=== PATIENT | male | born 1930 | race Caucasian/White ===

== ENCOUNTER 2017-06-13 19:24 | Inpatient (IN) | payer MEDICARE, MEDICAID ==
[2017-06-13] MEDS ORDERED: Sodium Chloride 0.9% 1,000 ML IV ONE (19:46)
--- NOTE | 2017-06-13 19:52 | ED Physician Chart ---
ED Chief Complaint/HPI - Patient Information Date Seen:: 06/13/17 Time Seen:: 19:40 Chief Complaint:: abdominal pain and fever History of Present Illness:: Patient had a temperature about 100.5 and abdominal [facility]. He has no vomiting or diarrhea. Historian:: EMS Review:: Nurse's Note Reviewed, Transfer documents Reviewed ED Review of Systems - Review of Systems General/Constitutional: Fever Skin: No skin lesions Head: No headache Eyes: No loss of vision ENT: No earache Neck: No neck pain Cardio Vascular: No chest pain, No palpitations Pulmonary: No SOB GI: Pain G/U: No dysuria Musculoskeletal: No bone or joint pain Endocrine: No polyuria, No polydipsia Psychiatric: Prior psych history Hematopoietic: No bruising Allergic/Immuno: No urticaria Neurological: No syncope ED Past Medical History - Past Medical History Past Medical History: Other (pleural effusion; aortic atherosclerosis; says for pulmonary embolus; rhabdomyolysis; skin cancer; arthritis;) Family History: Other (unavailable) Social History: Care Facility (unavailable), Other Surgical History: other (unavailable) Psychiatricy History: Dementia Family Medical History - Family Member Mother History Unknown: Yes ED Physical Exam - Physical Examination Other Gen/Cons comments:: Chronically ill-appearing; nonverbal Head: Atraumatic Eyes: Lids, conjuctiva normal Skin: No lymphadenopathy ENMT: External ears, nose nl Neck: No nuchal rigidity Respiratory: Nl effort/Exclusion, Clear to Auscultation Cardio Vascular: RRR GI: No tenderness/rebounding/guarding Other GI comments:: Tender left inguinal hernia : No CVA tenderness Extremities: Normal digits & nails Neuro/Psych: No focal deficits ED Labs/Radiology/EKG Results - Lab Results Results: Laboratory Results - last 24 hr 06/13/17 06/13/17 19:51 19:51 WBC 8.9 RBC 3.91 Hgb 11.0 L Hct 33.2 L MCV 84.9 MCH 28.1 MCHC Differential 33.1 RDW 14.8 Plt Count 450 H MPV 6.1 Neutrophils % 86.1 H Lymphocytes % 5.8 L Monocytes % 6.2 Eosinophils % 1.3 Basophils % 0.6 Sodium 146 H Potassium 3.7 Chloride 111 H Carbon Dioxide 29.4 Anion Gap 9.3 BUN 63 H Creatinine 1.2 Est GFR ( Amer) TNP Est GFR (Non-Af Amer) TNP BUN/Creatinine Ratio 52.5 Glucose 140 H Calcium 8.9 Lipase 47 - Radiology Results Results: CT abdomen and pelvis: Bilateral pulmonary effusions or infiltrates; large left inguinal hernia; severe distal fecal impaction; ED Septic Shock - . Is Septic Shock (SBP<90, OR Lactate>4 mmol\L) present?: No ED Reassessment (Disposition) - Reassessment Reassessment Condition:: Unchanged - Diagnosis Diagnosis:: Pneumonia; left febrile hernia fecal impaction; dehydration - Patient Disposition Admitted to:: Telemetry Spoke to:: Kurtis Valderrama Admitting Medical Physician:: Kurtis Valderrama Condition at Disposition:: Stable, Unchanged
[2017-06-13 19:57] LABS: % BASOPHILS 0.6 % (0.0-2.0); % EOSINOPHILS 1.3 % (0.0-5.0); % LYMPHOCYTES 5.8 % (20.0-50.0); % MONOCYTES 6.2 % (2.0-10.0); % NEUTROPHILS 86.1 % (40.0-80.0); BASOPHILE ABSOLUTE 0.1 Th/cumm (0-0.2); EOSINOPHILE ABSOLUTE 0.1 Th/cmm (0.1-0.4); HEMATOCRIT 33.2 % (41.0-60); LYMPHOCYTE ABSOLUTE 0.5 Th/cmm (1.5-3.0); MEAN CELL VOLUME 84.9 fl (80-99); MEAN CORPUSCULAR HEMOGLOBIN 28.1 pg (27.0-31.0); MEAN CORPUSCULAR HGB CONC 33.1 pg (28.0-36.0); MEAN PLATELET VOLUME 6.1 fl; MONOCYTE ABSOLUTE 0.6 Th/cmm (0.3-1.0); NEUTROPHILE ABSOLUTE 7.6 Th/cmm (1.8-8.0); PLATELET COUNT 450 Th/cmm (150-400); RED BLOOD COUNT 3.91 Mil/cmm (3.80-5.80); RED CELL DISTRIBUTION WIDTH 14.8 % (11.5-20.0); WHITE BLOOD COUNT 8.9 Th/cmm (4.8-10.8)
[2017-06-13 20:12] LABS: ANION GAP 9.3 (7.0-16.0); BUN - UREA NITROGEN 63 mg/dL (7-25); CALCIUM SERUM 8.9 mg/dL (8.6-10.3); CARBON DIOXIDE 29.4 mEq/L (21.0-31.0); CHLORIDE 111 mEq/L (98-107); CREATININE - SERUM 1.2 mg/dL (0.7-1.3); GLUCOSE 140 mg/dL (70-105); LIPASE 47 U/L (11-82); POTASSIUM SERUM 3.7 mEq/L (3.5-5.1); SODIUM SERUM 146 mEq/L (136-145)
[2017-06-13] MEDS ORDERED: cefTRIAXone 1 GM in Sodium Chloride 0.9% 50 ML IV ONE (21:47)
[2017-06-13] MEDS ORDERED: Acetaminophen 500 MG TAB PO PRN (23:17)
[2017-06-13] MEDS ORDERED: Morphine Sulfate 2 mg/mL 1mL Syr IVP PRN (23:18)
[2017-06-13] MEDS ORDERED: Ipratropium Neb 0.5 mg/2.5 mL UD IH PRN (23:18)
[2017-06-13] MEDS ORDERED: guaiFENesin 200 MG/10 ML UDC PO PRN (23:18)
[2017-06-13] MEDS ORDERED: Maalox 30 mL Cup PO PRN (23:18)
[2017-06-13] MEDS ORDERED: Albuterol Nebulizer 2.5mg/3mL HHN PRN (23:18)
[2017-06-13] MEDS ORDERED: D5-0.45NS 1,000 ML IV SCH (23:30)
[2017-06-14 05:27] LABS: % BASOPHILS 0.2 % (0.0-2.0); % EOSINOPHILS 2.9 % (0.0-5.0); % LYMPHOCYTES 8.9 % (20.0-50.0); % MONOCYTES 6.5 % (2.0-10.0); % NEUTROPHILS 81.5 % (40.0-80.0); EOSINOPHILE ABSOLUTE 0.2 Th/cmm (0.1-0.4); HEMATOCRIT 31.6 % (41.0-60); HEMOGLOBIN 10.4 gm/dL (12-16); LYMPHOCYTE ABSOLUTE 0.8 Th/cmm (1.5-3.0); MEAN CELL VOLUME 85.2 fl (80-99); MEAN CORPUSCULAR HGB CONC 32.8 pg (28.0-36.0); MEAN PLATELET VOLUME 6.1 fl; MONOCYTE ABSOLUTE 0.6 Th/cmm (0.3-1.0); NEUTROPHILE ABSOLUTE 6.9 Th/cmm (1.8-8.0); PLATELET COUNT 460 Th/cmm (150-400); RED BLOOD COUNT 3.71 Mil/cmm (3.80-5.80); RED CELL DISTRIBUTION WIDTH 15.1 % (11.5-20.0); WHITE BLOOD COUNT 8.5 Th/cmm (4.8-10.8)
[2017-06-14 05:50] LABS: ALB/GLOB RATIO 0.8 (1.0-1.8); ALBUMIN 3.1 gm/dL (4.2-5.5); ALKALINE PHOSPHATASE 61 U/L (34-104); ANION GAP 8.7 (7.0-16.0); BILIRUBIN,TOTAL 0.3 mg/dL (0.3-1.0); BUN - UREA NITROGEN 55 mg/dL (7-25); CALCIUM SERUM 8.8 mg/dL (8.6-10.3); CARBON DIOXIDE 31.2 mEq/L (21.0-31.0); CHLORIDE 113 mEq/L (98-107); CREATININE - SERUM 1.1 mg/dL (0.7-1.3); GLUCOSE 110 mg/dL (70-105); POTASSIUM SERUM 3.9 mEq/L (3.5-5.1); SGOT 40 U/L (13-39); SGPT/ALT 32 U/L (7-52); SODIUM SERUM 149 mEq/L (136-145); TOTAL PROTEIN,SERUM 6.8 gm/dL (6.0-8.3)
--- NOTE | 2017-06-14 08:11 | Diagnostic Imaging Report ---
Exam: Portable chest x-ray. HISTORY: Pneumonia. Findings: Portable examination of the chest at 2105 hours reviewed no prior studies available comparison. Mediastinal structures midline. The heart is not enlarged. There is evidence for left lower lobe pneumonia and effusion. COPD changes are noted. Old healed fractures of right rib cage appreciated Multiple healed fractures of the left rib cage are noted, clinical correlation recommended. IMPRESSION: Left lower lobe pneumonia and effusion. No healed fractures left rib cage acuity is unknown, clinical correlation recommended. COPD changes.
--- NOTE | 2017-06-14 08:53 | Diagnostic Imaging Report ---
CT abdomen and pelvis without intravenous contrast Indication: Abdominal pain Comparison: None, Technique: Axial images were obtained from the lung bases to the bilateral proximal femurs without IV contrast. Coronal reconstructions were made. total DLP: 374, CTDI7.8 FINDINGS: Exam is limited due to motion. There is a moderate to large partially visualized left pleural effusion. Small right effusion is noted. Bibasal passive atelectatic/consolidative changes are noted. Assessment of solid organs is limited due to lack of IV contrast. No evidence of focal hepatic or splenic lesions. Limited assessment of the pancreas demonstrates no discrete focal lesions. There is mild haziness of the regional mesenteric fat planes. No focal adrenal lesions. A large right renal cyst is noted with possible lobulation. This measures 9 x 5 cm in greatest dimension. No hydronephrosis or evidence of renal stones. Heavy atherosclerotic vascular disease noted. There is severe distal fecal impaction mass effect upon the prostate gland. The prostate gland measures 5 x 3.7 cm. There is a large left inguinal hernia containing multiple bowel loops. Gas distended loops of bowel are noted with copious amount of stool. Gas distended stomach is noted. Appendix is not well-visualized. Degenerative changes of the spine are noted all mild spinal compression deformities of L1 and L4 are noted. IMPRESSION: Large left inguinal hernia containing multiple bowel loops. Early obstructive process cannot be excluded. Clinical correlation and follow-up is recommended. Severe distal fecal impaction with mass effect upon the prostate gland. Generalized gaseous distended loops of bowel are noted with copious stool. Distended stomach. Mild haziness of the mesenteric fat planes. This is nonspecific and may be due to inflammatory process such as mesenteric adenitis. Inflammation from the pancreas is considered less likely, however, correlation should be made with patient's clinical findings. Large right renal cyst, consider follow-up with ultrasound. Moderate to large left effusion and small right effusion and bibasilar passive atelectatic and consolidative changes. Mildly prominent prostate gland, please correlate with clinical findings. Heavy atherosclerotic vascular disease.
[2017-06-14] MEDS ORDERED: Non-Formulary Item 1 EA (Arginine/Ascorbate Sod/Vite Ac [Arginaid Powder] 1 EACH) PO SCH (09:00)
[2017-06-14] MEDS ORDERED: Non-Formulary Item 1 EA (Amino Acids/Protein Hydrolys [Pro-Stat Sugar Free Liquid] 30 ML) PO SCH (09:00)
--- NOTE | 2017-06-14 09:08 | General Progress Note ---
Subjective - Review of Systems Service Date: 06/14/17 Events since last encounter: admitted for fever and abdominal pain labs ok CT scan - fecal impaction and inguinal hernia PE non-verbal, very tender right inguinal hernia, large inguinal hernia on left abdomen is soft message left with family - will need inguinal hernia repair Objective - Results Result Diagrams: 06/14/17 05:15 06/14/17 05:15 Recent Labs: Laboratory Last Values WBC 8.5 Th/cmm (4.8-10.8) 06/14/17 05:15 RBC 3.71 Mil/cmm (3.80-5.80) L 06/14/17 05:15 Hgb 10.4 gm/dL (12-16) L 06/14/17 05:15 Hct 31.6 % (41.0-60) L 06/14/17 05:15 MCV 85.2 fl (80-99) 06/14/17 05:15 MCH 28.0 pg (27.0-31.0) 06/14/17 05:15 MCHC Differential 32.8 pg (28.0-36.0) 06/14/17 05:15 RDW 15.1 % (11.5-20.0) 06/14/17 05:15 Plt Count 460 Th/cmm (150-400) H 06/14/17 05:15 MPV 6.1 fl 06/14/17 05:15 Neutrophils % 81.5 % (40.0-80.0) H 06/14/17 05:15 Lymphocytes % 8.9 % (20.0-50.0) L 06/14/17 05:15 Monocytes % 6.5 % (2.0-10.0) 06/14/17 05:15 Eosinophils % 2.9 % (0.0-5.0) 06/14/17 05:15 Basophils % 0.2 % (0.0-2.0) 06/14/17 05:15 Sodium 149 mEq/L (136-145) H 06/14/17 05:15 Potassium 3.9 mEq/L (3.5-5.1) 06/14/17 05:15 Chloride 113 mEq/L (98-107) H 06/14/17 05:15 Carbon Dioxide 31.2 mEq/L (21.0-31.0) H 06/14/17 05:15 Anion Gap 8.7 (7.0-16.0) 06/14/17 05:15 BUN 55 mg/dL (7-25) H 06/14/17 05:15 Creatinine 1.1 mg/dL (0.7-1.3) 06/14/17 05:15 Est GFR ( Amer) TNP 06/14/17 05:15 Est GFR (Non-Af Amer) TNP 06/14/17 05:15 BUN/Creatinine Ratio 50.0 06/14/17 05:15 Glucose 110 mg/dL (70-105) H 06/14/17 05:15 Calcium 8.8 mg/dL (8.6-10.3) 06/14/17 05:15 Total Bilirubin 0.3 mg/dL (0.3-1.0) 06/14/17 05:15 AST 40 U/L (13-39) H 06/14/17 05:15 ALT 32 U/L (7-52) 06/14/17 05:15 Alkaline Phosphatase 61 U/L (34-104) 06/14/17 05:15 Ammonia 35 umol/L (16-53) 06/14/17 05:15 B-Natriuretic Peptide 182.0 pg/mL (5.0-100.0) H 06/14/17 05:15 Total Protein 6.8 gm/dL (6.0-8.3) 06/14/17 05:15 Albumin 3.1 gm/dL (4.2-5.5) L 06/14/17 05:15 Globulin 3.7 gm/dL 06/14/17 05:15 Albumin/Globulin Ratio 0.8 (1.0-1.8) L 06/14/17 05:15 Lipase 47 U/L (11-82) 06/13/17 19:51 TSH 0.71 uIU/ml (0.34-5.60) 06/14/17 05:15 - Physical Exam Vitals and I&O: Vital Signs Temp 98.0 F 06/14/17 03:16 Pulse 84 06/14/17 03:16 Resp 18 06/14/17 03:16 BP 141/76 06/14/17 03:16 Pulse Ox 100 06/14/17 03:16 Intake & Output 06/13/17 06/14/17 06/14/17 18:59 06:59 18:59 Intake Total 50 Balance 50 Weight (lbs) 54.431 kg Intake: Intake, IV Amount 50 Cefepime 1 gm In Dextrose 50 5% 50 ml @ 100 mls/hr IV Q12HR [facility] Rx#:[id number] Other: # Voids 2 # Bowel Movements 1 Stool Characteristics Soft Active Medications: Current Medications Acetaminophen (Tylenol Extra Strength) 500 mg PO Q6HR PRN PRN Reason: Pain (Mild) Stop: 08/12/17 23:16 Al Hydrox/Mg Hydrox/Simethicone (Maalox) 30 ml PO Q6H PRN PRN Reason: Dyspepsia Stop: 08/12/17 23:17 Albuterol Sulfate (Albuterol 2.5mg/3ml Neb Ud) 2.5 mg HHN Q2HRT PRN PRN Reason: Shortness of Breath or Wheeze Stop: 08/12/17 23:17 Ascorbic Acid (Vitamin C) 500 mg PO DAILY [facility] Stop: 08/13/17 08:59 Guaifenesin (Robitussin) 200 mg PO Q4HR PRN PRN Reason: Cough or Congestion Stop: 08/12/17 23:17 Heparin Sodium (Porcine) (Heparin) 5,000 units SUBQ Q12HR [facility] Stop: 08/13/17 08:59 Cefepime HCl 1 gm/ Dextrose 50 mls @ 100 mls/hr IV Q12HR [facility] Stop: 08/12/17 23:29 Last Infusion: 06/14/17 07:52 Dose: Infused Dextrose/Sodium Chloride (D5-0.45ns) 1,000 mls @ 80 mls/hr IV .[id number] [facility] Stop: 08/12/17 23:29 Last Admin: 06/14/17 00:30 Dose: 80 mls/hr Ipratropium [place] (Atrovent Neb 0.5mg/2.5ml) 0.5 mg IH Q2HRT PRN PRN Reason: Shortness of Breath or Wheeze Stop: 08/12/17 23:17 Lactulose (Cephulac) 15 gm PO BID [facility] Stop: 08/13/17 08:59 Morphine Sulfate (Morphine) 1 mg IVP Q4H PRN PRN Reason: Severe Pain Stop: 08/12/17 23:17 Ondansetron HCl (Zofran) 4 mg IV Q8H PRN PRN Reason: Nausea / Vomiting Stop: 08/12/17 23:17 Tamsulosin HCl (Flomax) 0.4 mg PO HS [facility] Stop: 08/13/17 20:59 Zinc Sulfate (Zinc Sulfate) 220 mg PO DAILY [facility] Stop: 08/13/17 08:59 Zolpidem Tartrate (Ambien) 5 mg PO HS PRN PRN Reason: Insomnia Stop: 08/12/17 23:17
[2017-06-14] MEDS: Lactulose 10 Gm/15 mL 30mL UDC PO SCH ×2 (10:09→18:32)
[2017-06-14] MEDS: Multivitamin w/ Minerals Tab PO SCH (10:09)
[2017-06-14] MEDS ORDERED: Fleet Enema 135 mL RC ONE (12:00)
[2017-06-14] MEDS ORDERED: MINERAL OIL ENEMA 135 ML BOTTLE RC ONE (12:20)
[2017-06-14] MEDS ORDERED: Magnesium Citrate 1.75 GM/300 mL Bottle PO ONE (12:21)
[2017-06-14] MEDS: Dextrose 5% 1,000 ML IV SCH (14:44)
--- NOTE | 2017-06-14 14:52 | Internal Medicine Prog Note ---
Internal Medicine Subjective - Subjective Service Date: 06/14/17 ([facility] [id number]) Internal Medicine Objective - Results Result Diagrams: 06/14/17 05:15 06/14/17 05:15 Recent Labs: Laboratory Last Values WBC 8.5 Th/cmm (4.8-10.8) 06/14/17 05:15 RBC 3.71 Mil/cmm (3.80-5.80) L 06/14/17 05:15 Hgb 10.4 gm/dL (12-16) L 06/14/17 05:15 Hct 31.6 % (41.0-60) L 06/14/17 05:15 MCV 85.2 fl (80-99) 06/14/17 05:15 MCH 28.0 pg (27.0-31.0) 06/14/17 05:15 MCHC Differential 32.8 pg (28.0-36.0) 06/14/17 05:15 RDW 15.1 % (11.5-20.0) 06/14/17 05:15 Plt Count 460 Th/cmm (150-400) H 06/14/17 05:15 MPV 6.1 fl 06/14/17 05:15 Neutrophils % 81.5 % (40.0-80.0) H 06/14/17 05:15 Lymphocytes % 8.9 % (20.0-50.0) L 06/14/17 05:15 Monocytes % 6.5 % (2.0-10.0) 06/14/17 05:15 Eosinophils % 2.9 % (0.0-5.0) 06/14/17 05:15 Basophils % 0.2 % (0.0-2.0) 06/14/17 05:15 Sodium 149 mEq/L (136-145) H 06/14/17 05:15 Potassium 3.9 mEq/L (3.5-5.1) 06/14/17 05:15 Chloride 113 mEq/L (98-107) H 06/14/17 05:15 Carbon Dioxide 31.2 mEq/L (21.0-31.0) H 06/14/17 05:15 Anion Gap 8.7 (7.0-16.0) 06/14/17 05:15 BUN 55 mg/dL (7-25) H 06/14/17 05:15 Creatinine 1.1 mg/dL (0.7-1.3) 06/14/17 05:15 Est GFR ( Amer) TNP 06/14/17 05:15 Est GFR (Non-Af Amer) TNP 06/14/17 05:15 BUN/Creatinine Ratio 50.0 06/14/17 05:15 Glucose 110 mg/dL (70-105) H 06/14/17 05:15 Calcium 8.8 mg/dL (8.6-10.3) 06/14/17 05:15 Total Bilirubin 0.3 mg/dL (0.3-1.0) 06/14/17 05:15 AST 40 U/L (13-39) H 06/14/17 05:15 ALT 32 U/L (7-52) 06/14/17 05:15 Alkaline Phosphatase 61 U/L (34-104) 06/14/17 05:15 Ammonia 35 umol/L (16-53) 06/14/17 05:15 B-Natriuretic Peptide 182.0 pg/mL (5.0-100.0) H 06/14/17 05:15 Total Protein 6.8 gm/dL (6.0-8.3) 06/14/17 05:15 Albumin 3.1 gm/dL (4.2-5.5) L 06/14/17 05:15 Globulin 3.7 gm/dL 06/14/17 05:15 Albumin/Globulin Ratio 0.8 (1.0-1.8) L 06/14/17 05:15 Lipase 47 U/L (11-82) 06/13/17 19:51 TSH 0.71 uIU/ml (0.34-5.60) 06/14/17 05:15 - Physical Exam Vitals and I&O: Vital Signs Temp 98.0 F 06/14/17 03:16 Pulse 84 06/14/17 03:16 Resp 18 06/14/17 03:16 BP 141/76 06/14/17 03:16 Pulse Ox 100 06/14/17 03:16 Intake & Output 06/13/17 06/14/17 06/14/17 18:59 06:59 18:59 Intake Total 100 Balance 100 Weight (lbs) 120 lb Intake: Intake, IV Amount 100 Cefepime 1 gm In Dextrose 100 5% 50 ml @ 100 mls/hr IV Q12HR [facility] Rx#:[id number] Other: # Voids 2 # Bowel Movements 1 Stool Characteristics Soft Active Medications: Current Medications Acetaminophen (Tylenol Extra Strength) 500 mg PO Q6HR PRN PRN Reason: Pain (Mild) Stop: 08/12/17 23:16 Al Hydrox/Mg Hydrox/Simethicone (Maalox) 30 ml PO Q6H PRN PRN Reason: Dyspepsia Stop: 08/12/17 23:17 Albuterol Sulfate (Albuterol 2.5mg/3ml Neb Ud) 2.5 mg HHN Q2HRT PRN PRN Reason: Shortness of Breath or Wheeze Stop: 08/12/17 23:17 Ascorbic Acid (Vitamin C) 500 mg PO DAILY [facility] Stop: 08/13/17 08:59 Last Admin: 06/14/17 10:09 Dose: 500 mg Guaifenesin (Robitussin) 200 mg PO Q4HR PRN PRN Reason: Cough or Congestion Stop: 08/12/17 23:17 Cefepime HCl 1 gm/ Dextrose 50 mls @ 100 mls/hr IV Q12HR [facility] Stop: 08/12/17 23:29 Last Infusion: 06/14/17 10:56 Dose: Infused Dextrose (D5w) 1,000 mls @ 75 mls/hr IV .[id number] [facility] Stop: 08/13/17 13:58 Last Admin: 06/14/17 14:44 Dose: 75 mls/hr Ipratropium [place] (Atrovent Neb 0.5mg/2.5ml) 0.5 mg IH Q2HRT PRN PRN Reason: Shortness of Breath or Wheeze Stop: 08/12/17 23:17 Lactulose (Cephulac) 15 gm PO BID [facility] Stop: 08/13/17 08:59 Last Admin: 06/14/17 10:09 Dose: 15 gm Mineral Oil (Mineral Oil 30 Ml) 30 ml PO BID PRN PRN Reason: Constipation Stop: 08/13/17 12:20 Ondansetron HCl (Zofran) 4 mg IV Q8H PRN PRN Reason: Nausea / Vomiting Stop: 08/12/17 23:17 Pantoprazole Sodium (Protonix) 40 mg IVP BIDAC [facility] Stop: 08/13/17 16:59 Tamsulosin HCl (Flomax) 0.4 mg PO HS [facility] Stop: 08/13/17 20:59 Zinc Sulfate (Zinc Sulfate) 220 mg PO DAILY [facility] Stop: 08/13/17 08:59 Last Admin: 06/14/17 10:10 Dose: 220 mg Zolpidem Tartrate (Ambien) 5 mg PO HS PRN PRN Reason: Insomnia Stop: 08/12/17 23:17
--- NOTE | 2017-06-14 18:09 | History & Physical ---
ADMIT DATE: 06/14/2017 CHIEF COMPLAINT: Abdominal pain and fever. HISTORY OF PRESENT ILLNESS: This is an 87-year-old male who is a intermediate resident of [place] who is brought here to [facility] due to abdominal pain as well as fever. The patient did not have any nausea, vomiting or any diarrhea. For further management, the patient is now admitted to the telemetry unit. PAST MEDICAL HISTORY: Pleural effusion, aortic arthrosclerosis, pulmonary embolus, rhabdomyolysis, skin cancer and arthritis. FAMILY HISTORY: Noncontributory. SOCIAL HISTORY: The patient is a intermediate resident, requiring 24-hour nursing care. REVIEW OF SYSTEMS: Unable to obtain due to patient's mental status. PHYSICAL EXAMINATION: GENERAL: This is an elderly male, appears chronically ill, in no apparent distress. VITAL SIGNS: Temperature 99.0, heart rate 84, blood pressure 141/76, respirations 18 and O2 of 100%. HEENT: Head; normocephalic, atraumatic. NECK: Supple. No mass. LUNGS: Scattered rhonchi. CARDIOVASCULAR: Regular rate and rhythm. ABDOMEN: Soft and nontender. Mildly distended. LABORATORY DATA: WBC 8.5, H and H 10.4 and 31.6 and platelets of 460. Sodium 149, potassium 3.9, chloride 113, BUN 55 and creatinine 1.1. DIAGNOSTIC DATA: The patient had a chest x-ray done and impression is left lower lobe pneumonia and effusion. No healed fractures to the left ribcage, acuity is unknown, clinical correlation recommended. The patient also had a CT of the abdomen and pelvis done and the impression is large left inguinal hernia containing multiple bowel loops, early obstructive process cannot be excluded, severe distal fecal impaction with mass effect upon the prostate glad, generalized gaseous distended loops of the bowel are noted with copious stool, distended stomach, mild haziness of the mesenteric fat planes. This is nonspecific and mainly due to inflammatory process such as mesenteric adenitis. Inflammation from the pancreas considered less likely; however, correlation should be made with the patient's clinical findings. Large right renal cyst; consider follow up with ultrasound. [id number] left effusion and small right effusion and bibasilar passive atelectatic and consolidative changes, mildly prominent prostate gland; please correlate clinical findings. Heavy atherosclerotic vascular disease. ASSESSMENT: Left lower lobe pneumonia, severe distal fecal impaction with mass effect, large right renal cyst, acute febrile illness, hypernatremia, acute renal insufficiency and mild protein calorie malnutrition. PLAN: The patient to be admitted to the telemetry unit. We will get a renal ultrasound. We will also get GI consultation as well as a surgical consultation as well. Keep the patient on IV fluids for hydration. Keep the patient on IV antibiotics of Maxipime 1 gram IV q. 12 hours, inhalation treatments and supplemental oxygen. We will get patient's PSA level also for morning labs. We will continue to monitor this patient. JOB# [id number]
--- NOTE | 2017-06-15 05:08 | Consultation ---
DATE OF CONSULTATION: 06/14/2017 REASON FOR CONSULTATION: Fecal impaction, possible GI bleed. HISTORY OF PRESENT ILLNESS: This consult was obtained through the courtesy of Dr. Valderrama for this 87-year-old who was not talking, admitted to the hospital because of fever and abdominal pain. GI consult was called in for possible fecal impaction now, but at the time of this dictation, the patient has some blood in his stools. Unfortunately, the patient is not offering any history. He is not answering any questions. PAST MEDICAL HISTORY: Hyperlipidemia, history of rhabdomyolysis, skin cancer, arthritis, pleural effusion, and pulmonary embolism. PAST SURGICAL HISTORY: Not known. SOCIAL HISTORY: Not known, but at this time, the patient lives in a facility. He is at this time nonsmoker, nonalcoholic, non IV drug abuser. FAMILY HISTORY: Noncontributory. ALLERGIES: Morphine. MEDICATIONS: The patient is on Tylenol, Maalox, albuterol, cefepime, Robitussin, heparin, Atrovent, lactulose, mineral oil, Zofran, Flomax, . REVIEW OF SYSTEMS: Unobtainable. PHYSICAL EXAMINATION: GENERAL: The patient is awake, nonverbal, nonresponsive to questions. VITAL SIGNS: Blood pressure is 141/76, heart rate 84, respiratory rate 18, temperature is 98.0. HEAD AND NECK: Pupils reactive to light. Extraocular muscles could not be tested. Oral cavity, no lesion. NECK: Supple. No jugular venous distention, no carotid bruit or lymph node. CHEST: Good respiratory movements. LUNGS: Clear to auscultation. CARDIOVASCULAR: Regular rate and rhythm. No murmur or gallop. ABDOMEN: Soft, positive bowel sounds. EXTREMITIES: Lower extremities, no edema. CENTRAL NERVOUS SYSTEM: Unable to evaluate. LABORATORY DATA: Hemoglobin was 10.4. BUN and creatinine 55 and 1.1. AST is 40. CAT scan showed bilateral inguinal hernia, distended stomach, fecal impaction. IMPRESSION: An 87-year-old with abdominal pain, fecal impaction, anemia and rectal bleeding. ASSESSMENT: 1. Abdominal pain, most probably from the fecal impaction, could be also backup ileus, especially with the stomach distended. Recommendations; will give the patient mineral oil, enema and then will give mag citrate and then mineral oil and continue bowel prep and then further recommendations to follow. 2. Rectal bleeding, most likely from hemorrhoids, but it will be watched. If it continued, further workup would be needed. 3. Fecal impaction. As stated above, mineral oil, mag citrate. 4. Anemia, most probably multifactorial, but the patient is he is having blood in the stool, so we will check stool studies. The patient is having blood in stool. We will also check iron studies, TIBC, ferritin, B12, folic acid, then further recommendations to follow. Other medical problem such as arthritis, etc. as per Dr. Valderrama. Thank you Dr. Valderrama for allowing me to participate in the care of the patient. If you have any further questions, please let me know. JOB# [id number]
[2017-06-15] MEDS: Dextrose 5% 1,000 ML IV SCH (05:21)
[2017-06-15 07:04] LABS: ALB/GLOB RATIO 0.8 (1.0-1.8); ALBUMIN 2.9 gm/dL (4.2-5.5); ALKALINE PHOSPHATASE 74 U/L (34-104); ANION GAP 9.1 (7.0-16.0); BILIRUBIN,TOTAL 0.5 mg/dL (0.3-1.0); BUN - UREA NITROGEN 32 mg/dL (7-25); CALCIUM SERUM 8.8 mg/dL (8.6-10.3); CARBON DIOXIDE 31.5 mEq/L (21.0-31.0); CHLORIDE 109 mEq/L (98-107); CREATININE - SERUM 0.7 mg/dL (0.7-1.3); GLUCOSE 104 mg/dL (70-105); POTASSIUM SERUM 4.6 mEq/L (3.5-5.1); SGOT 34 U/L (13-39); SGPT/ALT 28 U/L (7-52); SODIUM SERUM 145 mEq/L (136-145); TOTAL PROTEIN,SERUM 6.5 gm/dL (6.0-8.3)
[2017-06-15 07:13] LABS: % LYMPHOCYTES 9.9 % (20.0-50.0); % MONOCYTES 9.3 % (2.0-10.0); % NEUTROPHILS 75.8 % (40.0-80.0); EOSINOPHILE ABSOLUTE 0.3 Th/cmm (0.1-0.4); HEMATOCRIT 31.9 % (41.0-60); HEMOGLOBIN 10.4 gm/dL (12-16); LYMPHOCYTE ABSOLUTE 0.7 Th/cmm (1.5-3.0); MEAN CELL VOLUME 84.9 fl (80-99); MEAN CORPUSCULAR HEMOGLOBIN 27.5 pg (27.0-31.0); MEAN CORPUSCULAR HGB CONC 32.4 pg (28.0-36.0); MEAN PLATELET VOLUME 6.3 fl; MONOCYTE ABSOLUTE 0.7 Th/cmm (0.3-1.0); NEUTROPHILE ABSOLUTE 5.3 Th/cmm (1.8-8.0); PLATELET COUNT 395 Th/cmm (150-400); RED BLOOD COUNT 3.76 Mil/cmm (3.80-5.80); RED CELL DISTRIBUTION WIDTH 15.4 % (11.5-20.0)
[2017-06-15] MEDS: Lactulose 10 Gm/15 mL 30mL UDC PO SCH ×2 (08:26→16:25)
[2017-06-15] MEDS: Multivitamin w/ Minerals Tab PO SCH (08:26)
--- NOTE | 2017-06-15 08:56 | Diagnostic Imaging Report ---
Exam: Ultrasound summation kidneys HISTORY: Elevated the renal function tests Findings: Real-time ultrasound examination of the kidneys performed multiple planes. There is no evidence of obstructive uropathy or nephrolithiasis. The study was correlated with the previous CT examination of the abdomen at 06/13/2017. The study demonstrates a large right renal cyst measuring 4.5 x 4.1 x 3.5 cm and 6.2 x 5.5 and 5.6 cm. The overall diameter right kidney is 10.9 x 4.5 x 5.1 cm The left kidney measures 8.9 x 4.9 x 4.5 cm. The urinary bladder is nondistended. IMPRESSION: Right renal cysts.
--- NOTE | 2017-06-15 09:22 | GI Progress Note ---
Subjective - Review of Systems Subjective: NO EVENTS Objective - Results Result Diagrams: 06/15/17 05:50 06/15/17 05:50 Recent Labs: Laboratory Last Values WBC 7.0 Th/cmm (4.8-10.8) 06/15/17 05:50 RBC 3.76 Mil/cmm (3.80-5.80) L 06/15/17 05:50 Hgb 10.4 gm/dL (12-16) L 06/15/17 05:50 Hct 31.9 % (41.0-60) L 06/15/17 05:50 MCV 84.9 fl (80-99) 06/15/17 05:50 MCH 27.5 pg (27.0-31.0) 06/15/17 05:50 MCHC Differential 32.4 pg (28.0-36.0) 06/15/17 05:50 RDW 15.4 % (11.5-20.0) 06/15/17 05:50 Plt Count 395 Th/cmm (150-400) 06/15/17 05:50 MPV 6.3 fl 06/15/17 05:50 Neutrophils % 75.8 % (40.0-80.0) 06/15/17 05:50 Lymphocytes % 9.9 % (20.0-50.0) L 06/15/17 05:50 Monocytes % 9.3 % (2.0-10.0) 06/15/17 05:50 Eosinophils % 5.0 % (0.0-5.0) 06/15/17 05:50 Basophils % 0.0 % (0.0-2.0) 06/15/17 05:50 Sodium 145 mEq/L (136-145) 06/15/17 05:50 Potassium 4.6 mEq/L (3.5-5.1) 06/15/17 05:50 Chloride 109 mEq/L (98-107) H 06/15/17 05:50 Carbon Dioxide 31.5 mEq/L (21.0-31.0) H 06/15/17 05:50 Anion Gap 9.1 (7.0-16.0) 06/15/17 05:50 BUN 32 mg/dL (7-25) H 06/15/17 05:50 Creatinine 0.7 mg/dL (0.7-1.3) 06/15/17 05:50 Est GFR ( Amer) TNP 06/15/17 05:50 Est GFR (Non-Af Amer) TNP 06/15/17 05:50 BUN/Creatinine Ratio 45.7 06/15/17 05:50 Glucose 104 mg/dL (70-105) 06/15/17 05:50 Calcium 8.8 mg/dL (8.6-10.3) 06/15/17 05:50 Total Bilirubin 0.5 mg/dL (0.3-1.0) 06/15/17 05:50 AST 34 U/L (13-39) 06/15/17 05:50 ALT 28 U/L (7-52) 06/15/17 05:50 Alkaline Phosphatase 74 U/L (34-104) 06/15/17 05:50 Ammonia 35 umol/L (16-53) 06/14/17 05:15 B-Natriuretic Peptide 182.0 pg/mL (5.0-100.0) H 06/14/17 05:15 Total Protein 6.5 gm/dL (6.0-8.3) 06/15/17 05:50 Albumin 2.9 gm/dL (4.2-5.5) L 06/15/17 05:50 Globulin 3.6 gm/dL 06/15/17 05:50 Albumin/Globulin Ratio 0.8 (1.0-1.8) L 06/15/17 05:50 Lipase 47 U/L (11-82) 06/13/17 19:51 TSH 0.71 uIU/ml (0.34-5.60) 06/14/17 05:15 - Physical Exam Vitals and I&O: Vital Signs Temp 98.5 F 06/15/17 04:00 Pulse 85 06/15/17 04:00 Resp 18 06/15/17 04:00 BP 134/83 06/15/17 04:00 Pulse Ox 96 06/15/17 04:00 Intake & Output 06/14/17 06/15/17 06/15/17 18:59 06:59 18:59 Intake Total 100 1100 Balance 100 1100 Weight (lbs) 54.431 kg 54.431 kg Intake: Intake, IV Amount 100 1050 Cefepime 1 gm In Dextrose 100 50 5% 50 ml @ 100 mls/hr IV Q12HR [facility] Rx#:[id number] Dextrose 5% 1,000 ml @ 75 1000 mls/hr IV .[id number] [facility] Rx#:[id number] Oral 50 Other: # Voids 1 # Bowel Movements 1 Stool Characteristics Soft Soft Active Medications: Current Medications Acetaminophen (Tylenol Extra Strength) 500 mg PO Q6HR PRN PRN Reason: Pain (Mild) Stop: 08/12/17 23:16 Al Hydrox/Mg Hydrox/Simethicone (Maalox) 30 ml PO Q6H PRN PRN Reason: Dyspepsia Stop: 08/12/17 23:17 Albuterol Sulfate (Albuterol 2.5mg/3ml Neb Ud) 2.5 mg HHN Q2HRT PRN PRN Reason: Shortness of Breath or Wheeze Stop: 08/12/17 23:17 Ascorbic Acid (Vitamin C) 500 mg PO DAILY [facility] Stop: 08/13/17 08:59 Last Admin: 06/15/17 08:26 Dose: Not Given Guaifenesin (Robitussin) 200 mg PO Q4HR PRN PRN Reason: Cough or Congestion Stop: 08/12/17 23:17 Cefepime HCl 1 gm/ Dextrose 50 mls @ 100 mls/hr IV Q12HR [facility] Stop: 08/12/17 23:29 Last Admin: 06/15/17 09:04 Dose: 100 mls/hr Dextrose (D5w) 1,000 mls @ 75 mls/hr IV .[id number] [facility] Stop: 08/13/17 13:58 Last Admin: 06/15/17 05:21 Dose: 75 mls/hr Ipratropium [place] (Atrovent Neb 0.5mg/2.5ml) 0.5 mg IH Q2HRT PRN PRN Reason: Shortness of Breath or Wheeze Stop: 08/12/17 23:17 Lactulose (Cephulac) 15 gm PO BID [facility] Stop: 08/13/17 08:59 Last Admin: 06/15/17 08:26 Dose: Not Given Mineral Oil (Mineral Oil 30 Ml) 30 ml PO BID PRN PRN Reason: Constipation Stop: 08/13/17 12:20 Ondansetron HCl (Zofran) 4 mg IV Q8H PRN PRN Reason: Nausea / Vomiting Stop: 08/12/17 23:17 Pantoprazole Sodium (Protonix) 40 mg IVP BIDAC [facility] Stop: 08/13/17 16:59 Last Admin: 06/15/17 06:44 Dose: 40 mg Tamsulosin HCl (Flomax) 0.4 mg PO HS [facility] Stop: 08/13/17 20:59 Last Admin: 06/14/17 20:40 Dose: 0.4 mg Zinc Sulfate (Zinc Sulfate) 220 mg PO DAILY [facility] Stop: 08/13/17 08:59 Last Admin: 06/15/17 08:26 Dose: Not Given Zolpidem Tartrate (Ambien) 5 mg PO HS PRN PRN Reason: Insomnia Stop: 08/12/17 23:17 Assessment/Plan - Assessment Assessment: 87 YO MALE WITH FECAL IMPACTION AND ABD HERNIA HGB STABLE 1.CONT LAXATIVES 2.SURGERY EVAL PER PRIMARY TEAM FOR HERNIA 3.CONT SUPP CARE
[2017-06-15] MEDS ORDERED: Meperidine 50 mg/mL 1mL Syr ONE ×2 (11:40→12:23)
[2017-06-15] MEDS ORDERED: fentaNYL Citrate 100 mcg/2mL Vial ONE ×2 (11:40→12:52)
[2017-06-15] MEDS ORDERED: Midazolam 1mg/ml 2 ml vial IV ONE (11:40)
[2017-06-15] MEDS ORDERED: Morphine Sulfate 2 mg/mL 1mL Syr IVP PRN (11:54)
[2017-06-15] MEDS ORDERED: fentaNYL Citrate 100 mcg/2mL Vial IVP PRN (13:41)
[2017-06-15] MEDS ORDERED: Meperidine 25 mg/mL 1mL Syr IVP PRN (13:41)
[2017-06-15] MEDS ORDERED: Lactated Ringer 1,000 ML IV SCH (13:45)
--- NOTE | 2017-06-15 14:41 | Consultation ---
DATE OF CONSULTATION: 06/15/2017 REFERRING PHYSICIAN: Dr. Valderrama. REASON FOR CONSULTATION: Abdominal pain. Thank you for referring this patient to me. HISTORY OF PRESENT ILLNESS: This is an 87-year-old male who comes in to the Emergency Room because of abdominal pain and fever. The patient underwent lab tests and CT scans. PAST MEDICAL HISTORY: Includes pleural effusion, aortic arthrosclerosis, pulmonary embolus, rhabdomyolysis, skin cancer, and arthritis. SOCIAL HISTORY: The patient apparently resides in the care home. On CT scan, the studies showed severe fecal impaction with a large right renal cyst 9 x 5 cm. No hydronephrosis. Prostate gland is enlarged. Appendix not visualized. There is a large left inguinal hernia containing multiple bowel loops. LABORATORY STUDIES: Show CBC to be essentially normal. Chemistry: BUN is high at 63, creatinine 1.2, blood sugar 140. Rest are essentially normal. PHYSICAL EXAMINATION: GENERAL: The patient is asthenic and nonverbal. : There is a large left inguinal hernia and tender right inguinal hernia. IMPRESSION: 1. Possible incarcerated left inguinal hernia. 2. Severe fecal impaction. RECOMMENDATIONS: Son was called over the phone and discussed course of treatment. Enemas were given and patient had good results from this. PLAN: We will repair inguinal hernia particular the left side with bowel loops present, although the right side is tender. Informed consent discussed with son via telephone and consent given for surgery. JOB# [id number] MTDD
--- NOTE | 2017-06-15 16:56 | Internal Medicine Prog Note ---
Internal Medicine Subjective - Subjective Service Date: 06/15/17 Patient seen and examined:: with staff Patient is:: awake, non-verbal Per staff patient has:: tolerating meds Internal Medicine Objective - Results Result Diagrams: 06/15/17 05:50 06/15/17 05:50 Recent Labs: Laboratory Last Values WBC 7.0 Th/cmm (4.8-10.8) 06/15/17 05:50 RBC 3.76 Mil/cmm (3.80-5.80) L 06/15/17 05:50 Hgb 10.4 gm/dL (12-16) L 06/15/17 05:50 Hct 31.9 % (41.0-60) L 06/15/17 05:50 MCV 84.9 fl (80-99) 06/15/17 05:50 MCH 27.5 pg (27.0-31.0) 06/15/17 05:50 MCHC Differential 32.4 pg (28.0-36.0) 06/15/17 05:50 RDW 15.4 % (11.5-20.0) 06/15/17 05:50 Plt Count 395 Th/cmm (150-400) 06/15/17 05:50 MPV 6.3 fl 06/15/17 05:50 Neutrophils % 75.8 % (40.0-80.0) 06/15/17 05:50 Lymphocytes % 9.9 % (20.0-50.0) L 06/15/17 05:50 Monocytes % 9.3 % (2.0-10.0) 06/15/17 05:50 Eosinophils % 5.0 % (0.0-5.0) 06/15/17 05:50 Basophils % 0.0 % (0.0-2.0) 06/15/17 05:50 Sodium 145 mEq/L (136-145) 06/15/17 05:50 Potassium 4.6 mEq/L (3.5-5.1) 06/15/17 05:50 Chloride 109 mEq/L (98-107) H 06/15/17 05:50 Carbon Dioxide 31.5 mEq/L (21.0-31.0) H 06/15/17 05:50 Anion Gap 9.1 (7.0-16.0) 06/15/17 05:50 BUN 32 mg/dL (7-25) H 06/15/17 05:50 Creatinine 0.7 mg/dL (0.7-1.3) 06/15/17 05:50 Est GFR ( Amer) TNP 06/15/17 05:50 Est GFR (Non-Af Amer) TNP 06/15/17 05:50 BUN/Creatinine Ratio 45.7 06/15/17 05:50 Glucose 104 mg/dL (70-105) 06/15/17 05:50 POC Glucose 99 MG/DL (70 - 105) 06/15/17 11:00 Calcium 8.8 mg/dL (8.6-10.3) 06/15/17 05:50 Total Bilirubin 0.5 mg/dL (0.3-1.0) 06/15/17 05:50 AST 34 U/L (13-39) 06/15/17 05:50 ALT 28 U/L (7-52) 06/15/17 05:50 Alkaline Phosphatase 74 U/L (34-104) 06/15/17 05:50 Ammonia 35 umol/L (16-53) 06/14/17 05:15 B-Natriuretic Peptide 182.0 pg/mL (5.0-100.0) H 06/14/17 05:15 Total Protein 6.5 gm/dL (6.0-8.3) 06/15/17 05:50 Albumin 2.9 gm/dL (4.2-5.5) L 06/15/17 05:50 Globulin 3.6 gm/dL 06/15/17 05:50 Albumin/Globulin Ratio 0.8 (1.0-1.8) L 06/15/17 05:50 Lipase 47 U/L (11-82) 06/13/17 19:51 TSH 0.71 uIU/ml (0.34-5.60) 06/14/17 05:15 - Physical Exam Vitals and I&O: Vital Signs Temp 97.0 F 06/15/17 15:00 Pulse 79 06/15/17 15:00 Resp 16 06/15/17 15:00 BP 115/71 06/15/17 15:00 Pulse Ox 100 06/15/17 15:00 Intake & Output 06/14/17 06/15/1706/15/18 18:59 06:59 18:59 Intake Total 100 1100 50 Balance 100 1100 50 Weight (lbs) 120 lb 120 lb Intake: Intake, IV Amount 100 1050 50 Cefepime 1 gm In Dextrose 100 50 50 5% 50 ml @ 100 mls/hr IV Q12HR [facility] Rx#:[id number] Dextrose 5% 1,000 ml @ 75 1000 mls/hr IV .[id number] [facility] Rx#:[id number] Oral 50 Other: # Voids 1 # Bowel Movements 1 Stool Characteristics Soft Soft Soft Active Medications: Current Medications Acetaminophen (Tylenol Extra Strength) 500 mg PO Q6HR PRN PRN Reason: Pain (Mild) Stop: 08/12/17 23:16 Al Hydrox/Mg Hydrox/Simethicone (Maalox) 30 ml PO Q6H PRN PRN Reason: Dyspepsia Stop: 08/12/17 23:17 Albuterol Sulfate (Albuterol 2.5mg/3ml Neb Ud) 2.5 mg HHN Q2HRT PRN PRN Reason: Shortness of Breath or Wheeze Stop: 08/12/17 23:17 Ascorbic Acid (Vitamin C) 500 mg PO DAILY [facility] Stop: 08/13/17 08:59 Last Admin: 06/15/17 08:26 Dose: Not Given Guaifenesin (Robitussin) 200 mg PO Q4HR PRN PRN Reason: Cough or Congestion Stop: 08/12/17 23:17 Cefepime HCl 1 gm/ Dextrose 50 mls @ 100 mls/hr IV Q12HR [facility] Stop: 08/12/17 23:29 Last Infusion: 06/15/17 09:34 Dose: Infused Dextrose (D5w) 1,000 mls @ 75 mls/hr IV .[id number] [facility] Stop: 08/13/17 13:58 Last Admin: 06/15/17 05:21 Dose: 75 mls/hr Ipratropium [place] (Atrovent Neb 0.5mg/2.5ml) 0.5 mg IH Q2HRT PRN PRN Reason: Shortness of Breath or Wheeze Stop: 08/12/17 23:17 Lactulose (Cephulac) 15 gm PO BID [facility] Stop: 08/13/17 08:59 Last Admin: 06/15/17 16:25 Dose: 15 gm Mineral Oil (Mineral Oil 30 Ml) 30 ml PO BID PRN PRN Reason: Constipation Stop: 08/13/17 12:20 Morphine Sulfate (Morphine) 2 mg IVP Q4HR PRN PRN Reason: Abdominal Pain Stop: 08/14/17 11:53 Ondansetron HCl (Zofran) 4 mg IV Q8H PRN PRN Reason: Nausea / Vomiting Stop: 08/12/17 23:17 Pantoprazole Sodium (Protonix) 40 mg IVP BIDAC [facility] Stop: 08/13/17 16:59 Last Admin: 06/15/17 16:03 Dose: 40 mg Tamsulosin HCl (Flomax) 0.4 mg PO HS [facility] Stop: 08/13/17 20:59 Last Admin: 06/14/17 20:40 Dose: 0.4 mg Zinc Sulfate (Zinc Sulfate) 220 mg PO DAILY [facility] Stop: 08/13/17 08:59 Last Admin: 06/15/17 08:26 Dose: Not Given Zolpidem Tartrate (Ambien) 5 mg PO HS PRN PRN Reason: Insomnia Stop: 08/12/17 23:17 General: weak HEENT: NC/AT, PERRLA Neck: Supple Lungs: CTAB Cardiovascular: RRR Abdomen: soft, non-tender, non-distended Neurological: unable to follow command, bedbound Internal Medicine Assmt/Plan - Assessment Assessment: left lower lobe pna severe distal fecal impaction with mass effect large right renal cyst acute febrile illness hypernatremia acute renal insufficiency mild protein calorie malnutrition - Plan Plan: continue ivf for hydration cbc/bmp in am continue ivabx follow up cxr in am supplemental oxygen bronchodilators continue current orders Nutritional Asmnt/Malnutr-PDOC - Dietary Evaluation Malnutrition Findings (Please click <Entered> for more info): Nutritional Asmnt/Malnutrition Start: 06/14/17 17: 27 Text: Status: Active Freq: Document 06/14/17 17:27 TAINA (Rec: 06/14/17 18:21 TAINA [id number]) Nutritional Asmnt/Malnutrition Patient General Information Nutritional Screening High Risk Consult Diagnosis PNA Pertinent Medical Hx/Surgical Hx pleural effusion, aortic atherosclerosis, pulmonary embolus, rhabdomyolysis, skin cancer, arthritis, dementia Subjective Information Consult received for carlos Jose Pt seen lying in bed at time of visit, non verbal noted. Current Diet Order/ Nutrition Support no diet order Pertinent Medications vitamin c, D5w, protonix, zinc Pertinent Labs 2/2 Na 149, K 3.9, Cl 113, BUN 55, Cr 1.1, Glucose 110, Ca 8 .8, AST 40 Nutritional Hx/Data Height 5 ft 2 in Height (Calculated Centimeters) 157.5 Current Weight (lbs) 120 lb Weight (Calculated Kilograms) 54.4 Weight (Calculated Grams) 54655.1 [place] Body Weight 110 % [place] Body Weight 109 Body Mass Index (BMI) 21.9 GI Symptoms GI Symptoms None Last BM 2/2 Difficult in: None Skin Integrity/Comment: laceration ulcer to right arm, reddeded to coccyx Estimated Nutritional Goals BEE in Kcals: Using Current wt Calories/Kcals/Kg 27-32 Kcals Calculated 9517-7817 Protein: Using Current wt Protein g/k-1.2 Protein Calculated 55-66 Fluid: ml 1472-1746ml (1ml/kcal) Nutritional Problem 2. Problem Problem inadequate energy intake Etiology no diet order assigned Signs/Symptoms: pt on NPO status 1. Problem Problem increased nutrition needs ( calorie and protein) Etiology increased metabolic demand and impaired skin integrity Signs/Symptoms: dx of PNA, laceration ulcer to right arm Malnutrition Alert Protein-Calorie Malnutrition N/A Is there a minimum of two criteria No selected? Query Text:Check all the applicable criteria. A minimum of two criteria are recommended for diagnosis of either severe or non-severe malnutrition. Intervention/Recommendation Comments 1. Monitor NPO status 2. Monitor wt, labs and skin integrity 3. F/U as high risk in 2-3 days, 06/16-2/5 Expected Outcomes/Goals Expected Outcomes/Goals 1. PO intake to meet at least 75% of nutritional needs. 2. Wt stability, skin to remain intact, labs to approach WNL.
[2017-06-16] MEDS: Dextrose 5% 1,000 ML IV SCH ×2 (00:13→14:05)
[2017-06-16 06:37] LABS: % BASOPHILS 0.1 % (0.0-2.0); % EOSINOPHILS 4.2 % (0.0-5.0); % LYMPHOCYTES 9.1 % (20.0-50.0); % MONOCYTES 8.4 % (2.0-10.0); % NEUTROPHILS 78.2 % (40.0-80.0); EOSINOPHILE ABSOLUTE 0.3 Th/cmm (0.1-0.4); HEMOGLOBIN 9.2 gm/dL (12-16); LYMPHOCYTE ABSOLUTE 0.6 Th/cmm (1.5-3.0); MEAN CORPUSCULAR HEMOGLOBIN 28.1 pg (27.0-31.0); MEAN CORPUSCULAR HGB CONC 33.5 pg (28.0-36.0); MEAN PLATELET VOLUME 6.2 fl; MONOCYTE ABSOLUTE 0.5 Th/cmm (0.3-1.0); NEUTROPHILE ABSOLUTE 5.1 Th/cmm (1.8-8.0); PLATELET COUNT 410 Th/cmm (150-400); RED BLOOD COUNT 3.29 Mil/cmm (3.80-5.80); RED CELL DISTRIBUTION WIDTH 14.7 % (11.5-20.0); WHITE BLOOD COUNT 6.5 Th/cmm (4.8-10.8)
[2017-06-16 06:44] LABS: HEMATOCRIT 27.6 % (41.0-60)
[2017-06-16 07:34] LABS: BUN - UREA NITROGEN 26 mg/dL (7-25); CHLORIDE 101 mEq/L (98-107); CREATININE - SERUM 0.8 mg/dL (0.7-1.3); GLUCOSE 114 mg/dL (70-105); POTASSIUM SERUM 4.4 mEq/L (3.5-5.1); SODIUM SERUM 136 mEq/L (136-145)
[2017-06-16 08:14] LABS: ANION GAP 8.6 (7.0-16.0); CARBON DIOXIDE 30.8 mEq/L (21.0-31.0)
[2017-06-16] MEDS: Lactulose 10 Gm/15 mL 30mL UDC PO SCH ×2 (08:30→16:17)
[2017-06-16] MEDS: Multivitamin w/ Minerals Tab PO SCH (08:30)
--- NOTE | 2017-06-16 08:33 | Diagnostic Imaging Report ---
Exam: Portable chest x-ray. HISTORY: Preop. Findings: Portable examination of the chest at 1059 hours reviewed compatible prior study 06/13/2017 demonstrates a cardiomegaly superimposed left-sided pneumonia and effusion. Mediastinal structures midline. Multiple healed right rib fractures are identified. Multiple nonhealed fractures of left rib cage appreciated. The aortic arch calcified. Mild interstitial infiltrate in the right lung appreciated. IMPRESSION: 1. Cardiomegaly bilateral infiltrates predominantly left-sided with superimposed left pleural effusion. Follow-up exam recommended. An element of congestion cannot side-port be excluded.
--- NOTE | 2017-06-16 08:45 | GI Progress Note ---
Subjective - Review of Systems Subjective: NO EVENTS Objective - Results Result Diagrams: 06/16/17 06:12 06/16/17 06:12 Recent Labs: Laboratory Last Values WBC 6.5 Th/cmm (4.8-10.8) 06/16/17 06:12 RBC 3.29 Mil/cmm (3.80-5.80) L 06/16/17 06:12 Hgb 9.2 gm/dL (12-16) L 06/16/17 06:12 Hct 27.6 % (41.0-60) L D 06/16/17 06:12 MCV 84.0 fl (80-99) 06/16/17 06:12 MCH 28.1 pg (27.0-31.0) 06/16/17 06:12 MCHC Differential 33.5 pg (28.0-36.0) 06/16/17 06:12 RDW 14.7 % (11.5-20.0) 06/16/17 06:12 Plt Count 410 Th/cmm (150-400) H 06/16/17 06:12 MPV 6.2 fl 06/16/17 06:12 Neutrophils % 78.2 % (40.0-80.0) 06/16/17 06:12 Lymphocytes % 9.1 % (20.0-50.0) L 06/16/17 06:12 Monocytes % 8.4 % (2.0-10.0) 06/16/17 06:12 Eosinophils % 4.2 % (0.0-5.0) 06/16/17 06:12 Basophils % 0.1 % (0.0-2.0) 06/16/17 06:12 Sodium 136 mEq/L (136-145) 06/16/17 06:12 Potassium 4.4 mEq/L (3.5-5.1) 06/16/17 06:12 Chloride 101 mEq/L (98-107) 06/16/17 06:12 Carbon Dioxide 30.8 mEq/L (21.0-31.0) 06/16/17 06:12 Anion Gap 8.6 (7.0-16.0) 06/16/17 06:12 BUN 26 mg/dL (7-25) H 06/16/17 06:12 Creatinine 0.8 mg/dL (0.7-1.3) 06/16/17 06:12 Est GFR ( Amer) TNP 06/16/17 06:12 Est GFR (Non-Af Amer) TNP 06/16/17 06:12 BUN/Creatinine Ratio 32.5 06/16/17 06:12 Glucose 114 mg/dL (70-105) H 06/16/17 06:12 POC Glucose 99 MG/DL (70 - 105) 06/15/17 11:00 Calcium 8.0 mg/dL (8.6-10.3) L 06/16/17 06:12 Total Bilirubin 0.5 mg/dL (0.3-1.0) 06/15/17 05:50 AST 34 U/L (13-39) 06/15/17 05:50 ALT 28 U/L (7-52) 06/15/17 05:50 Alkaline Phosphatase 74 U/L (34-104) 06/15/17 05:50 Ammonia 35 umol/L (16-53) 06/14/17 05:15 B-Natriuretic Peptide 182.0 pg/mL (5.0-100.0) H 06/14/17 05:15 Total Protein 6.5 gm/dL (6.0-8.3) 06/15/17 05:50 Albumin 2.9 gm/dL (4.2-5.5) L 06/15/17 05:50 Globulin 3.6 gm/dL 06/15/17 05:50 Albumin/Globulin Ratio 0.8 (1.0-1.8) L 06/15/17 05:50 Lipase 47 U/L (11-82) 06/13/17 19:51 TSH 0.71 uIU/ml (0.34-5.60) 06/14/17 05:15 - Physical Exam Vitals and I&O: Vital Signs Temp 98.6 F 06/16/17 08:00 Pulse 86 06/16/17 08:00 Resp 19 06/16/17 08:00 BP 95/68 06/16/17 08:00 Pulse Ox 95 06/16/17 08:00 Intake & Output 06/15/17 06/16/17 06/16/17 18:59 06:59 18:59 Intake Total 1050 290 Output Total 1 Balance 1050 289 Weight (lbs) 54.431 kg Intake: Intake, IV Amount 1050 50 Cefepime 1 gm In Dextrose 50 50 5% 50 ml @ 100 mls/hr IV Q12HR [facility] Rx#:[id number] Dextrose 5% 1,000 ml @ 75 1000 mls/hr IV .[id number] [facility] Rx#:[id number] Oral 240 Output: Urine 1 Other: # Voids 2 # Bowel Movements 0 Stool Characteristics Soft Soft Active Medications: Current Medications Acetaminophen (Tylenol Extra Strength) 500 mg PO Q6HR PRN PRN Reason: Pain (Mild) Stop: 08/12/17 23:16 Al Hydrox/Mg Hydrox/Simethicone (Maalox) 30 ml PO Q6H PRN PRN Reason: Dyspepsia Stop: 08/12/17 23:17 Albuterol Sulfate (Albuterol 2.5mg/3ml Neb Ud) 2.5 mg HHN Q2HRT PRN PRN Reason: Shortness of Breath or Wheeze Stop: 08/12/17 23:17 Ascorbic Acid (Vitamin C) 500 mg PO DAILY [facility] Stop: 08/13/17 08:59 Last Admin: 06/16/17 08:30 Dose: 500 mg Guaifenesin (Robitussin) 200 mg PO Q4HR PRN PRN Reason: Cough or Congestion Stop: 08/12/17 23:17 Cefepime HCl 1 gm/ Dextrose 50 mls @ 100 mls/hr IV Q12HR [facility] Stop: 08/12/17 23:29 Last Admin: 06/16/17 08:26 Dose: 100 mls/hr Dextrose (D5w) 1,000 mls @ 75 mls/hr IV .[id number] [facility] Stop: 08/13/17 13:58 Last Admin: 06/16/17 00:13 Dose: 75 mls/hr Ipratropium [place] (Atrovent Neb 0.5mg/2.5ml) 0.5 mg IH Q2HRT PRN PRN Reason: Shortness of Breath or Wheeze Stop: 08/12/17 23:17 Lactulose (Cephulac) 15 gm PO BID [facility] Stop: 08/13/17 08:59 Last Admin: 06/16/17 08:30 Dose: 15 gm Mineral Oil (Mineral Oil 30 Ml) 30 ml PO BID PRN PRN Reason: Constipation Stop: 08/13/17 12:20 Last Admin: 06/16/17 06:36 Dose: 30 ml Morphine Sulfate (Morphine) 2 mg IVP Q4HR PRN PRN Reason: Abdominal Pain Stop: 08/14/17 11:53 Ondansetron HCl (Zofran) 4 mg IV Q8H PRN PRN Reason: Nausea / Vomiting Stop: 08/12/17 23:17 Pantoprazole Sodium (Protonix) 40 mg IVP BIDAC [facility] Stop: 08/13/17 16:59 Last Admin: 06/16/17 06:36 Dose: 40 mg Tamsulosin HCl (Flomax) 0.4 mg PO HS [facility] Stop: 08/13/17 20:59 Last Admin: 06/15/17 20:35 Dose: 0.4 mg Zinc Sulfate (Zinc Sulfate) 220 mg PO DAILY [facility] Stop: 08/13/17 08:59 Last Admin: 06/16/17 08:30 Dose: 220 mg Zolpidem Tartrate (Ambien) 5 mg PO HS PRN PRN Reason: Insomnia Stop: 08/12/17 23:17 Assessment/Plan - Assessment Assessment: 87 YO MALE WITH FECAL IMPACTION AND ABD HERNIA HGB STABLE 1.CONT LAXATIVES 2.SURGERY INPUT 3.CONT SUPP CARE
--- NOTE | 2017-06-16 12:53 | General Progress Note ---
Subjective - Review of Systems Service Date: 06/16/17 Events since last encounter: incisions clean may DC from surgery viewpoint Objective - Results Result Diagrams: 06/16/17 06:12 06/16/17 06:12 Recent Labs: Laboratory Last Values WBC 6.5 Th/cmm (4.8-10.8) 06/16/17 06:12 RBC 3.29 Mil/cmm (3.80-5.80) L 06/16/17 06:12 Hgb 9.2 gm/dL (12-16) L 06/16/17 06:12 Hct 27.6 % (41.0-60) L D 06/16/17 06:12 MCV 84.0 fl (80-99) 06/16/17 06:12 MCH 28.1 pg (27.0-31.0) 06/16/17 06:12 MCHC Differential 33.5 pg (28.0-36.0) 06/16/17 06:12 RDW 14.7 % (11.5-20.0) 06/16/17 06:12 Plt Count 410 Th/cmm (150-400) H 06/16/17 06:12 MPV 6.2 fl 06/16/17 06:12 Neutrophils % 78.2 % (40.0-80.0) 06/16/17 06:12 Lymphocytes % 9.1 % (20.0-50.0) L 06/16/17 06:12 Monocytes % 8.4 % (2.0-10.0) 06/16/17 06:12 Eosinophils % 4.2 % (0.0-5.0) 06/16/17 06:12 Basophils % 0.1 % (0.0-2.0) 06/16/17 06:12 Sodium 136 mEq/L (136-145) 06/16/17 06:12 Potassium 4.4 mEq/L (3.5-5.1) 06/16/17 06:12 Chloride 101 mEq/L (98-107) 06/16/17 06:12 Carbon Dioxide 30.8 mEq/L (21.0-31.0) 06/16/17 06:12 Anion Gap 8.6 (7.0-16.0) 06/16/17 06:12 BUN 26 mg/dL (7-25) H 02/04/18 06:12 Creatinine 0.8 mg/dL (0.7-1.3) 06/16/17 06:12 Est GFR ( Amer) TNP 06/16/17 06:12 Est GFR (Non-Af Amer) TNP 06/16/17 06:12 BUN/Creatinine Ratio 32.5 06/16/17 06:12 Glucose 114 mg/dL (70-105) H 06/16/17 06:12 POC Glucose 99 MG/DL (70 - 105) 06/15/17 11:00 Calcium 8.0 mg/dL (8.6-10.3) L 06/16/17 06:12 Total Bilirubin 0.5 mg/dL (0.3-1.0) 06/15/17 05:50 AST 34 U/L (13-39) 06/15/17 05:50 ALT 28 U/L (7-52) 06/15/17 05:50 Alkaline Phosphatase 74 U/L (34-104) 06/15/17 05:50 Ammonia 35 umol/L (16-53) 06/14/17 05:15 B-Natriuretic Peptide 182.0 pg/mL (5.0-100.0) H 06/14/17 05:15 Total Protein 6.5 gm/dL (6.0-8.3) 06/15/17 05:50 Albumin 2.9 gm/dL (4.2-5.5) L 06/15/17 05:50 Globulin 3.6 gm/dL 06/15/17 05:50 Albumin/Globulin Ratio 0.8 (1.0-1.8) L 06/15/17 05:50 Lipase 47 U/L (11-82) 06/13/17 19:51 TSH 0.71 uIU/ml (0.34-5.60) 06/14/17 05:15 Stool Occult Blood NEGATIVE (NEGATIVE) 06/16/17 11:47 - Physical Exam Vitals and I&O: Vital Signs Temp 97.5 F 06/16/17 12:00 Pulse 89 06/16/17 12:00 Resp 19 06/16/17 12:00 BP 123/69 06/16/17 12:00 Pulse Ox 94 06/16/17 12:00 Intake & Output 02/0306/16/17 06/16/17 18:59 06:59 18:59 Intake Total 1050 290 50 Output Total 1 Balance 1050 289 50 Weight (lbs) 54.431 kg Intake: Intake, IV Amount 1050 50 50 Cefepime 1 gm In Dextrose 50 50 50 5% 50 ml @ 100 mls/hr IV Q12HR [facility] Rx#:[id number] Dextrose 5% 1,000 ml @ 75 1000 mls/hr IV .[id number] [facility] Rx#:[id number] Oral 240 Output: Urine 1 Other: # Voids 2 # Bowel Movements 0 Stool Characteristics Soft Soft Soft Active Medications: Current Medications Acetaminophen (Tylenol Extra Strength) 500 mg PO Q6HR PRN PRN Reason: Pain (Mild) Stop: 08/12/17 23:16 Al Hydrox/Mg Hydrox/Simethicone (Maalox) 30 ml PO Q6H PRN PRN Reason: Dyspepsia Stop: 08/12/17 23:17 Albuterol Sulfate (Albuterol 2.5mg/3ml Neb Ud) 2.5 mg HHN Q2HRT PRN PRN Reason: Shortness of Breath or Wheeze Stop: 08/12/17 23:17 Ascorbic Acid (Vitamin C) 500 mg PO DAILY [facility] Stop: 08/13/17 08:59 Last Admin: 06/16/17 08:30 Dose: 500 mg Guaifenesin (Robitussin) 200 mg PO Q4HR PRN PRN Reason: Cough or Congestion Stop: 08/12/17 23:17 Cefepime HCl 1 gm/ Dextrose 50 mls @ 100 mls/hr IV Q12HR [facility] Stop: 08/12/17 23:29 Last Infusion: 06/16/17 08:56 Dose: Infused Dextrose (D5w) 1,000 mls @ 75 mls/hr IV .[id number] [facility] Stop: 08/13/17 13:58 Last Admin: 06/16/17 00:13 Dose: 75 mls/hr Ipratropium [place] (Atrovent Neb 0.5mg/2.5ml) 0.5 mg IH Q2HRT PRN PRN Reason: Shortness of Breath or Wheeze Stop: 08/12/17 23:17 Lactulose (Cephulac) 15 gm PO BID [facility] Stop: 08/13/17 08:59 Last Admin: 06/16/17 08:30 Dose: 15 gm Mineral Oil (Mineral Oil 30 Ml) 30 ml PO BID PRN PRN Reason: Constipation Stop: 08/13/17 12:20 Last Admin: 06/16/17 06:36 Dose: 30 ml Morphine Sulfate (Morphine) 2 mg IVP Q4HR PRN PRN Reason: Abdominal Pain Stop: 08/14/17 11:53 Ondansetron HCl (Zofran) 4 mg IV Q8H PRN PRN Reason: Nausea / Vomiting Stop: 08/12/17 23:17 Pantoprazole Sodium (Protonix) 40 mg IVP BIDAC [facility] Stop: 08/13/17 16:59 Last Admin: 06/16/17 06:36 Dose: 40 mg Tamsulosin HCl (Flomax) 0.4 mg PO HS [facility] Stop: 08/13/17 20:59 Last Admin: 06/15/17 20:35 Dose: 0.4 mg Zinc Sulfate (Zinc Sulfate) 220 mg PO DAILY [facility] Stop: 08/13/17 08:59 Last Admin: 06/16/17 08:30 Dose: 220 mg Zolpidem Tartrate (Ambien) 5 mg PO HS PRN PRN Reason: Insomnia Stop: 08/12/17 23:17 Nutritional Asmnt/Malnutr-PDOC - Dietary Evaluation Malnutrition Findings (Please click <Entered> for more info): Nutritional Asmnt/Malnutrition Start: 06/14/17 17: 27 Text: Status: Active Freq: Document 06/14/17 17:27 DELIA (Rec: 06/14/17 18:21 DELIA [email or web address]) Nutritional Asmnt/Malnutrition Patient General Information Nutritional Screening High Risk Consult Diagnosis PNA Pertinent Medical Hx/Surgical Hx pleural effusion, aortic atherosclerosis, pulmonary embolus, rhabdomyolysis, skin cancer, arthritis, dementia Subjective Information Consult received for carlos Tong . Pt seen lying in bed at time of visit, non verbal noted. Current Diet Order/ Nutrition Support no diet order Pertinent Medications vitamin c, D5w, protonix, zinc Pertinent Labs 2/2 Na 149, K 3.9, Cl 113, BUN 55, Cr 1.1, Glucose 110, Ca 8 .8, AST 40 Nutritional Hx/Data Height 1.57 m Height (Calculated Centimeters) 157.5 Current Weight (lbs) 54.431 kg Weight (Calculated Kilograms) 54.4 Weight (Calculated Grams) 35461.1 [place] Body Weight 110 % [place] Body Weight 109 Body Mass Index (BMI) 21.9 GI Symptoms GI Symptoms None Last BM 2/2 Difficult in: None Skin Integrity/Comment: laceration ulcer to right arm, reddeded to coccyx Estimated Nutritional Goals BEE in Kcals: Using Current wt Calories/Kcals/Kg 27-32 Kcals Calculated 9282-3563 Protein: Using Current wt Protein g/k-1.2 Protein Calculated 55-66 Fluid: ml 1472-1746ml (1ml/kcal) Nutritional Problem 2. Problem Problem inadequate energy intake Etiology no diet order assigned Signs/Symptoms: pt on NPO status 1. Problem Problem increased nutrition needs ( calorie and protein) Etiology increased metabolic demand and impaired skin integrity Signs/Symptoms: dx of PNA, laceration ulcer to right arm Malnutrition Alert Protein-Calorie Malnutrition N/A Is there a minimum of two criteria No selected? Query Text:Check all the applicable criteria. A minimum of two criteria are recommended for diagnosis of either severe or non-severe malnutrition. Intervention/Recommendation Comments 1. Monitor NPO status 2. Monitor wt, labs and skin integrity 3. F/U as high risk in 2-3 days, 2/4-2/5 Expected Outcomes/Goals Expected Outcomes/Goals 1. PO intake to meet at least 75% of nutritional needs. 2. Wt stability, skin to remain intact, labs to approach WNL.
--- NOTE | 2017-06-16 15:39 | Internal Medicine Prog Note ---
Internal Medicine Subjective - Subjective Service Date: 06/16/17 Patient seen and examined:: with staff Patient is:: awake, non-verbal Per staff patient has:: tolerating meds Internal Medicine Objective - Results Result Diagrams: 06/16/17 06:12 06/16/17 06:12 Recent Labs: Laboratory Last Values WBC 6.5 Th/cmm (4.8-10.8) 06/16/17 06:12 RBC 3.29 Mil/cmm (3.80-5.80) L 06/16/17 06:12 Hgb 9.2 gm/dL (12-16) L 06/16/17 06:12 Hct 27.6 % (41.0-60) L D 06/16/17 06:12 MCV 84.0 fl (80-99) 06/16/17 06:12 MCH 28.1 pg (27.0-31.0) 06/16/17 06:12 MCHC Differential 33.5 pg (28.0-36.0) 06/16/17 06:12 RDW 14.7 % (11.5-20.0) 06/16/17 06:12 Plt Count 410 Th/cmm (150-400) H 06/16/17 06:12 MPV 6.2 fl 06/16/17 06:12 Neutrophils % 78.2 % (40.0-80.0) 06/16/17 06:12 Lymphocytes % 9.1 % (20.0-50.0) L 06/16/17 06:12 Monocytes % 8.4 % (2.0-10.0) 06/16/17 06:12 Eosinophils % 4.2 % (0.0-5.0) 06/16/17 06:12 Basophils % 0.1 % (0.0-2.0) 06/16/17 06:12 Sodium 136 mEq/L (136-145) 06/16/17 06:12 Potassium 4.4 mEq/L (3.5-5.1) 06/16/17 06:12 Chloride 101 mEq/L (98-107) 06/16/17 06:12 Carbon Dioxide 30.8 mEq/L (21.0-31.0) 06/16/17 06:12 Anion Gap 8.6 (7.0-16.0) 06/16/17 06:12 BUN 26 mg/dL (7-25) H 06/16/17 06:12 Creatinine 0.8 mg/dL (0.7-1.3) 06/16/17 06:12 Est GFR ( Amer) TNP 06/16/17 06:12 Est GFR (Non-Af Amer) TNP 06/16/17 06:12 BUN/Creatinine Ratio 32.5 06/16/17 06:12 Glucose 114 mg/dL (70-105) H 06/16/17 06:12 POC Glucose 99 MG/DL (70 - 105) 06/15/17 11:00 Calcium 8.0 mg/dL (8.6-10.3) L 06/16/17 06:12 Total Bilirubin 0.5 mg/dL (0.3-1.0) 06/15/17 05:50 AST 34 U/L (13-39) 06/15/17 05:50 ALT 28 U/L (7-52) 06/15/17 05:50 Alkaline Phosphatase 74 U/L (34-104) 06/15/17 05:50 Ammonia 35 umol/L (16-53) 06/14/17 05:15 B-Natriuretic Peptide 182.0 pg/mL (5.0-100.0) H 06/14/17 05:15 Total Protein 6.5 gm/dL (6.0-8.3) 06/15/17 05:50 Albumin 2.9 gm/dL (4.2-5.5) L 06/15/17 05:50 Globulin 3.6 gm/dL 06/15/17 05:50 Albumin/Globulin Ratio 0.8 (1.0-1.8) L 06/15/17 05:50 Lipase 47 U/L (11-82) 06/13/17 19:51 TSH 0.71 uIU/ml (0.34-5.60) 06/14/17 05:15 Stool Occult Blood NEGATIVE (NEGATIVE) 06/16/17 11:47 - Physical Exam Vitals and I&O: Vital Signs Temp 97.5 F 06/16/17 12:00 Pulse 89 06/16/17 12:00 Resp 19 06/16/17 13:00 BP 123/69 06/16/17 12:00 Pulse Ox 94 06/16/17 12:00 Intake & Output 06/15/17 06/16/17 06/16/17 18:59 06:59 18:59 Intake Total 9641 634 7788 Output Total 1 Balance 3792 902 1456 Weight (lbs) 120 lb Intake: Intake, IV Amount 1050 50 1050 Cefepime 1 gm In Dextrose 50 50 50 5% 50 ml @ 100 mls/hr IV Q12HR [facility] Rx#:[id number] Dextrose 5% 1,000 ml @ 75 1000 1000 mls/hr IV .[id number] [facility] Rx#:[id number] Oral 240 Output: Urine 1 Other: # Voids 2 # Bowel Movements 0 Stool Characteristics Soft Soft Soft Active Medications: Current Medications Acetaminophen (Tylenol Extra Strength) 500 mg PO Q6HR PRN PRN Reason: Pain (Mild) Stop: 08/12/17 23:16 Al Hydrox/Mg Hydrox/Simethicone (Maalox) 30 ml PO Q6H PRN PRN Reason: Dyspepsia Stop: 08/12/17 23:17 Albuterol Sulfate (Albuterol 2.5mg/3ml Neb Ud) 2.5 mg HHN Q2HRT PRN PRN Reason: Shortness of Breath or Wheeze Stop: 08/12/17 23:17 Ascorbic Acid (Vitamin C) 500 mg PO DAILY [facility] Stop: 08/13/17 08:59 Last Admin: 06/16/17 08:30 Dose: 500 mg Guaifenesin (Robitussin) 200 mg PO Q4HR PRN PRN Reason: Cough or Congestion Stop: 08/12/17 23:17 Cefepime HCl 1 gm/ Dextrose 50 mls @ 100 mls/hr IV Q12HR [facility] Stop: 08/12/17 23:29 Last Infusion: 06/16/17 08:56 Dose: Infused Dextrose (D5w) 1,000 mls @ 75 mls/hr IV .[id number] [facility] Stop: 08/13/17 13:58 Last Admin: 06/16/17 14:05 Dose: 75 mls/hr Ipratropium [place] (Atrovent Neb 0.5mg/2.5ml) 0.5 mg IH Q2HRT PRN PRN Reason: Shortness of Breath or Wheeze Stop: 08/12/17 23:17 Lactulose (Cephulac) 15 gm PO BID [facility] Stop: 08/13/17 08:59 Last Admin: 06/16/17 08:30 Dose: 15 gm Mineral Oil (Mineral Oil 30 Ml) 30 ml PO BID PRN PRN Reason: Constipation Stop: 08/13/17 12:20 Last Admin: 06/16/17 06:36 Dose: 30 ml Morphine Sulfate (Morphine) 2 mg IVP Q4HR PRN PRN Reason: Abdominal Pain Stop: 08/14/17 11:53 Ondansetron HCl (Zofran) 4 mg IV Q8H PRN PRN Reason: Nausea / Vomiting Stop: 08/12/17 23:17 Pantoprazole Sodium (Protonix) 40 mg IVP BIDAC [facility] Stop: 08/13/17 16:59 Last Admin: 06/16/17 06:36 Dose: 40 mg Tamsulosin HCl (Flomax) 0.4 mg PO HS [facility] Stop: 08/13/17 20:59 Last Admin: 06/15/17 20:35 Dose: 0.4 mg Zinc Sulfate (Zinc Sulfate) 220 mg PO DAILY [facility] Stop: 08/13/17 08:59 Last Admin: 06/16/17 08:30 Dose: 220 mg Zolpidem Tartrate (Ambien) 5 mg PO HS PRN PRN Reason: Insomnia Stop: 08/12/17 23:17 General: weak HEENT: NC/AT, PERRLA Neck: Supple Lungs: CTAB Cardiovascular: RRR Abdomen: soft, non-tender, non-distended Neurological: unable to follow command, bedbound Internal Medicine Assmt/Plan - Assessment Assessment: left lower lobe pna severe distal fecal impaction with mass effect large right renal cyst acute febrile illness hypernatremia acute renal insufficiency mild protein calorie malnutrition - Plan Plan: continue ivf for hydration cbc/bmp in am continue ivabx supplemental oxygen bronchodilators continue current orders Nutritional Asmnt/Malnutr-PDOC - Dietary Evaluation Malnutrition Findings (Please click <Entered> for more info): Nutritional Asmnt/Malnutrition Start: 06/14/17 17: 27 Text: Status: Active Freq: Document 06/14/17 17:27 TAINA (Rec: 06/14/17 18:21 [email or web address]) Nutritional Asmnt/Malnutrition Patient General Information Nutritional Screening High Risk Consult Diagnosis PNA Pertinent Medical Hx/Surgical Hx pleural effusion, aortic atherosclerosis, pulmonary embolus, rhabdomyolysis, skin cancer, arthritis, dementia Subjective Information Consult received for carlos Tong . Pt seen lying in bed at time of visit, non verbal noted. Current Diet Order/ Nutrition Support no diet order Pertinent Medications vitamin c, D5w, protonix, zinc Pertinent Labs 2/2 Na 149, K 3.9, Cl 113, BUN 55, Cr 1.1, Glucose 110, Ca 8 .8, AST 40 Nutritional Hx/Data Height 5 ft 2 in Height (Calculated Centimeters) 157.5 Current Weight (lbs) 120 lb Weight (Calculated Kilograms) 54.4 Weight (Calculated Grams) 04474.1 [place] Body Weight 110 % [place] Body Weight 109 Body Mass Index (BMI) 21.9 GI Symptoms GI Symptoms None Last BM 2/2 Difficult in: None Skin Integrity/Comment: laceration ulcer to right arm, reddeded to coccyx Estimated Nutritional Goals BEE in Kcals: Using Current wt Calories/Kcals/Kg 27-32 Kcals Calculated 2115-0811 Protein: Using Current wt Protein g/k-1.2 Protein Calculated 55-66 Fluid: ml 1472-1746ml (1ml/kcal) Nutritional Problem 2. Problem Problem inadequate energy intake Etiology no diet order assigned Signs/Symptoms: pt on NPO status 1. Problem Problem increased nutrition needs ( calorie and protein) Etiology increased metabolic demand and impaired skin integrity Signs/Symptoms: dx of PNA, laceration ulcer to right arm Malnutrition Alert Protein-Calorie Malnutrition N/A Is there a minimum of two criteria No selected? Query Text:Check all the applicable criteria. A minimum of two criteria are recommended for diagnosis of either severe or non-severe malnutrition. Intervention/Recommendation Comments 1. Monitor NPO status 2. Monitor wt, labs and skin integrity 3. F/U as high risk in 2-3 days, /-2/5 Expected Outcomes/Goals Expected Outcomes/Goals 1. PO intake to meet at least 75% of nutritional needs. 2. Wt stability, skin to remain intact, labs to approach WNL.
[2017-06-16] MEDS ORDERED: Probiotic Screen MC PRN (16:48)
[2017-06-17 06:12] LABS: % BASOPHILS 0.3 % (0.0-2.0); % EOSINOPHILS 3.8 % (0.0-5.0); % LYMPHOCYTES 9.6 % (20.0-50.0); % MONOCYTES 8.8 % (2.0-10.0); % NEUTROPHILS 77.5 % (40.0-80.0); EOSINOPHILE ABSOLUTE 0.3 Th/cmm (0.1-0.4); HEMATOCRIT 28.5 % (41.0-60); HEMOGLOBIN 9.5 gm/dL (12-16); LYMPHOCYTE ABSOLUTE 0.6 Th/cmm (1.5-3.0); MEAN CELL VOLUME 83.8 fl (80-99); MEAN CORPUSCULAR HEMOGLOBIN 27.8 pg (27.0-31.0); MEAN CORPUSCULAR HGB CONC 33.2 pg (28.0-36.0); MEAN PLATELET VOLUME 5.8 fl; MONOCYTE ABSOLUTE 0.6 Th/cmm (0.3-1.0); NEUTROPHILE ABSOLUTE 5.1 Th/cmm (1.8-8.0); PLATELET COUNT 425 Th/cmm (150-400); RED CELL DISTRIBUTION WIDTH 14.2 % (11.5-20.0); WHITE BLOOD COUNT 6.6 Th/cmm (4.8-10.8)
[2017-06-17 06:29] LABS: ANION GAP 8.8 (7.0-16.0); BUN - UREA NITROGEN 22 mg/dL (7-25); CALCIUM SERUM 8.1 mg/dL (8.6-10.3); CARBON DIOXIDE 30.1 mEq/L (21.0-31.0); CHLORIDE 97 mEq/L (98-107); CREATININE - SERUM 0.8 mg/dL (0.7-1.3); GLUCOSE 109 mg/dL (70-105); POTASSIUM SERUM 3.9 mEq/L (3.5-5.1); SODIUM SERUM 132 mEq/L (136-145)
[2017-06-17] MEDS: Dextrose 5% 1,000 ML IV SCH (06:53)
[2017-06-17] MEDS: Lactulose 10 Gm/15 mL 30mL UDC PO SCH ×2 (08:57→17:28)
[2017-06-17] MEDS: Multivitamin w/ Minerals Tab PO SCH (08:57)
--- NOTE | 2017-06-17 09:07 | General Progress Note ---
Subjective - Review of Systems Service Date: 06/17/16 Events since last encounter: mary anne is clean and dry eating and drinking ok Objective - Results Result Diagrams: 06/17/17 06:05 06/17/17 06:05 Recent Labs: Laboratory Last Values WBC 6.6 Th/cmm (4.8-10.8) 06/17/17 06:05 RBC 3.40 Mil/cmm (3.80-5.80) L 06/17/17 06:05 Hgb 9.5 gm/dL (12-16) L 06/17/17 06:05 Hct 28.5 % (41.0-60) L 06/17/17 06:05 MCV 83.8 fl (80-99) 06/17/17 06:05 MCH 27.8 pg (27.0-31.0) 06/17/17 06:05 MCHC Differential 33.2 pg (28.0-36.0) 06/17/17 06:05 RDW 14.2 % (11.5-20.0) 06/17/17 06:05 Plt Count 425 Th/cmm (150-400) H 06/17/17 06:05 MPV 5.8 fl 06/17/17 06:05 Neutrophils % 77.5 % (40.0-80.0) 06/17/17 06:05 Lymphocytes % 9.6 % (20.0-50.0) L 06/17/17 06:05 Monocytes % 8.8 % (2.0-10.0) 06/17/17 06:05 Eosinophils % 3.8 % (0.0-5.0) 06/17/17 06:05 Basophils % 0.3 % (0.0-2.0) 06/17/17 06:05 Sodium 132 mEq/L (136-145) L 06/17/17 06:05 Potassium 3.9 mEq/L (3.5-5.1) 06/17/17 06:05 Chloride 97 mEq/L (98-107) L 06/17/17 06:05 Carbon Dioxide 30.1 mEq/L (21.0-31.0) 06/17/17 06:05 Anion Gap 8.8 (7.0-16.0) 06/17/17 06:05 BUN 22 mg/dL (7-25) 06/17/17 06:05 Creatinine 0.8 mg/dL (0.7-1.3) 06/17/17 06:05 Est GFR ( Amer) TNP 06/17/17 06:05 Est GFR (Non-Af Amer) TNP 06/17/17 06:05 BUN/Creatinine Ratio 27.5 06/17/17 06:05 Glucose 109 mg/dL (70-105) H 06/17/17 06:05 POC Glucose 99 MG/DL (70 - 105) 06/15/17 11:00 Calcium 8.1 mg/dL (8.6-10.3) L 06/17/17 06:05 Total Bilirubin 0.5 mg/dL (0.3-1.0) 06/15/17 05:50 AST 34 U/L (13-39) 06/15/17 05:50 ALT 28 U/L (7-52) 06/15/17 05:50 Alkaline Phosphatase 74 U/L (34-104) 06/15/17 05:50 Ammonia 35 umol/L (16-53) 06/14/17 05:15 B-Natriuretic Peptide 182.0 pg/mL (5.0-100.0) H 06/14/17 05:15 Total Protein 6.5 gm/dL (6.0-8.3) 06/15/17 05:50 Albumin 2.9 gm/dL (4.2-5.5) L 06/15/17 05:50 Globulin 3.6 gm/dL 06/15/17 05:50 Albumin/Globulin Ratio 0.8 (1.0-1.8) L 06/15/17 05:50 Lipase 47 U/L (11-82) 06/13/17 19:51 TSH 0.71 uIU/ml (0.34-5.60) 06/14/17 05:15 Stool Occult Blood NEGATIVE (NEGATIVE) 06/16/17 11:47 - Physical Exam Vitals and I&O: Vital Signs Temp 98.5 F 06/17/17 04:00 Pulse 88 06/17/17 07:40 Resp 18 06/17/17 07:40 BP 123/67 06/17/17 04:00 Pulse Ox 96 06/17/17 07:40 Intake & Output 06/16/17 06/17/17 06/17/17 18:59 06:59 18:59 Intake Total 1050 1150 Balance 1050 1150 Weight (lbs) 54.431 kg Intake: Intake, IV Amount 1050 1050 Cefepime 1 gm In Dextrose 50 50 5% 50 ml @ 100 mls/hr IV Q12HR [facility] Rx#:[id number] Dextrose 5% 1,000 ml @ 75 1000 1000 mls/hr IV .[id number] [facility] Rx#:[id number] Oral 100 Other: # Voids 3 # Bowel Movements 0 Stool Characteristics Soft Soft Active Medications: Current Medications Acetaminophen (Tylenol Extra Strength) 500 mg PO Q6HR PRN PRN Reason: Pain (Mild) Stop: 08/12/17 23:16 Last Admin: 06/17/17 03:23 Dose: 500 mg Al Hydrox/Mg Hydrox/Simethicone (Maalox) 30 ml PO Q6H PRN PRN Reason: Dyspepsia Stop: 08/12/17 23:17 Albuterol Sulfate (Albuterol 2.5mg/3ml Neb Ud) 2.5 mg HHN Q2HRT PRN PRN Reason: Shortness of Breath or Wheeze Stop: 08/12/17 23:17 Ascorbic Acid (Vitamin C) 500 mg PO DAILY [facility] Stop: 08/13/17 08:59 Last Admin: 06/17/17 08:57 Dose: 500 mg Guaifenesin (Robitussin) 200 mg PO Q4HR PRN PRN Reason: Cough or Congestion Stop: 08/12/17 23:17 Cefepime HCl 1 gm/ Dextrose 50 mls @ 100 mls/hr IV Q12HR [facility] Stop: 08/12/17 23:29 Last Admin: 06/17/17 08:57 Dose: 100 mls/hr Dextrose (D5w) 1,000 mls @ 75 mls/hr IV .[id number] [facility] Stop: 08/13/17 13:58 Last Admin: 06/17/17 06:53 Dose: 75 mls/hr Ipratropium [place] (Atrovent Neb 0.5mg/2.5ml) 0.5 mg IH Q2HRT PRN PRN Reason: Shortness of Breath or Wheeze Stop: 08/12/17 23:17 Lactulose (Cephulac) 15 gm PO BID [facility] Stop: 08/13/17 08:59 Last Admin: 06/17/17 08:57 Dose: 15 gm Mineral Oil (Mineral Oil 30 Ml) 30 ml PO BID PRN PRN Reason: Constipation Stop: 08/13/17 12:20 Last Admin: 06/16/17 06:36 Dose: 30 ml Miscellaneous (Probiotic Screen) 1 ea MC PRN PRN PRN Reason: PROTOCOL Stop: 08/15/17 16:47 Morphine Sulfate (Morphine) 2 mg IVP Q4HR PRN PRN Reason: Abdominal Pain Stop: 08/14/17 11:53 Ondansetron HCl (Zofran) 4 mg IV Q8H PRN PRN Reason: Nausea / Vomiting Stop: 08/12/17 23:17 Pantoprazole Sodium (Protonix) 40 mg IVP BIDAC [facility] Stop: 08/13/17 16:59 Last Admin: 06/17/17 06:51 Dose: 40 mg Tamsulosin HCl (Flomax) 0.4 mg PO HS [facility] Stop: 08/13/17 20:59 Last Admin: 06/16/17 21:31 Dose: 0.4 mg Zinc Sulfate (Zinc Sulfate) 220 mg PO DAILY [facility] Stop: 08/13/17 08:59 Last Admin: 06/17/17 08:57 Dose: 220 mg Zolpidem Tartrate (Ambien) 5 mg PO HS PRN PRN Reason: Insomnia Stop: 08/12/17 23:17 Last Admin: 06/16/17 21:31 Dose: 5 mg - Procedures Procedures: Procedures Procedure Code Date PRP I/TING INIT BLOCK >5 YR [id number] 06/13/17 REPAIR BILATERAL INGUINAL REGION, OPEN APPROACH [id number] 06/13/17 Nutritional Asmnt/Malnutr-PDOC - Dietary Evaluation Malnutrition Findings (Please click <Entered> for more info): Nutritional Asmnt/Malnutrition Start: 06/14/17 17: 27 Text: Status: Active Freq: Document 06/14/17 17:27 TAINA (Rec: 06/14/17 18:21 TAINA [email or web address]) Nutritional Asmnt/Malnutrition Patient General Information Nutritional Screening High Risk Consult Diagnosis PNA Pertinent Medical Hx/Surgical Hx pleural effusion, aortic atherosclerosis, pulmonary embolus, rhabdomyolysis, skin cancer, arthritis, dementia Subjective Information Consult received for carlos Tong . Pt seen lying in bed at time of visit, non verbal noted. Current Diet Order/ Nutrition Support no diet order Pertinent Medications vitamin c, D5w, protonix, zinc Pertinent Labs 2/2 Na 149, K 3.9, Cl 113, BUN 55, Cr 1.1, Glucose 110, Ca 8 .8, AST 40 Nutritional Hx/Data Height 1.57 m Height (Calculated Centimeters) 157.5 Current Weight (lbs) 54.431 kg Weight (Calculated Kilograms) 54.4 Weight (Calculated Grams) 09135.1 [place] Body Weight 110 % [place] Body Weight 109 Body Mass Index (BMI) 21.9 GI Symptoms GI Symptoms None Last BM 2/2 Difficult in: None Skin Integrity/Comment: laceration ulcer to right arm, reddeded to coccyx Estimated Nutritional Goals BEE in Kcals: Using Current wt Calories/Kcals/Kg 27-32 Kcals Calculated 7614-3322 Protein: Using Current wt Protein g/k-1.2 Protein Calculated 55-66 Fluid: ml 1472-1746ml (1ml/kcal) Nutritional Problem 2. Problem Problem inadequate energy intake Etiology no diet order assigned Signs/Symptoms: pt on NPO status 1. Problem Problem increased nutrition needs ( calorie and protein) Etiology increased metabolic demand and impaired skin integrity Signs/Symptoms: dx of PNA, laceration ulcer to right arm Malnutrition Alert Protein-Calorie Malnutrition N/A Is there a minimum of two criteria No selected? Query Text:Check all the applicable criteria. A minimum of two criteria are recommended for diagnosis of either severe or non-severe malnutrition. Intervention/Recommendation Comments 1. Monitor NPO status 2. Monitor wt, labs and skin integrity 3. F/U as high risk in 2-3 days, 2/4-2/5 Expected Outcomes/Goals Expected Outcomes/Goals 1. PO intake to meet at least 75% of nutritional needs. 2. Wt stability, skin to remain intact, labs to approach WNL.
--- NOTE | 2017-06-17 09:47 | Operative Report ---
DATE OF SURGERY: 06/15/2017 PREOPERATIVE DIAGNOSES: 1. Incarcerated left inguinal hernia. 2. Tender right inguinal hernia. 3. Fecal impaction. 4. Previous pulmonary embolus. POSTOPERATIVE DIAGNOSES: 1. Incarcerated left inguinal hernia. 2. Tender right inguinal hernia. 3. Fecal impaction. 4. Previous pulmonary embolus. OPERATION DONE: 1. Repair of incarcerated left inguinal hernia with a large PerFix plug. 2. Repair of right femoral hernia, primary suture. ESTIMATED BLOOD LOSS: 10 mL. SURGEON: Dr. Ragland. ANESTHESIA: Spinal. ANESTHESIOLOGIST: Dr. Orellana. INDICATIONS FOR SURGERY: The patient was admitted for abdominal pain. CT scan showing incarcerated left inguinal hernia. Tenderness in the right groin; however, was observed. Informed consent discussed with the son via telephone. OPERATIVE FINDINGS: A large indirect inguinal hernia on the left side repaired with the use of PerFix plug. On the right side, there was a femoral hernia located at the site of femoral vessels. This was primarily sutured. No incarceration was noted, however. DESCRIPTION OF PROCEDURE: The patient was given spinal anesthesia. The abdomen and genitalia prepped with Betadine and draped in appropriate manner. An incision was made in the left groin and the bleeders were coagulated. The cord was identified. A large indirect inguinal hernia with bowel was identified. This was reduced as there was no evidence of ischemic structure present. A large PerFix plug was sutured in place utilizing #0 Nylon in 4 quadrants. The incision was closed with running suture of 3-0 Vicryl subcutaneously and the skin was closed with subcuticular suture of 4-0 Vicryl. A same incision was made on the right groin and the search for a hernia was done. Finally, a femoral hernia was located. This was medial to the femoral vessels. No incarceration noted. The defect was closed with interrupted sutures of 2-0 nylon in a [id number] fashion. A maintenance of the femoral circulation was verified. The incision was closed with running suture of 3-0 Vicryl subcutaneously and the skin was closed with 4-0 Vicryl subcuticular. The patient tolerated the procedure well. JOB# [id number]
--- NOTE | 2017-06-17 13:00 | Internal Medicine Prog Note ---
Internal Medicine Subjective - Subjective Service Date: 06/17/17 Patient is:: awake, verbal Per staff patient has:: tolerating meds Internal Medicine Objective - Results Result Diagrams: 06/17/17 06:05 06/17/17 06:05 Recent Labs: Laboratory Last Values WBC 6.6 Th/cmm (4.8-10.8) 06/17/17 06:05 RBC 3.40 Mil/cmm (3.80-5.80) L 06/17/17 06:05 Hgb 9.5 gm/dL (12-16) L 06/17/17 06:05 Hct 28.5 % (41.0-60) L 06/17/17 06:05 MCV 83.8 fl (80-99) 06/17/17 06:05 MCH 27.8 pg (27.0-31.0) 06/17/17 06:05 MCHC Differential 33.2 pg (28.0-36.0) 06/17/17 06:05 RDW 14.2 % (11.5-20.0) 06/17/17 06:05 Plt Count 425 Th/cmm (150-400) H 06/17/17 06:05 MPV 5.8 fl 06/17/17 06:05 Neutrophils % 77.5 % (40.0-80.0) 06/17/17 06:05 Lymphocytes % 9.6 % (20.0-50.0) L 06/17/17 06:05 Monocytes % 8.8 % (2.0-10.0) 06/17/17 06:05 Eosinophils % 3.8 % (0.0-5.0) 06/17/17 06:05 Basophils % 0.3 % (0.0-2.0) 06/17/17 06:05 Sodium 132 mEq/L (136-145) L 06/17/17 06:05 Potassium 3.9 mEq/L (3.5-5.1) 06/17/17 06:05 Chloride 97 mEq/L (98-107) L 06/17/17 06:05 Carbon Dioxide 30.1 mEq/L (21.0-31.0) 06/17/17 06:05 Anion Gap 8.8 (7.0-16.0) 06/17/17 06:05 BUN 22 mg/dL (7-25) 06/17/17 06:05 Creatinine 0.8 mg/dL (0.7-1.3) 06/17/17 06:05 Est GFR ( Amer) TNP 06/17/17 06:05 Est GFR (Non-Af Amer) TNP 06/17/17 06:05 BUN/Creatinine Ratio 27.5 06/17/17 06:05 Glucose 109 mg/dL (70-105) H 06/17/17 06:05 POC Glucose 99 MG/DL (70 - 105) 06/15/17 11:00 Calcium 8.1 mg/dL (8.6-10.3) L 06/17/17 06:05 Total Bilirubin 0.5 mg/dL (0.3-1.0) 06/15/17 05:50 AST 34 U/L (13-39) 06/15/17 05:50 ALT 28 U/L (7-52) 06/15/17 05:50 Alkaline Phosphatase 74 U/L (34-104) 06/15/17 05:50 Ammonia 35 umol/L (16-53) 06/14/17 05:15 B-Natriuretic Peptide 182.0 pg/mL (5.0-100.0) H 06/14/17 05:15 Total Protein 6.5 gm/dL (6.0-8.3) 06/15/17 05:50 Albumin 2.9 gm/dL (4.2-5.5) L 06/15/17 05:50 Globulin 3.6 gm/dL 06/15/17 05:50 Albumin/Globulin Ratio 0.8 (1.0-1.8) L 06/15/17 05:50 Lipase 47 U/L (11-82) 06/13/17 19:51 TSH 0.71 uIU/ml (0.34-5.60) 06/14/17 05:15 Stool Occult Blood NEGATIVE (NEGATIVE) 06/16/17 11:47 - Physical Exam Vitals and I&O: Vital Signs Temp 96.7 F 06/17/17 08:00 Pulse 113 06/17/17 08:00 Resp 18 06/17/17 10:00 BP 128/71 06/17/17 08:00 Pulse Ox 100 06/17/17 08:00 Intake & Output 06/16/17 06/17/17 06/17/17 18:59 06:59 18:59 Intake Total 1050 1150 50 Balance 1050 1150 50 Weight (lbs) 120 lb Intake: Intake, IV Amount 1050 1050 50 Cefepime 1 gm In Dextrose 50 50 50 5% 50 ml @ 100 mls/hr IV Q12HR [facility] Rx#:[id number] Dextrose 5% 1,000 ml @ 75 1000 1000 mls/hr IV .[id number] [facility] Rx#:[id number] Oral 100 Other: # Voids 3 # Bowel Movements 0 Stool Characteristics Soft Soft Soft Active Medications: Current Medications Acetaminophen (Tylenol Extra Strength) 500 mg PO Q6HR PRN PRN Reason: Pain (Mild) Stop: 08/12/17 23:16 Last Admin: 06/17/17 03:23 Dose: 500 mg Al Hydrox/Mg Hydrox/Simethicone (Maalox) 30 ml PO Q6H PRN PRN Reason: Dyspepsia Stop: 08/12/17 23:17 Albuterol Sulfate (Albuterol 2.5mg/3ml Neb Ud) 2.5 mg HHN Q2HRT PRN PRN Reason: Shortness of Breath or Wheeze Stop: 08/12/17 23:17 Ascorbic Acid (Vitamin C) 500 mg PO DAILY [facility] Stop: 08/13/17 08:59 Last Admin: 06/17/17 08:57 Dose: 500 mg Guaifenesin (Robitussin) 200 mg PO Q4HR PRN PRN Reason: Cough or Congestion Stop: 08/12/17 23:17 Cefepime HCl 1 gm/ Dextrose 50 mls @ 100 mls/hr IV Q12HR [facility] Stop: 08/12/17 23:29 Last Infusion: 06/17/17 11:28 Dose: Infused Dextrose (D5w) 1,000 mls @ 75 mls/hr IV .[id number] [facility] Stop: 08/13/17 13:58 Last Admin: 06/17/17 06:53 Dose: 75 mls/hr Ipratropium [place] (Atrovent Neb 0.5mg/2.5ml) 0.5 mg IH Q2HRT PRN PRN Reason: Shortness of Breath or Wheeze Stop: 08/12/17 23:17 Lactulose (Cephulac) 15 gm PO BID [facility] Stop: 08/13/17 08:59 Last Admin: 06/17/17 08:57 Dose: 15 gm Mineral Oil (Mineral Oil 30 Ml) 30 ml PO BID PRN PRN Reason: Constipation Stop: 08/13/17 12:20 Last Admin: 06/16/17 06:36 Dose: 30 ml Miscellaneous (Probiotic Screen) 1 ea MC PRN PRN PRN Reason: PROTOCOL Stop: 08/15/17 16:47 Morphine Sulfate (Morphine) 2 mg IVP Q4HR PRN PRN Reason: Abdominal Pain Stop: 08/14/17 11:53 Ondansetron HCl (Zofran) 4 mg IV Q8H PRN PRN Reason: Nausea / Vomiting Stop: 08/12/17 23:17 Pantoprazole Sodium (Protonix) 40 mg IVP BIDAC [facility] Stop: 08/13/17 16:59 Last Admin: 06/17/17 06:51 Dose: 40 mg Tamsulosin HCl (Flomax) 0.4 mg PO HS [facility] Stop: 08/13/17 20:59 Last Admin: 06/16/17 21:31 Dose: 0.4 mg Zinc Sulfate (Zinc Sulfate) 220 mg PO DAILY [facility] Stop: 08/13/17 08:59 Last Admin: 06/17/17 08:57 Dose: 220 mg Zolpidem Tartrate (Ambien) 5 mg PO HS PRN PRN Reason: Insomnia Stop: 08/12/17 23:17 Last Admin: 06/16/17 21:31 Dose: 5 mg General: weak HEENT: NC/AT, PERRLA Neck: Supple Lungs: CTAB Cardiovascular: RRR Abdomen: soft, non-tender, non-distended Neurological: unable to follow command, bedbound - Procedures Procedures: Procedures Procedure Code Date PRP I/TING INIT BLOCK >5 YR 30311 06/13/17 REPAIR BILATERAL INGUINAL REGION, OPEN APPROACH [id number] 06/13/17 Internal Medicine Assmt/Plan - Assessment Assessment: left lower lobe pna severe distal fecal impaction with mass effect S/P large right renal cyst acute febrile illness hypernatremia acute renal insufficiency mild protein calorie malnutrition REPAIR OF INCARCERATED LEFT INGUINAL HERNIA AND REPAIR OF RIGHT FEMORAL HERNIA - Plan Plan: continue ivf for hydration cbc/bmp in am continue ivabx supplemental oxygen bronchodilators continue current orders Nutritional Asmnt/Malnutr-PDOC - Dietary Evaluation Malnutrition Findings (Please click <Entered> for more info): Nutritional Asmnt/Malnutrition Start: 06/14/17 17: 27 Text: Status: Active Freq: Document 06/14/17 17:27 WAYNEJAX (Rec: 06/14/17 18:21 LCJAX [email or web address]) Nutritional Asmnt/Malnutrition Patient General Information Nutritional Screening High Risk Consult Diagnosis PNA Pertinent Medical Hx/Surgical Hx pleural effusion, aortic atherosclerosis, pulmonary embolus, rhabdomyolysis, skin cancer, arthritis, dementia Subjective Information Consult received for carlos Tong . Pt seen lying in bed at time of visit, non verbal noted. Current Diet Order/ Nutrition Support no diet order Pertinent Medications vitamin c, D5w, protonix, zinc Pertinent Labs 2/2 Na 149, K 3.9, Cl 113, BUN 55, Cr 1.1, Glucose 110, Ca 8 .8, AST 40 Nutritional Hx/Data Height 5 ft 2 in Height (Calculated Centimeters) 157.5 Current Weight (lbs) 120 lb Weight (Calculated Kilograms) 54.4 Weight (Calculated Grams) 95761.1 [place] Body Weight 110 % [place] Body Weight 109 Body Mass Index (BMI) 21.9 GI Symptoms GI Symptoms None Last BM 2/2 Difficult in: None Skin Integrity/Comment: laceration ulcer to right arm, reddeded to coccyx Estimated Nutritional Goals BEE in Kcals: Using Current wt Calories/Kcals/Kg 27-32 Kcals Calculated 6480-7478 Protein: Using Current wt Protein g/k-1.2 Protein Calculated 55-66 Fluid: ml 1472-1746ml (1ml/kcal) Nutritional Problem 2. Problem Problem inadequate energy intake Etiology no diet order assigned Signs/Symptoms: pt on NPO status 1. Problem Problem increased nutrition needs ( calorie and protein) Etiology increased metabolic demand and impaired skin integrity Signs/Symptoms: dx of PNA, laceration ulcer to right arm Malnutrition Alert Protein-Calorie Malnutrition N/A Is there a minimum of two criteria No selected? Query Text:Check all the applicable criteria. A minimum of two criteria are recommended for diagnosis of either severe or non-severe malnutrition. Intervention/Recommendation Comments 1. Monitor NPO status 2. Monitor wt, labs and skin integrity 3. F/U as high risk in 2-3 days, 06/16-2/5 Expected Outcomes/Goals Expected Outcomes/Goals 1. PO intake to meet at least 75% of nutritional needs. 2. Wt stability, skin to remain intact, labs to approach WNL.
[2017-06-18 06:09] LABS: FERRITIN 786 ng/mL (30-400); FOLIC ACID 5.6 ng/mL (>3.0); IRON LC 22 ug/dL (38-169); TIBC (LC) 239 ug/dL (250-450); UIBC 217 ug/dL (111-343)
--- NOTE | 2017-08-01 20:14 | Discharge Summary ---
DATE OF DISCHARGE: 06/17/2017 DICTATED FOR: Kurtis Valderrama DO. DISCHARGE DIAGNOSES: Left lower lobe pneumonia, severe distal fecal impaction with mass effect, status post very large renal cyst, acute febrile illness, acute renal insufficiency, mild protein calorie malnutrition, status post repair of incarcerated left inguinal hernia, and repair of the right femoral hernia. HISTORY OF PRESENT ILLNESS: This is an 87-year-old male who is a [facility] resident of [place], was brought to [facility] due to abdominal pain as well as fever. The patient did not have any nausea, vomiting, or any diarrhea. For further management, the patient was admitted to the telemetry unit. PHYSICAL EXAMINATION: GENERAL: Elderly male, awake, alert, in no apparent distress. VITAL SIGNS: Stable. HEENT: Normocephalic, atraumatic. NECK: Supple. No mass. LUNGS: Clear bilaterally. HEART: Regular rhythm. ABDOMEN: Soft and nontender. HOSPITAL COURSE: During the hospital stay, the patient was admitted to the telemetry unit. The patient had a CT of the abdomen and pelvis done. Impression was large left inguinal hernia containing multiple bowel loops, early obstructive process cannot be excluded. Severe distal fecal impaction with mass effect upon prostate gland, generalized gaseous distended loops of the bowel are noted with copious stool, distended stomach, mild haziness of the mesenteric fat planes. The patient had a GI and surgical consultation. The patient was kept on IV fluids for hydration as well as IV antibiotics Maxipime. On 06/17/2017, the patient had a repair of incarcerated left inguinal hernia with large PerFix plug as well as repair of the right femoral hernia primary suture. The patient tolerated the procedure well. Due to patient's need of IV antibiotics, it was then decided for patient to be discharged to [facility]. CONDITION UPON DISCHARGE: Fair. DISPOSITION: [facility]. JOB# [id number]
== END 2017-06-17 19:28 | DRG 350 ==
LOC: ER 19:24 → TELE 23:20
PROVIDERS: ADMIT Internal Medicine; ATTEND Internal Medicine
PROC: 0YU60JZ Supplement Left Inguinal Region with Synthetic Substitute, Open Approach (ICD-10-PCS; principal; 2017-06-15)
PROC: 0YQ70ZZ Repair Right Femoral Region, Open Approach (ICD-10-PCS; 2017-06-15)
DX: K40.30 Unilateral inguinal hernia, with obstruction, without gangrene, not specified as recurrent (principal); J18.1 Lobar pneumonia, unspecified organism; J90 Pleural effusion, not elsewhere classified; D64.9 Anemia, unspecified; E86.0 Dehydration; E87.0 Hyperosmolality and hypernatremia; E44.1 Mild protein-calorie malnutrition; K62.5 Hemorrhage of anus and rectum; K56.41 Fecal impaction; N28.1 Cyst of kidney, acquired; M19.90 Unspecified osteoarthritis, unspecified site; Z66 Do not resuscitate; I70.0 Atherosclerosis of aorta; F03.90 Unspecified dementia, unspecified severity, without behavioral disturbance, psychotic disturbance, mood disturbance, and anxiety; N28.9 Disorder of kidney and ureter, unspecified; E78.5 Hyperlipidemia, unspecified; K41.90 Unilateral femoral hernia, without obstruction or gangrene, not specified as recurrent; Z85.828 Personal history of other malignant neoplasm of skin; Z88.5 Allergy status to narcotic agent; Z86.711 Personal history of pulmonary embolism; Z68.21 Body mass index [BMI] 21.0-21.9, adult
CPT/HCPCS: 36415-UA; 71045-TC; 76770-TC; 80048-TC; 80053-TC; 82140-TC; 82270-TC; 82607-90; 82728-90; 82746-90; 82948-90; 83540-90; 83550-90; 83690-TC; 83880-TC; 84443-TC; 85007-TC; 85025-TC; 85027-TC; 93005; 94760; C9113; J0692; J0696; J1644; J2250; J2370; J2405; J3010; J3370; J7030; J7070; X6024; Z7610

== ENCOUNTER 2018-04-11 14:38 | Inpatient (IN) | payer MEDICARE, MEDICAID ==
[2018-04-11 15:35] LABS: % BASOPHILS 0.7 % (0.0-2.0); % EOSINOPHILS 2.5 % (0.0-5.0); % LYMPHOCYTES 9.1 % (20.0-50.0); % NEUTROPHILS 76.7 % (40.0-80.0); BASOPHILE ABSOLUTE 0.1 Th/cumm (0-0.2); EOSINOPHILE ABSOLUTE 0.2 Th/cmm (0.1-0.4); HEMATOCRIT 27.1 % (41.0-60); LYMPHOCYTE ABSOLUTE 0.7 Th/cmm (1.5-3.0); MEAN CELL VOLUME 80.4 fl (80-99); MEAN CORPUSCULAR HEMOGLOBIN 26.6 pg (27.0-31.0); MEAN PLATELET VOLUME 5.9 fl; MONOCYTE ABSOLUTE 0.8 Th/cmm (0.3-1.0); NEUTROPHILE ABSOLUTE 5.5 Th/cmm (1.8-8.0); PLATELET COUNT 398 Th/cmm (150-400); RED BLOOD COUNT 3.37 Mil/cmm (3.80-5.80); RED CELL DISTRIBUTION WIDTH 16.8 % (11.5-20.0); WHITE BLOOD COUNT 7.3 Th/cmm (4.8-10.8)
[2018-04-11] MEDS ORDERED: Lactated Ringer 1,000 ML IV ONE (15:44)
[2018-04-11 15:57] LABS: ALB/GLOB RATIO 1.1 (1.0-1.8); ALBUMIN 3.2 gm/dL (4.2-5.5); ALKALINE PHOSPHATASE 55 U/L (34-104); ANION GAP 10.4 (7.0-16.0); BILIRUBIN,TOTAL 0.3 mg/dL (0.3-1.0); BUN - UREA NITROGEN 27 mg/dL (7-25); CALCIUM SERUM 8.8 mg/dL (8.6-10.3); CARBON DIOXIDE 31.4 mEq/L (21.0-31.0); CHLORIDE 100 mEq/L (98-107); CREATININE - SERUM 0.9 mg/dL (0.7-1.3); GLUCOSE 104 mg/dL (70-105); PHOSPHOROUS 3.4 mg/dL (2.5-5.0); POTASSIUM SERUM 3.8 mEq/L (3.5-5.1); SGOT 15 U/L (13-39); SGPT/ALT 14 U/L (7-52); SODIUM SERUM 138 mEq/L (136-145); TOTAL PROTEIN,SERUM 6.1 gm/dL (6.0-8.3)
--- NOTE | 2018-04-11 17:54 | ED Physician Chart ---
ED Chief Complaint/HPI - Patient Information Date Seen:: 04/11/18 Time Seen:: 15:24 Chief Complaint:: cough History of Present Illness:: cough Allergies:: Allergies Allergy/AdvReac Type Severity Reaction Status Date / Time morphine Allergy Verified 06/13/17 21:02 Review:: Nurse's Note Reviewed, Transfer documents Reviewed ED Review of Systems - Review of Systems General/Constitutional: No fever, No chills, No weight loss, No weakness, No diaphoresis, No edema, No loss of appetite Skin: No skin lesions, No rash, No bruising Head: No headache, No light-headedness Eyes: No loss of vision, No pain, No diplopia ENT: No earache, No nasal drainage, No sore throat, No tinnitus Neck: No neck pain, No swelling, No thyromegaly, No stiffness, No mass noted Cardio Vascular: No chest pain, No palpitations, No PND, No orthopnea, No edema Pulmonary: No SOB, Cough, No sputum, No wheezing GI: No nausea, No vomiting, No diarrhea, No pain, No melena, No hematochezia, No constipation, No hematemesis G/U: No dysuria, No frequency, No hematuria Musculoskeletal: No bone or joint pain, No back pain, No muscle pain Endocrine: No polyuria, No polydipsia Psychiatric: No prior psych history, No depression, No anxiety, No suicidal ideation Hematopoietic: No bruising, No lymphadenopathy Allergic/Immuno: No urticaria, No angioedema Neurological: No syncope, No focal symptoms, No weakness, No paresthesia, No headache, No seizure, No dizziness, No confusion, No vertigo ED Past Medical History - Past Medical History Obtainable: No Past Medical History: HTN, CAD, CHF, PUD/GERD, Arthritis, Dementia, Other ( rhabdomyolysis; anemia) Family Medical History - Family Member Mother History Unknown: Yes ED Physical Exam - Physical Examination General/Constitutional: Awake, Well-developed, well-nourished, Alert, No distress, GCS 15, Non-toxic appearing, Ambulatory Head: Atraumatic Eyes: Lids, conjuctiva normal, PERRL, EOMI Skin: Nl inspection, No rash, No skin lesions, No ecchymosis, Well hydrated, No lymphadenopathy ENMT: External ears, nose nl, Nasal exam nl, Lips, teeth, gums nl Neck: Nontender, Full ROM w/o pain, No JVD, No nuchal rigidity, No bruit, No mass, No stridor Respiratory: Nl effort/Exclusion Other Respiratory comments:: decreased breath sounds at both lung bases. Cardio Vascular: RRR, No murmur, gallop, rubs, NL S1 S2 GI: No tenderness/rebounding/guarding, No organomegaly, No hernia, Normal BS's, Nondistended, No mass/bruits, No McBurney tenderness : No CVA tenderness Extremities: No tenderness or effusion, Full ROM, normal strength in all extremities, No edema, Normal digits & nails Neuro/Psych: Alert/oriented, Normal sensory exam, Normal motor strength, Judgement/insight normal, Normal gait, No focal deficits Other Neuro/Psych comments:: irritated when he is woken up. Misc: Normal back, No paraspinal tenderness ED Labs/Radiology/EKG Results - Lab Results Results: Laboratory Tests 04/11/18 04/11/18 04/11/18 15:14 15:14 15:14 WBC 7.3 RBC 3.37 L Hgb 9.0 L Hct 27.1 L MCV 80.4 MCH 26.6 L MCHC Differential 33.0 RDW 16.8 Plt Count 398 MPV 5.9 Neutrophils % 76.7 Lymphocytes % 9.1 L Monocytes % 11.0 H Eosinophils % 2.5 Basophils % 0.7 Sodium 138 Potassium 3.8 Chloride 100 Carbon Dioxide 31.4 H Anion Gap 10.4 BUN 27 H Creatinine 0.9 Est GFR ( Amer) TNP Est GFR (Non-Af Amer) TNP BUN/Creatinine Ratio 30.0 Glucose 104 Whole Bld Lactic Acid 1.29 Calcium 8.8 Phosphorus 3.4 Magnesium 2.0 Total Bilirubin 0.3 AST 15 ALT 14 Alkaline Phosphatase 55 Total Protein 6.1 Albumin 3.2 L Globulin 2.9 Albumin/Globulin Ratio 1.1 ED Assessment - Assessment General Assessment: spoke to Dr. Valderrama who will be admitting the patient to a med/surg bed. CXR per my reading: bilateral lower lobe pneumonia more on the left than on the right. Possible left pleural effusion. ED Septic Shock - . Is Septic Shock (SBP<90, OR Lactate>4 mmol\L) present?: No ED Reassessment (Disposition) - Reassessment Reassessment Condition:: Unchanged - Diagnosis Diagnosis:: Bilateral lower lobe pneumonia Left pleural effusion h/o CHF Arthitis CAD h/o rhabdomyolyisis HTN GERD Anemia Dementia - Patient Disposition Discharge/Transfer:: Acute Care w/in this hosp Admitted to:: Med/Surg Condition at Disposition:: Stable, Unchanged
[2018-04-11 18:54] VITALS: BP 124/84
[2018-04-11] MEDS ORDERED: Acetaminophen 500 MG TAB PO PRN (19:05)
[2018-04-11] MEDS ORDERED: guaiFENesin 200 MG/10 ML UDC PO PRN (19:09)
[2018-04-11] MEDS: D5-0.45NS 1,000 ML IV SCH (21:18)
[2018-04-12 06:59] LABS: % BASOPHILS 0.3 % (0.0-2.0); % EOSINOPHILS 3.8 % (0.0-5.0); % LYMPHOCYTES 11.1 % (20.0-50.0); % MONOCYTES 11.4 % (2.0-10.0); % NEUTROPHILS 73.4 % (40.0-80.0); EOSINOPHILE ABSOLUTE 0.3 Th/cmm (0.1-0.4); HEMOGLOBIN 8.8 gm/dL (12-16); LYMPHOCYTE ABSOLUTE 0.7 Th/cmm (1.5-3.0); MEAN CELL VOLUME 79.7 fl (80-99); MEAN CORPUSCULAR HGB CONC 33.9 pg (28.0-36.0); MEAN PLATELET VOLUME 5.9 fl; MONOCYTE ABSOLUTE 0.8 Th/cmm (0.3-1.0); NEUTROPHILE ABSOLUTE 4.9 Th/cmm (1.8-8.0); PLATELET COUNT 359 Th/cmm (150-400); RED BLOOD COUNT 3.26 Mil/cmm (3.80-5.80); RED CELL DISTRIBUTION WIDTH 16.6 % (11.5-20.0); WHITE BLOOD COUNT 6.7 Th/cmm (4.8-10.8)
[2018-04-12] MEDS: Albuterol Nebulizer 2.5mg/3mL HHN SCH ×4 (07:32→19:28)
[2018-04-12] MEDS: Ipratropium Neb 0.5 mg/2.5 mL UD HHN SCH ×4 (07:32→19:28)
[2018-04-12] MEDS: Dabigatran Mesylate 75 mg Cap PO SCH ×2 (08:29→17:48)
[2018-04-12] MEDS: Multivitamin w/ Minerals Tab PO SCH (08:29)
--- NOTE | 2018-04-12 08:40 | Diagnostic Imaging Report ---
CHEST X-RAY: AP view INDICATION: Cough COMPARISON: 06/15/2017 FINDINGS: Multiple old bilateral rib fractures are again noted. Persistent left small to moderate pleural effusion is noted. Cardiomegaly is noted with atherosclerosis. Degenerative changes of the spine are noted. Gas-distended stomach or bowel is seen along the upper abdomen. IMPRESSION: Persistent small to moderate left pleural effusion which appears chronic when compared to prior exam. Pneumonia of the left base cannot be excluded. Cardiomegaly and atherosclerotic vascular disease. Multiple old bilateral rib fractures. No evidence of pneumothorax.
[2018-04-12] MEDS ORDERED: Non-Formulary Item 1 EA (Amino Acids/Protein Hydrolys [Pro-Stat Sugar Free Liquid] 30 ML) PO SCH (09:00)
[2018-04-12] MEDS ORDERED: Non-Formulary Item 1 EA (Arginine/Ascorbate Sod/Vite Ac [Arginaid Powder] 1 EACH) PO SCH (09:00)
[2018-04-12] MEDS: D5-0.45NS 1,000 ML IV SCH ×2 (10:42→23:18)
[2018-04-12 11:35] LABS: URINE SOURCE RANDOM
[2018-04-12 11:37] LABS: URINE BILIRUBIN NEGATIVE (NEGATIVE); URINE BLOOD NEGATIVE (NEGATIVE); URINE GLUCOSE (UA) NEGATIVE (NEGATIVE); URINE KETONE NEGATIVE (NEGATIVE); URINE LEUKOCYTE ESTERASE NEGATIVE (NEGATIVE); URINE NITRATE NEGATIVE (NEGATIVE); URINE PROTEIN NEGATIVE (NEGATIVE); URINE UROBILINOGEN 0.2 E.U./dL (0.2 - 1.0)
[2018-04-12 11:41] LABS: URINE CLARITY CLEAR (CLEAR); URINE COLOR YELLOW
[2018-04-12 11:42] LABS: URINE MICROSCOPIC INDICATED? NO
[2018-04-12 11:56] LABS: AMPHETAMINE URINE NEGATIVE (NEGATIVE); BARBITURATES URINE NEGATIVE (NEGATIVE); BENZODIAZEPINES QUAL URINE NEGATIVE (NEGATIVE); CANNABINOID THC NEGATIVE (NEGATIVE); COCAINE METABOLITE QUAL URINE NEGATIVE (NEGATIVE); METHADONE URINE NEGATIVE (NEGATIVE); METHAMPHETAMINES QUAL URINE NEGATIVE (NEGATIVE); OPIATES (MORPHINE) QUAL. URINE NEGATIVE (NEGATIVE); PHENCYCLIDINE (PCP) URINE NEGATIVE (NEGATIVE); TRICYCLICS (TCA) QUAL. URINE NEGATIVE (NEGATIVE)
--- NOTE | 2018-04-12 14:35 | Internal Medicine Prog Note ---
Internal Medicine Subjective - Subjective Service Date: 04/12/18 ([id number] [facility] dictated) Internal Medicine Objective - Results Result Diagrams: 04/12/18 05:30 04/11/18 15:14 Recent Labs: Laboratory Last Values WBC 6.7 Th/cmm (4.8-10.8) 04/12/18 05:30 RBC 3.26 Mil/cmm (3.80-5.80) L 04/12/18 05:30 Hgb 8.8 gm/dL (12-16) L 04/12/18 05:30 Hct 26.0 % (41.0-60) L 04/12/18 05:30 MCV 79.7 fl (80-99) L 04/12/18 05:30 MCH 27.0 pg (27.0-31.0) 04/12/18 05:30 MCHC Differential 33.9 pg (28.0-36.0) 04/12/18 05:30 RDW 16.6 % (11.5-20.0) 04/12/18 05:30 Plt Count 359 Th/cmm (150-400) 04/12/18 05:30 MPV 5.9 fl 04/12/18 05:30 Neutrophils % 73.4 % (40.0-80.0) 04/12/18 05:30 Lymphocytes % 11.1 % (20.0-50.0) L 04/12/18 05:30 Monocytes % 11.4 % (2.0-10.0) H 04/12/18 05:30 Eosinophils % 3.8 % (0.0-5.0) 04/12/18 05:30 Basophils % 0.3 % (0.0-2.0) 04/12/18 05:30 Sodium 138 mEq/L (136-145) 04/11/18 15:14 Potassium 3.8 mEq/L (3.5-5.1) 04/11/18 15:14 Chloride 100 mEq/L (98-107) 04/11/18 15:14 Carbon Dioxide 31.4 mEq/L (21.0-31.0) H 04/11/18 15:14 Anion Gap 10.4 (7.0-16.0) 04/11/18 15:14 BUN 27 mg/dL (7-25) H 04/11/18 15:14 Creatinine 0.9 mg/dL (0.7-1.3) 04/11/18 15:14 Est GFR ( Amer) TNP 04/11/18 15:14 Est GFR (Non-Af Amer) TNP 04/11/18 15:14 BUN/Creatinine Ratio 30.0 04/11/18 15:14 Glucose 104 mg/dL (70-105) 04/11/18 15:14 Whole Bld Lactic Acid 1.29 mmol/L (0.60-1.99) 04/11/18 15:14 Calcium 8.8 mg/dL (8.6-10.3) 04/11/18 15:14 Phosphorus 3.4 mg/dL (2.5-5.0) 04/11/18 15:14 Magnesium 2.0 mg/dL (1.9-2.7) 04/11/18 15:14 Total Bilirubin 0.3 mg/dL (0.3-1.0) 04/11/18 15:14 AST 15 U/L (13-39) 04/11/18 15:14 ALT 14 U/L (7-52) 04/11/18 15:14 Alkaline Phosphatase 55 U/L (34-104) 04/11/18 15:14 Ammonia 39 umol/L (16-53) 04/12/18 05:30 Creatine Kinase 26 U/L (30-223) L 04/11/18 15:14 Total Protein 6.1 gm/dL (6.0-8.3) 04/11/18 15:14 Albumin 3.2 gm/dL (4.2-5.5) L 04/11/18 15:14 Globulin 2.9 gm/dL 04/11/18 15:14 Albumin/Globulin Ratio 1.1 (1.0-1.8) 04/11/18 15:14 TSH 1.07 uIU/ml (0.34-5.60) 04/11/18 15:14 Urine Source RANDOM 04/12/18 11:30 Urine Color YELLOW 04/12/18 11:30 Urine Clarity CLEAR (CLEAR) 04/12/18 11:30 Urine pH 7.0 (4.6 - 8.0) 04/12/18 11:30 Ur Specific [place] 1.015 (1.005-1.030) 04/12/18 11:30 Urine Protein NEGATIVE mg/dL (NEGATIVE) 04/12/18 11:30 Urine Glucose (UA) NEGATIVE mg/dL (NEGATIVE) 04/12/18 11:30 Urine Ketones NEGATIVE mg/dL (NEGATIVE) 04/12/18 11:30 Urine Blood NEGATIVE (NEGATIVE) 04/12/18 11:30 Urine Nitrate NEGATIVE (NEGATIVE) 04/12/18 11:30 Urine Bilirubin NEGATIVE (NEGATIVE) 04/12/18 11:30 Urine Urobilinogen 0.2 E.U./dL (0.2 - 1.0) 04/12/18 11:30 Ur Leukocyte Esterase NEGATIVE (NEGATIVE) 04/12/18 11:30 Urine Opiates Screen NEGATIVE (NEGATIVE) 04/12/18 11:30 Urine Methadone Screen NEGATIVE (NEGATIVE) 04/12/18 11:30 Ur Barbiturates Screen NEGATIVE (NEGATIVE) 04/12/18 11:30 Ur Tricyclics Screen NEGATIVE (NEGATIVE) 04/12/18 11:30 Ur Phencyclidine Scrn NEGATIVE (NEGATIVE) 04/12/18 11:30 Amphetamines Screen NEGATIVE (NEGATIVE) 04/12/18 11:30 U Methamphetamines Scrn NEGATIVE (NEGATIVE) 04/12/18 11:30 U Benzodiazepines Scrn NEGATIVE (NEGATIVE) 04/12/18 11:30 U Cocaine Metab Screen NEGATIVE (NEGATIVE) 04/12/18 11:30 U Cannabinoids Screen NEGATIVE (NEGATIVE) 04/12/18 11:30 - Physical Exam Vitals and I&O: Vital Signs Temp 97.1 F 04/12/18 11:41 Pulse 72 04/12/18 11:41 Resp 18 04/12/18 11:41 BP 138/55 04/12/18 11:41 Pulse Ox 100 04/12/18 11:41 Intake & Output 04/11/18 04/12/18 04/12/18 18:59 06:59 18:59 Intake Total 50 1000 Output Total 1 Balance 49 1000 Weight (lbs) 145 lb 152 lb 1.6 oz Intake: Intake, IV Amount 50 1000 Cefepime 1 gm In Dextrose 50 5% 50 ml @ 100 mls/hr IV Q12HR [facility] Rx#:[id number] D5-0.45NS 1,000 ml @ 80 1000 mls/hr IV .[id number] [facility] Rx #:[id number] Output: Stool 1 Other: # Voids 1 Weight Source Bedscale Bedscale Active Medications: Current Medications Acetaminophen (Tylenol Extra Strength) 500 mg PO Q6HR PRN PRN Reason: Pain (Mild) 1-3 Stop: 06/10/18 19:04 Albuterol Sulfate (Albuterol 2.5mg/3ml Neb Ud) 2.5 mg N QIDRT [facility] Stop: 06/11/18 06:59 Last Admin: 04/12/18 11:24 Dose: 2.5 mg Ascorbic Acid (Vitamin C) 500 mg PO DAILY [facility] Stop: 06/11/18 08:59 Last Admin: 04/12/18 08:29 Dose: 500 mg Guaifenesin (Robitussin) 200 mg PO Q4HR PRN PRN Reason: Cough or Congestion Stop: 06/10/18 19:08 Aztreonam 1 gm/ Dextrose 50 mls @ 100 mls/hr IV Q12H [facility] Stop: 06/10/18 02:59 Last Admin: 04/12/18 02:43 Dose: 100 mls/hr Cefepime HCl 1 gm/ Dextrose 50 mls @ 100 mls/hr IV Q12HR [facility] Stop: 06/10/18 20:59 Last Admin: 04/12/18 08:29 Dose: 100 mls/hr Dextrose/Sodium Chloride (D5-0.45ns) 1,000 mls @ 80 mls/hr IV .[id number] [facility] Stop: 06/10/18 19:14 Last Admin: 04/12/18 10:42 Dose: 80 mls/hr Ipratropium [place] (Atrovent Neb 0.5mg/2.5ml) 0.5 mg N QIDRT [facility] Stop: 06/11/18 06:59 Last Admin: 04/12/18 11:24 Dose: 0.5 mg Ondansetron HCl (Zofran) 4 mg IV Q8H PRN PRN Reason: Nausea / Vomiting Stop: 06/10/18 19:08 Tamsulosin HCl (Flomax) 0.4 mg PO HS [facility] Stop: 06/10/18 20:59 Last Admin: 04/11/18 21:53 Dose: Not Given Zinc Sulfate (Zinc Sulfate) 220 mg PO DAILY [facility] Stop: 06/11/18 08:59 Last Admin: 04/12/18 08:29 Dose: 220 mg - Procedures Procedures: Procedures Procedure Code Date PRP I/TING INIT BLOCK >5 YR 25249 06/13/17 REPAIR RIGHT FEMORAL REGION, OPEN APPROACH [id number] 06/13/17 SUPPLEMENT L INGUINAL REGION WITH SYNTH SUB, OPEN APPROACH [id number] 06/13/17
--- NOTE | 2018-04-12 16:00 | History & Physical ---
ADMIT DATE: 04/12/2018 CHIEF COMPLAINT: Cough and congestion. HISTORY OF PRESENT ILLNESS: This is an 88-year-old male who is a longterm resident, admitted to the med/surg unit due to 1-day history of cough. No reports of any fevers at the SNF. For further management, the patient is now admitted. PAST MEDICAL HISTORY: Hypertension, CAD, CHF, GERD, arthritis, dementia, rhabdomyolysis, anemia. SOCIAL HISTORY: The patient is a longterm resident, requiring 24-hour nursing care. FAMILY HISTORY: Noncontributory. REVIEW OF SYSTEMS: Unable to obtain at this time. PHYSICAL EXAMINATION: GENERAL: Elderly male, awake, irritated, in no apparent distress. VITAL SIGNS: Temperature 97.1, heart rate 72, blood pressure 138/55, respiration 18, O2 100%. HEENT: Head; normocephalic and atraumatic. NECK: Supple. No mass. LUNGS: Few rhonchi. CARDIOVASCULAR: Regular rate and rhythm. ABDOMEN: Soft, nontender. LABORATORY RESULTS: WBC 6.7, H and H 8.8 and 26.0 and platelet of 359. Sodium 138, potassium 3.8, chloride 100, BUN 27 and creatinine 0.9. DIAGNOSTICS: The patient had a chest x-ray done and impression is cardiomegaly, atherosclerotic vascular disease, multiple old bilateral rib fractures. No evidence of pneumothorax. Persistent [id number] left pleural effusion, which appears chronic when compared to prior examination. Pneumonia of the left lung base cannot be excluded. ASSESSMENT: Pneumonia, acute respiratory failure, methicillin-resistant staphylococcus aureus nares, hypertension, coronary artery disease, history of congestive heart failure, gastroesophageal reflux disease and dementia. PLAN: Keep the patient on IV antibiotics of Maxipime. Will get sputum culture. Collect stool for occult blood. Keep patient on gentle IV fluids for hydration. We will monitor the patient's electrolytes. Follow up CBC and BMP for tomorrow morning. Will add Bactroban for MRSA nares. Will continue to follow this patient. [facility]# [id number]
--- NOTE | 2018-04-12 16:10 | Consultation ---
DATE OF CONSULTATION: 04/12/2018 REQUESTING PHYSICIAN: Dr. Valderrama. REASON FOR CONSULTATION: Depression and agitation. HISTORY OF PRESENT ILLNESS: This patient is an 88-year-old resident of [facility] in [place]. Information obtained by directly interviewing the patient as well as reviewing the admission papers. The patient has been admitted to the unit for acute abdominal pain and fever and the patient is noted to be depressed and also is getting agitated and a psychiatric consultation is called to address the issue. PAST PSYCHIATRIC HISTORY: The patient is a poor historian and is not able to provide much of any information. MEDICAL HISTORY: The patient has a history of pleural effusion, aortic atherosclerosis, history of pulmonary embolism, and rhabdomyolysis. SOCIAL HISTORY: The patient is a resident of the halfway facility. SUBSTANCE ABUSE HISTORY: None. MENTAL STATUS EXAMINATION: The patient is an 88-year-old, looking his stated age, superficially cooperative. Eye contact is poor. Mood is noted to be irritable. Affect is constricted. Insight and judgment at this time are noted to be impaired. Impulse control seems to be limited. The patient is getting easily frustrated. The patient is very confused and getting easily agitated, possibly because of the underlying medical issues. The patient is currently being worked up for possible pneumonia. The patient's short and fci are noted to be impaired. The patient's attention span and concentration are also noted very poor, but the patient is very confused and could not figure it out that he is in the hospital. DIAGNOSTIC IMPRESSION: AXIS I: A. 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 IMMEDIATE TREATMENT PLAN: The patient is going to be continued with the supportive therapy and the patient is going to be closely monitored and encouraged to verbalize the concerns. Once stabilized, the patient is going to be discharged. I have not started the patient on any antipsychotic medications at this time because the patient is very drowsy and sedated. Thank you, Dr. Valderrama for allowing me to participate in the care of the patient. JOB# [id number]
[2018-04-13 05:30] LABS: HEMATOCRIT 25.8 % (41.0-60); HEMOGLOBIN 8.4 gm/dL (12-16); RED BLOOD COUNT 3.23 Mil/cmm (3.80-5.80); WHITE BLOOD COUNT 7.7 Th/cmm (4.8-10.8)
[2018-04-13 05:31] LABS: % EOSINOPHILS 0.2 % (0.0-5.0); % LYMPHOCYTES 7.9 % (20.0-50.0); % MONOCYTES 9.8 % (2.0-10.0); % NEUTROPHILS 79.6 % (40.0-80.0); MEAN CORPUSCULAR HEMOGLOBIN 26.1 pg (27.0-31.0); MEAN CORPUSCULAR HGB CONC 32.6 pg (28.0-36.0); MEAN PLATELET VOLUME 5.7 fl; PLATELET COUNT 387 Th/cmm (150-400); RED CELL DISTRIBUTION WIDTH 16.6 % (11.5-20.0)
[2018-04-13] MEDS: Albuterol Nebulizer 2.5mg/3mL HHN SCH ×4 (06:44→18:38)
[2018-04-13] MEDS: Ipratropium Neb 0.5 mg/2.5 mL UD HHN SCH ×4 (06:44→18:38)
[2018-04-13 08:05] LABS: IRON LC 17 ug/dL (38-169); TIBC (LC) 258 ug/dL (250-450); UIBC 241 ug/dL (111-343)
[2018-04-13 08:27] LABS: ANION GAP 9.9 (7.0-16.0); BUN - UREA NITROGEN 17 mg/dL (7-25); CALCIUM SERUM 8.4 mg/dL (8.6-10.3); CARBON DIOXIDE 28.6 mEq/L (21.0-31.0); CHLORIDE 98 mEq/L (98-107); CREATININE - SERUM 0.7 mg/dL (0.7-1.3); GLUCOSE 115 mg/dL (70-105); POTASSIUM SERUM 3.5 mEq/L (3.5-5.1); SODIUM SERUM 133 mEq/L (136-145)
[2018-04-13] MEDS: Dabigatran Mesylate 75 mg Cap PO SCH ×2 (08:29→16:05)
[2018-04-13] MEDS: Multivitamin w/ Minerals Tab PO SCH (08:29)
--- NOTE | 2018-04-13 11:31 | Internal Medicine Prog Note ---
Internal Medicine Subjective - Subjective Service Date: 04/13/18 (episode of coffee ground emesis x1) Patient seen and examined:: with staff Patient is:: awake, verbal Patient Complaints of:: vomitting Per staff patient has:: tolerating meds Internal Medicine Objective - Results Result Diagrams: 04/13/18 04:50 04/13/18 04:50 Recent Labs: Laboratory Last Values WBC 7.7 Th/cmm (4.8-10.8) 04/13/18 04:50 RBC 3.23 Mil/cmm (3.80-5.80) L 04/13/18 04:50 Hgb 8.4 gm/dL (12-16) L 04/13/18 04:50 Hct 25.8 % (41.0-60) L 04/13/18 04:50 MCV 80.0 fl (80-99) 04/13/18 04:50 MCH 26.1 pg (27.0-31.0) L 04/13/18 04:50 MCHC Differential 32.6 pg (28.0-36.0) 04/13/18 04:50 RDW 16.6 % (11.5-20.0) 04/13/18 04:50 Plt Count 387 Th/cmm (150-400) 04/13/18 04:50 MPV 5.7 fl 04/13/18 04:50 Neutrophils % 79.6 % (40.0-80.0) 04/13/18 04:50 Lymphocytes % 7.9 % (20.0-50.0) L 04/13/18 04:50 Monocytes % 9.8 % (2.0-10.0) 04/13/18 04:50 Eosinophils % 0.2 % (0.0-5.0) 04/13/18 04:50 Basophils % 0.0 % (0.0-2.0) 04/13/18 04:50 Neutrophils (Manual) Not Reportable 04/13/18 04:50 Sodium 133 mEq/L (136-145) L 04/13/18 04:50 Potassium 3.5 mEq/L (3.5-5.1) 04/13/18 04:50 Chloride 98 mEq/L (98-107) 04/13/18 04:50 Carbon Dioxide 28.6 mEq/L (21.0-31.0) 04/13/18 04:50 Anion Gap 9.9 (7.0-16.0) 04/13/18 04:50 BUN 17 mg/dL (7-25) 04/13/18 04:50 Creatinine 0.7 mg/dL (0.7-1.3) 04/13/18 04:50 Est GFR ( Amer) TNP 04/13/18 04:50 Est GFR (Non-Af Amer) TNP 04/13/18 04:50 BUN/Creatinine Ratio 24.3 04/13/18 04:50 Glucose 115 mg/dL (70-105) H 04/13/18 04:50 Whole Bld Lactic Acid 1.29 mmol/L (0.60-1.99) 04/11/18 15:14 Calcium 8.4 mg/dL (8.6-10.3) L 04/13/18 04:50 Phosphorus 3.4 mg/dL (2.5-5.0) 04/11/18 15:14 Magnesium 2.0 mg/dL (1.9-2.7) 04/11/18 15:14 Iron 17 ug/dL (38-169) L 04/12/18 05:30 TIBC 258 ug/dL (250-450) 04/12/18 05:30 Iron Saturation 7 % (15-55) L 04/12/18 05:30 Unsaturated IBC 241 ug/dL (111-343) 04/12/18 05:30 Total Bilirubin 0.3 mg/dL (0.3-1.0) 04/11/18 15:14 AST 15 U/L (13-39) 04/11/18 15:14 ALT 14 U/L (7-52) 04/11/18 15:14 Alkaline Phosphatase 55 U/L (34-104) 04/11/18 15:14 Ammonia 39 umol/L (16-53) 04/12/18 05:30 Creatine Kinase 26 U/L (30-223) L 04/11/18 15:14 Total Protein 6.1 gm/dL (6.0-8.3) 04/11/18 15:14 Albumin 3.2 gm/dL (4.2-5.5) L 04/11/18 15:14 Globulin 2.9 gm/dL 04/11/18 15:14 Albumin/Globulin Ratio 1.1 (1.0-1.8) 04/11/18 15:14 TSH 1.07 uIU/ml (0.34-5.60) 04/11/18 15:14 Urine Source RANDOM 04/12/18 11:30 Urine Color YELLOW 04/12/18 11:30 Urine Clarity CLEAR (CLEAR) 04/12/18 11:30 Urine pH 7.0 (4.6 - 8.0) 04/12/18 11:30 Ur Specific [place] 1.015 (1.005-1.030) 04/12/18 11:30 Urine Protein NEGATIVE mg/dL (NEGATIVE) 04/12/18 11:30 Urine Glucose (UA) NEGATIVE mg/dL (NEGATIVE) 04/12/18 11:30 Urine Ketones NEGATIVE mg/dL (NEGATIVE) 04/12/18 11:30 Urine Blood NEGATIVE (NEGATIVE) 04/12/18 11:30 Urine Nitrate NEGATIVE (NEGATIVE) 04/12/18 11:30 Urine Bilirubin NEGATIVE (NEGATIVE) 04/12/18 11:30 Urine Urobilinogen 0.2 E.U./dL (0.2 - 1.0) 04/12/18 11:30 Ur Leukocyte Esterase NEGATIVE (NEGATIVE) 04/12/18 11:30 Stool Occult Blood NEGATIVE (NEGATIVE) 04/13/18 05:50 Urine Opiates Screen NEGATIVE (NEGATIVE) 04/12/18 11:30 Urine Methadone Screen NEGATIVE (NEGATIVE) 04/12/18 11:30 Ur Barbiturates Screen NEGATIVE (NEGATIVE) 04/12/18 11:30 Ur Tricyclics Screen NEGATIVE (NEGATIVE) 04/12/18 11:30 Ur Phencyclidine Scrn NEGATIVE (NEGATIVE) 04/12/18 11:30 Amphetamines Screen NEGATIVE (NEGATIVE) 04/12/18 11:30 U Methamphetamines Scrn NEGATIVE (NEGATIVE) 04/12/18 11:30 U Benzodiazepines Scrn NEGATIVE (NEGATIVE) 04/12/18 11:30 U Cocaine Metab Screen NEGATIVE (NEGATIVE) 04/12/18 11:30 U Cannabinoids Screen NEGATIVE (NEGATIVE) 04/12/18 11:30 - Physical Exam Vitals and I&O: Vital Signs Temp 98.4 F 04/13/18 08:00 Pulse 81 04/13/18 10:37 Resp 18 04/13/18 10:37 BP 122/59 04/13/18 08:00 Pulse Ox 95 04/13/18 10:37 Intake & Output 04/12/18 04/13/18 04/13/18 18:59 06:59 18:59 Intake Total 1250 1867.333 Balance 1250 1867.333 Weight (lbs) 152 lb 152 lb 6 oz 152 lb 6 oz Intake: Intake, IV Amount 1050 1627.333 Cefepime 1 gm In Dextrose 50 50 5% 50 ml @ 100 mls/hr IV Q12HR [facility] Rx#:[id number] D5-0.45NS 1,000 ml @ 80 1000 1577.333 mls/hr IV .[id number] [facility] Rx #:[id number] Oral 200 240 Other: # Voids 2 3 # Bowel Movements 0 2 Stool Characteristics Soft Soft Liquid Liquid Brown Brown Black Black Weight Source Bedscale Bedscale Bedscale Active Medications: Current Medications Acetaminophen (Tylenol Extra Strength) 500 mg PO Q6HR PRN PRN Reason: Pain (Mild) 1-3 Stop: 06/10/18 19:04 Albuterol Sulfate (Albuterol 2.5mg/3ml Neb Ud) 2.5 mg HHN QIDRT [facility] Stop: 06/11/18 06:59 Last Admin: 04/13/18 10:37 Dose: 2.5 mg Ascorbic Acid (Vitamin C) 500 mg PO DAILY [facility] Stop: 06/11/18 08:59 Last Admin: 04/13/18 08:29 Dose: 500 mg Guaifenesin (Robitussin) 200 mg PO Q4HR PRN PRN Reason: Cough or Congestion Stop: 06/10/18 19:08 Cefepime HCl 1 gm/ Dextrose 50 mls @ 100 mls/hr IV Q12HR [facility] Stop: 06/10/18 20:59 Last Admin: 04/13/18 08:30 Dose: 100 mls/hr Dextrose/Sodium Chloride (D5-0.45ns) 1,000 mls @ 80 mls/hr IV .[id number] [facility] Stop: 06/10/18 19:14 Last Infusion: 04/13/18 06:31 Dose: 80 mls/hr Ipratropium [place] (Atrovent Neb 0.5mg/2.5ml) 0.5 mg HHN QIDRT [facility] Stop: 06/11/18 06:59 Last Admin: 04/13/18 10:37 Dose: 0.5 mg Mupirocin (Bactroban Oint) 1 appl NS BID [facility] Stop: 04/17/18 09:01 Last Admin: 04/13/18 08:31 Dose: 1 appl Ondansetron HCl (Zofran) 4 mg IV Q8H PRN PRN Reason: Nausea / Vomiting Stop: 06/10/18 19:08 Tamsulosin HCl (Flomax) 0.4 mg PO HS [facility] Stop: 06/10/18 20:59 Last Admin: 04/12/18 20:53 Dose: 0.4 mg Zinc Sulfate (Zinc Sulfate) 220 mg PO DAILY [facility] Stop: 06/11/18 08:59 Last Admin: 04/13/18 08:29 Dose: 220 mg General: weak, alert HEENT: NC/AT, PERRLA Neck: Supple Lungs: CTAB Cardiovascular: RRR, Normal S1, Normal S2, without murmur Abdomen: soft, non-tender, non-distended, positive bowel sound Extremities: excoriation Neurological: alert - Procedures Procedures: Procedures Procedure Code Date PRP I/TING INIT BLOCK >5 YR 99180 06/13/17 REPAIR RIGHT FEMORAL REGION, OPEN APPROACH [id number] 06/13/17 SUPPLEMENT L INGUINAL REGION WITH SYNTH SUB, OPEN APPROACH [id number] 06/13/17 Internal Medicine Assmt/Plan - Assessment Assessment: Pneumonia, acute respiratory failure, methicillin-resistant staphylococcus aureus nares, hypertension, coronary artery disease, history of congestive heart failure, gastroesophageal reflux disease and dementia. - Plan Plan: protonix 40mg ivp daily gi consult feSO4 bid follow up labs in am continue current plan of care
[2018-04-13] MEDS: D5-0.45NS 1,000 ML IV SCH (11:56)
[2018-04-13] MEDS: Ferrous Sulfate 325 MG TAB PO SCH (16:15)
[2018-04-13] MEDS ORDERED: Albuterol/Ipratropium Neb 3 ML AERS HHN PRN (19:11)
[2018-04-13] MEDS: methylPREDNISolone SS 40 mg Vial IVP SCH (21:37)
--- NOTE | 2018-04-13 23:20 | Consultation ---
DATE OF CONSULTATION: 04/13/2018 GASTROENTEROLOGY CONSULTATION REQUESTING PHYSICIAN: Kurtis Valderrama. REASON FOR CONSULTATION: Nausea and vomiting, anemia and possible GI bleed. HISTORY OF PRESENT ILLNESS: An 88-year-old male with a history of MRSA pneumonia, hypertension, coronary artery disease, CHF, dementia, noted to have some nausea and vomiting and drop in hemoglobin. There is a question of GI bleeding, although this is not conclusive. We were asked to evaluate the patient for above reasons. MEDICATIONS: Here are Tylenol, albuterol, DuoNeb nebulizer, vitamin C, cefepime, IV fluids, Colace, iron, Robitussin, Atrovent, Solu-Medrol, Zofran, Protonix, Flomax, and zinc sulfate. SOCIAL HISTORY: No recent tobacco, alcohol or drugs. FAMILY HISTORY: Noncontributory. REVIEW OF SYSTEMS: A comprehensive 12-point review of system was conducted and is only positive for the signs and symptoms present in history of present illness. PHYSICAL EXAMINATION: VITAL SIGNS: Temperature 98.9, blood pressure 140/59, pulse of 87, respirations 18, O2 sats 96%. GENERAL: The patient is well-developed elderly male, in no acute distress, essentially nonverbal. HEENT: Sclerae nonicteric. Oropharynx is clear. CARDIOVASCULAR: Regular rate and rhythm. LUNGS: With occasional rhonchi at the bases. ABDOMEN: Soft, nontender, nondistended, normoactive bowel sounds. EXTREMITIES: No clubbing, cyanosis or edema. RECTAL: Deferred. LABORATORY DATA/IMAGING: Most recent WBC 7.7; hemoglobin 8.4, on admission was 9; MCV 80; platelet count is 387. Sodium 133, creatinine 0.7. Iron is 17, percent saturation is 7. Liver labs are normal. Ammonia normal. TSH normal. Albumin 3.2. Urinalysis essentially clear. Stool OB is negative x 2. Urine toxicology screen is negative. IMPRESSION: 1. Nausea and vomiting, rule out gastroesophageal reflux disease, gastritis, gastroparesis, peptic ulcer disease, etc. 2. Drop in hemoglobin, rule out slow gastrointestinal blood loss versus anemia of chronic disease versus other. 3. History of coronary artery disease and congestive heart failure. 4. History of dementia. 5. History of hypertension. 6. History of MRSA pneumonia. RECOMMENDATIONS: 1. Protonix. 2. Antiemetics. 3. Oral diet as tolerated. 4. Consider upper endoscopy in a couple of days. Thank you, Dr. Kurtis Valderrama for involving us in the care of your patient today. If you have any further questions, please call us. JOB# [id number]
[2018-04-14 04:55] LABS: HEMATOCRIT 26.6 % (41.0-60); HEMOGLOBIN 8.6 gm/dL (12-16); MEAN CELL VOLUME 81.4 fl (80-99); MEAN CORPUSCULAR HEMOGLOBIN 26.2 pg (27.0-31.0); MEAN CORPUSCULAR HGB CONC 32.2 pg (28.0-36.0); MEAN PLATELET VOLUME 6.3 fl; PLATELET COUNT 373 Th/cmm (150-400); RED BLOOD COUNT 3.27 Mil/cmm (3.80-5.80); RED CELL DISTRIBUTION WIDTH 16.4 % (11.5-20.0); WHITE BLOOD COUNT 9.4 Th/cmm (4.8-10.8)
[2018-04-14 05:30] LABS: ANION GAP 14.1 (7.0-16.0); BUN - UREA NITROGEN 26 mg/dL (7-25); CALCIUM SERUM 8.7 mg/dL (8.6-10.3); CARBON DIOXIDE 25.7 mEq/L (21.0-31.0); CHLORIDE 97 mEq/L (98-107); CREATININE - SERUM 0.8 mg/dL (0.7-1.3); GLUCOSE 190 mg/dL (70-105); POTASSIUM SERUM 3.8 mEq/L (3.5-5.1); SODIUM SERUM 133 mEq/L (136-145)
[2018-04-14 06:38] LABS: BAND NEUTROPHILE 0 % (0-10); EOSINOPHIL 0 % (0-5); LYMPHOCYTE 2 % (20-50); MONOCYTE 2 % (2-10); NEUTROPHILS 96 % (40-80)
[2018-04-14 06:39] LABS: BASOPHIL 0 % (0-3)
[2018-04-14] MEDS: Ipratropium Neb 0.5 mg/2.5 mL UD HHN SCH ×4 (06:45→18:56)
[2018-04-14] MEDS: Albuterol Nebulizer 2.5mg/3mL HHN SCH ×4 (06:45→18:56)
[2018-04-14] MEDS: D5-0.45NS 1,000 ML IV SCH ×2 (06:47→22:58)
--- NOTE | 2018-04-14 07:05 | GI Progress Note ---
Subjective - Review of Systems Service Date: 04/14/18 Subjective: EVENTS NOTED. Objective - Results Result Diagrams: 04/14/18 04:20 04/14/18 04:20 Recent Labs: Laboratory Last Values WBC 9.4 Th/cmm (4.8-10.8) 04/14/18 04:20 RBC 3.27 Mil/cmm (3.80-5.80) L 04/14/18 04:20 Hgb 8.6 gm/dL (12-16) L 04/14/18 04:20 Hct 26.6 % (41.0-60) L 04/14/18 04:20 MCV 81.4 fl (80-99) 04/14/18 04:20 MCH 26.2 pg (27.0-31.0) L 04/14/18 04:20 MCHC Differential 32.2 pg (28.0-36.0) 04/14/18 04:20 RDW 16.4 % (11.5-20.0) 04/14/18 04:20 Plt Count 373 Th/cmm (150-400) 04/14/18 04:20 MPV 6.3 fl 04/14/18 04:20 Add Manual Diff YES 04/14/18 04:20 Neutrophils % 79.6 % (40.0-80.0) 04/13/18 04:50 Band Neutrophils % 0 % (0-10) 04/14/18 04:20 Lymphocytes % 7.9 % (20.0-50.0) L 04/13/18 04:50 Monocytes % 9.8 % (2.0-10.0) 04/13/18 04:50 Eosinophils % 0.2 % (0.0-5.0) 04/13/18 04:50 Basophils % 0.0 % (0.0-2.0) 04/13/18 04:50 Neutrophils (Manual) 96 % (40-80) H 04/14/18 04:20 Lymphocytes 2 % (20-50) L 04/14/18 04:20 Monocytes 2 % (2-10) 04/14/18 04:20 Eosinophils 0 % (0-5) 04/14/18 04:20 Basophils 0 % (0-3) 04/14/18 04:20 Sodium 133 mEq/L (136-145) L 04/14/18 04:20 Potassium 3.8 mEq/L (3.5-5.1) 04/14/18 04:20 Chloride 97 mEq/L (98-107) L 04/14/18 04:20 Carbon Dioxide 25.7 mEq/L (21.0-31.0) 04/14/18 04:20 Anion Gap 14.1 (7.0-16.0) 04/14/18 04:20 BUN 26 mg/dL (7-25) H 04/14/18 04:20 Creatinine 0.8 mg/dL (0.7-1.3) 04/14/18 04:20 Est GFR ( Amer) TNP 04/14/18 04:20 Est GFR (Non-Af Amer) TNP 04/14/18 04:20 BUN/Creatinine Ratio 32.5 04/14/18 04:20 Glucose 190 mg/dL (70-105) H 04/14/18 04:20 Whole Bld Lactic Acid 1.29 mmol/L (0.60-1.99) 04/11/18 15:14 Calcium 8.7 mg/dL (8.6-10.3) 04/14/18 04:20 Phosphorus 3.4 mg/dL (2.5-5.0) 04/11/18 15:14 Magnesium 2.0 mg/dL (1.9-2.7) 04/11/18 15:14 Iron 17 ug/dL (38-169) L 04/12/18 05:30 TIBC 258 ug/dL (250-450) 04/12/18 05:30 Iron Saturation 7 % (15-55) L 04/12/18 05:30 Unsaturated IBC 241 ug/dL (111-343) 04/12/18 05:30 Total Bilirubin 0.3 mg/dL (0.3-1.0) 04/11/18 15:14 AST 15 U/L (13-39) 04/11/18 15:14 ALT 14 U/L (7-52) 04/11/18 15:14 Alkaline Phosphatase 55 U/L (34-104) 04/11/18 15:14 Ammonia 39 umol/L (16-53) 04/12/18 05:30 Creatine Kinase 26 U/L (30-223) L 04/11/18 15:14 Total Protein 6.1 gm/dL (6.0-8.3) 04/11/18 15:14 Albumin 3.2 gm/dL (4.2-5.5) L 04/11/18 15:14 Globulin 2.9 gm/dL 04/11/18 15:14 Albumin/Globulin Ratio 1.1 (1.0-1.8) 04/11/18 15:14 TSH 1.07 uIU/ml (0.34-5.60) 04/11/18 15:14 Urine Source RANDOM 04/12/18 11:30 Urine Color YELLOW 04/12/18 11:30 Urine Clarity CLEAR (CLEAR) 04/12/18 11:30 Urine pH 7.0 (4.6 - 8.0) 04/12/18 11:30 Ur Specific [place] 1.015 (1.005-1.030) 04/12/18 11:30 Urine Protein NEGATIVE mg/dL (NEGATIVE) 04/12/18 11:30 Urine Glucose (UA) NEGATIVE mg/dL (NEGATIVE) 04/12/18 11:30 Urine Ketones NEGATIVE mg/dL (NEGATIVE) 04/12/18 11:30 Urine Blood NEGATIVE (NEGATIVE) 04/12/18 11:30 Urine Nitrate NEGATIVE (NEGATIVE) 04/12/18 11:30 Urine Bilirubin NEGATIVE (NEGATIVE) 04/12/18 11:30 Urine Urobilinogen 0.2 E.U./dL (0.2 - 1.0) 04/12/18 11:30 Ur Leukocyte Esterase NEGATIVE (NEGATIVE) 04/12/18 11:30 Stool Occult Blood NEGATIVE (NEGATIVE) 04/13/18 05:50 Urine Opiates Screen NEGATIVE (NEGATIVE) 04/12/18 11:30 Urine Methadone Screen NEGATIVE (NEGATIVE) 04/12/18 11:30 Ur Barbiturates Screen NEGATIVE (NEGATIVE) 04/12/18 11:30 Ur Tricyclics Screen NEGATIVE (NEGATIVE) 04/12/18 11:30 Ur Phencyclidine Scrn NEGATIVE (NEGATIVE) 04/12/18 11:30 Amphetamines Screen NEGATIVE (NEGATIVE) 04/12/18 11:30 U Methamphetamines Scrn NEGATIVE (NEGATIVE) 04/12/18 11:30 U Benzodiazepines Scrn NEGATIVE (NEGATIVE) 04/12/18 11:30 U Cocaine Metab Screen NEGATIVE (NEGATIVE) 04/12/18 11:30 U Cannabinoids Screen NEGATIVE (NEGATIVE) 04/12/18 11:30 - Physical Exam Vitals and I&O: Vital Signs Temp 98.4 F 04/14/18 04:00 Pulse 77 04/14/18 06:45 Resp 22 04/14/18 06:45 BP 131/81 04/14/18 04:00 Pulse Ox 97 04/14/18 06:45 Intake & Output 04/13/18 04/14/18 04/14/18 18:59 06:59 18:59 Intake Total 778.257 7236 Balance 195.147 6531 Weight (lbs) 69.116 kg 69.173 kg Intake: Intake, IV Amount 318.155 2246 Cefepime 1 gm In Dextrose 50 5% 50 ml @ 100 mls/hr IV Q12HR [facility] Rx#:[id number] D5-0.45NS 1,000 ml @ 80 054.467 1144 mls/hr IV .[id number] [facility] Rx #:[id number] Oral 500 200 Other: # Voids 3 4 # Bowel Movements 2 2 Stool Characteristics Soft Soft Liquid Liquid Brown Brown Black Black Weight Source Bedscale Bedscale Active Medications: Current Medications Acetaminophen (Tylenol Extra Strength) 500 mg PO Q6HR PRN PRN Reason: Pain (Mild) 1-3 Stop: 06/10/18 19:04 Last Admin: 04/13/18 21:37 Dose: 500 mg Albuterol Sulfate (Albuterol 2.5mg/3ml Neb Ud) 2.5 mg HHN QIDRT [facility] Stop: 06/11/18 06:59 Last Admin: 04/14/18 06:45 Dose: 2.5 mg Albuterol/Ipratropium (Duoneb Neb) 3 ml HHN Q4H PRN PRN Reason: Wheezing Stop: 06/12/18 19:10 Ascorbic Acid (Vitamin C) 500 mg PO DAILY [facility] Stop: 06/11/18 08:59 Last Admin: 04/13/18 08:29 Dose: 500 mg Docusate Sodium (Colace) 100 mg PO BID [facility] Stop: 06/12/18 16:59 Last Admin: 04/13/18 16:15 Dose: 100 mg Ferrous Sulfate (Iron) 325 mg PO BID [facility] Stop: 06/12/18 16:59 Last Admin: 04/13/18 16:15 Dose: 325 mg Guaifenesin (Robitussin) 200 mg PO Q4HR PRN PRN Reason: Cough or Congestion Stop: 06/10/18 19:08 Last Admin: 04/13/18 21:37 Dose: 200 mg Cefepime HCl 1 gm/ Dextrose 50 mls @ 100 mls/hr IV Q12HR [facility] Stop: 06/10/18 20:59 Last Admin: 04/13/18 21:36 Dose: 100 mls/hr Dextrose/Sodium Chloride (D5-0.45ns) 1,000 mls @ 80 mls/hr IV .[id number] [facility] Stop: 06/10/18 19:14 Last Admin: 04/14/18 06:47 Dose: 80 mls/hr Ipratropium [place] (Atrovent Neb 0.5mg/2.5ml) 0.5 mg HHN QIDRT [facility] Stop: 06/11/18 06:59 Last Admin: 04/14/18 06:45 Dose: 0.5 mg Methylprednisolone Sodium Succinate (Solu-Medrol) 40 mg IVP Q12HR [facility] Stop: 06/12/18 20:59 Last Admin: 04/13/18 21:37 Dose: 40 mg Mupirocin (Bactroban Oint) 1 appl NS BID [facility] Stop: 04/17/18 09:01 Last Admin: 04/13/18 16:17 Dose: 1 appl Ondansetron HCl (Zofran) 4 mg IV Q8H PRN PRN Reason: Nausea / Vomiting Stop: 06/10/18 19:08 Last Admin: 04/13/18 21:37 Dose: 4 mg Pantoprazole Sodium (Protonix) 40 mg IVP DAILY [facility] Stop: 06/13/18 08:59 Tamsulosin HCl (Flomax) 0.4 mg PO HS [facility] Stop: 06/10/18 20:59 Last Admin: 04/13/18 21:37 Dose: 0.4 mg Zinc Sulfate (Zinc Sulfate) 220 mg PO DAILY [facility] Stop: 06/11/18 08:59 Last Admin: 04/13/18 08:29 Dose: 220 mg General: No acute distress HEENT: Atraumatic Neck: Supple Cardiovascular: Regular rate Lungs: Clear to auscultation Abdomen: Bowel sounds, Soft, Distended (MILD) - Procedures Procedures: Procedures Procedure Code Date PRP I/TING INIT BLOCK >5 YR 55065 06/13/17 REPAIR RIGHT FEMORAL REGION, OPEN APPROACH [id number] 06/13/17 SUPPLEMENT L INGUINAL REGION WITH SYNTH SUB, OPEN APPROACH [id number] 06/13/17 Assessment/Plan - Problem List Patient Problems: All Active Problems COUGH AND CONGESTION (Acute) - Assessment Assessment: IMPRESSION: 1. N/V AND MILD ABD DISTENSION - R/O ILEUS AND/OR CONSTIPATION. 2. ANEMIA WITHOUT OVERT GI BLEED. 3. DEMENTIA. 4. HISTORY PNEUMONIA. RECS: 1. EGD IN AM PENDING CONSENT. 2. CHECK KUB AND ABD US. 3. PROTONIX. 4. ZOFRAN. 5. COLACE. 6. MONITOR HGB. 7. ON IRON.
--- NOTE | 2018-04-14 09:21 | Diagnostic Imaging Report ---
KUB abdominal film HISTORY: Pain, abdominal distention The exam demonstrates slightly dilated small and nondilated stool-filled large bowel. Overall appearance is nonspecific. No free intraperitoneal air. 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 Degenerative changes also seen within the spine. IMPRESSION: 1. Nonspecific bowel gas pattern 2. 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
[2018-04-14] MEDS: Ferrous Sulfate 325 MG TAB PO SCH ×2 (09:43→18:17)
[2018-04-14] MEDS: Multivitamin w/ Minerals Tab PO SCH (09:43)
[2018-04-14] MEDS: Dabigatran Mesylate 75 mg Cap PO SCH ×2 (09:43→18:17)
[2018-04-14] MEDS: methylPREDNISolone SS 40 mg Vial IVP SCH ×2 (10:36→20:57)
--- NOTE | 2018-04-14 12:42 | Internal Medicine Prog Note ---
Internal Medicine Subjective - Subjective Service Date: 04/14/18 Patient seen and examined:: with staff Patient is:: awake, verbal, agitated, confused Patient Complaints of:: vomitting Per staff patient has:: tolerating meds Internal Medicine Objective - Results Result Diagrams: 04/14/18 04:20 04/14/18 04:20 Recent Labs: Laboratory Last Values WBC 9.4 Th/cmm (4.8-10.8) 04/14/18 04:20 RBC 3.27 Mil/cmm (3.80-5.80) L 04/14/18 04:20 Hgb 8.6 gm/dL (12-16) L 04/14/18 04:20 Hct 26.6 % (41.0-60) L 04/14/18 04:20 MCV 81.4 fl (80-99) 04/14/18 04:20 MCH 26.2 pg (27.0-31.0) L 04/14/18 04:20 MCHC Differential 32.2 pg (28.0-36.0) 04/14/18 04:20 RDW 16.4 % (11.5-20.0) 04/14/18 04:20 Plt Count 373 Th/cmm (150-400) 04/14/18 04:20 MPV 6.3 fl 04/14/18 04:20 Add Manual Diff YES 04/14/18 04:20 Neutrophils % 79.6 % (40.0-80.0) 04/13/18 04:50 Band Neutrophils % 0 % (0-10) 04/14/18 04:20 Lymphocytes % 7.9 % (20.0-50.0) L 04/13/18 04:50 Monocytes % 9.8 % (2.0-10.0) 04/13/18 04:50 Eosinophils % 0.2 % (0.0-5.0) 04/13/18 04:50 Basophils % 0.0 % (0.0-2.0) 04/13/18 04:50 Neutrophils (Manual) 96 % (40-80) H 04/14/18 04:20 Lymphocytes 2 % (20-50) L 04/14/18 04:20 Monocytes 2 % (2-10) 04/14/18 04:20 Eosinophils 0 % (0-5) 04/14/18 04:20 Basophils 0 % (0-3) 04/14/18 04:20 Sodium 133 mEq/L (136-145) L 04/14/18 04:20 Potassium 3.8 mEq/L (3.5-5.1) 04/14/18 04:20 Chloride 97 mEq/L (98-107) L 04/14/18 04:20 Carbon Dioxide 25.7 mEq/L (21.0-31.0) 04/14/18 04:20 Anion Gap 14.1 (7.0-16.0) 04/14/18 04:20 BUN 26 mg/dL (7-25) H 04/14/18 04:20 Creatinine 0.8 mg/dL (0.7-1.3) 04/14/18 04:20 Est GFR ( Amer) TNP 04/14/18 04:20 Est GFR (Non-Af Amer) TNP 04/14/18 04:20 BUN/Creatinine Ratio 32.5 04/14/18 04:20 Glucose 190 mg/dL (70-105) H 04/14/18 04:20 Whole Bld Lactic Acid 1.29 mmol/L (0.60-1.99) 04/11/18 15:14 Calcium 8.7 mg/dL (8.6-10.3) 04/14/18 04:20 Phosphorus 3.4 mg/dL (2.5-5.0) 04/11/18 15:14 Magnesium 2.0 mg/dL (1.9-2.7) 04/11/18 15:14 Iron 17 ug/dL (38-169) L 04/12/18 05:30 TIBC 258 ug/dL (250-450) 04/12/18 05:30 Iron Saturation 7 % (15-55) L 04/12/18 05:30 Unsaturated IBC 241 ug/dL (111-343) 04/12/18 05:30 Total Bilirubin 0.3 mg/dL (0.3-1.0) 04/11/18 15:14 AST 15 U/L (13-39) 04/11/18 15:14 ALT 14 U/L (7-52) 04/11/18 15:14 Alkaline Phosphatase 55 U/L (34-104) 04/11/18 15:14 Ammonia 39 umol/L (16-53) 04/12/18 05:30 Creatine Kinase 26 U/L (30-223) L 04/11/18 15:14 Total Protein 6.1 gm/dL (6.0-8.3) 04/11/18 15:14 Albumin 3.2 gm/dL (4.2-5.5) L 04/11/18 15:14 Globulin 2.9 gm/dL 04/11/18 15:14 Albumin/Globulin Ratio 1.1 (1.0-1.8) 04/11/18 15:14 TSH 1.07 uIU/ml (0.34-5.60) 04/11/18 15:14 Urine Source RANDOM 04/12/18 11:30 Urine Color YELLOW 04/12/18 11:30 Urine Clarity CLEAR (CLEAR) 04/12/18 11:30 Urine pH 7.0 (4.6 - 8.0) 04/12/18 11:30 Ur Specific [place] 1.015 (1.005-1.030) 04/12/18 11:30 Urine Protein NEGATIVE mg/dL (NEGATIVE) 04/12/18 11:30 Urine Glucose (UA) NEGATIVE mg/dL (NEGATIVE) 04/12/18 11:30 Urine Ketones NEGATIVE mg/dL (NEGATIVE) 04/12/18 11:30 Urine Blood NEGATIVE (NEGATIVE) 04/12/18 11:30 Urine Nitrate NEGATIVE (NEGATIVE) 04/12/18 11:30 Urine Bilirubin NEGATIVE (NEGATIVE) 04/12/18 11:30 Urine Urobilinogen 0.2 E.U./dL (0.2 - 1.0) 04/12/18 11:30 Ur Leukocyte Esterase NEGATIVE (NEGATIVE) 04/12/18 11:30 Stool Occult Blood NEGATIVE (NEGATIVE) 04/13/18 05:50 Urine Opiates Screen NEGATIVE (NEGATIVE) 04/12/18 11:30 Urine Methadone Screen NEGATIVE (NEGATIVE) 04/12/18 11:30 Ur Barbiturates Screen NEGATIVE (NEGATIVE) 04/12/18 11:30 Ur Tricyclics Screen NEGATIVE (NEGATIVE) 04/12/18 11:30 Ur Phencyclidine Scrn NEGATIVE (NEGATIVE) 04/12/18 11:30 Amphetamines Screen NEGATIVE (NEGATIVE) 04/12/18 11:30 U Methamphetamines Scrn NEGATIVE (NEGATIVE) 04/12/18 11:30 U Benzodiazepines Scrn NEGATIVE (NEGATIVE) 04/12/18 11:30 U Cocaine Metab Screen NEGATIVE (NEGATIVE) 04/12/18 11:30 U Cannabinoids Screen NEGATIVE (NEGATIVE) 04/12/18 11:30 - Physical Exam Vitals and I&O: Vital Signs Temp 97.1 F 04/14/18 11:53 Pulse 80 04/14/18 11:53 Resp 18 04/14/18 11:53 BP 128/74 04/14/18 11:53 Pulse Ox 98 04/14/18 11:53 Intake & Output 04/13/18 04/14/18 04/14/18 18:59 06:59 18:59 Intake Total 195.978 3576 Balance 964.653 6732 Weight (lbs) 152 lb 6 oz 152 lb 8 oz Intake: Intake, IV Amount 739.677 4449 Cefepime 1 gm In Dextrose 50 50 5% 50 ml @ 100 mls/hr IV Q12HR [facility] Rx#:[id number] D5-0.45NS 1,000 ml @ 80 895.708 1604 mls/hr IV .[id number] [facility] Rx #:[id number] Oral 500 200 Other: # Voids 3 4 # Bowel Movements 2 2 Stool Characteristics Soft Soft Soft Liquid Liquid Liquid Brown Brown Brown Black Black Black Weight Source Bedscale Bedscale Active Medications: Current Medications Acetaminophen (Tylenol Extra Strength) 500 mg PO Q6HR PRN PRN Reason: Pain (Mild) 1-3 Stop: 06/10/18 19:04 Last Admin: 04/13/18 21:37 Dose: 500 mg Albuterol Sulfate (Albuterol 2.5mg/3ml Neb Ud) 2.5 mg HHN QIDRT [facility] Stop: 06/11/18 06:59 Last Admin: 04/14/18 11:40 Dose: 2.5 mg Albuterol/Ipratropium (Duoneb Neb) 3 ml HHN Q4H PRN PRN Reason: Wheezing Stop: 06/12/18 19:10 Ascorbic Acid (Vitamin C) 500 mg PO DAILY [facility] Stop: 06/11/18 08:59 Last Admin: 04/14/18 09:42 Dose: Not Given Docusate Sodium (Colace) 100 mg PO BID [facility] Stop: 06/12/18 16:59 Last Admin: 04/14/18 09:43 Dose: Not Given Ferrous Sulfate (Iron) 325 mg PO BID [facility] Stop: 06/12/18 16:59 Last Admin: 04/14/18 09:43 Dose: Not Given Guaifenesin (Robitussin) 200 mg PO Q4HR PRN PRN Reason: Cough or Congestion Stop: 06/10/18 19:08 Last Admin: 04/13/18 21:37 Dose: 200 mg Cefepime HCl 1 gm/ Dextrose 50 mls @ 100 mls/hr IV Q12HR [facility] Stop: 06/10/18 20:59 Last Admin: 04/14/18 09:53 Dose: 100 mls/hr Dextrose/Sodium Chloride (D5-0.45ns) 1,000 mls @ 80 mls/hr IV .[id number] [facility] Stop: 06/10/18 19:14 Last Admin: 04/14/18 06:47 Dose: 80 mls/hr Ipratropium [place] (Atrovent Neb 0.5mg/2.5ml) 0.5 mg HHN QIDRT [facility] Stop: 06/11/18 06:59 Last Admin: 04/14/18 11:40 Dose: 0.5 mg Methylprednisolone Sodium Succinate (Solu-Medrol) 40 mg IVP Q12HR [facility] Stop: 06/12/18 20:59 Last Admin: 04/14/18 10:36 Dose: 40 mg Mupirocin (Bactroban Oint) 1 appl NS BID [facility] Stop: 04/17/18 09:01 Last Admin: 04/14/18 09:56 Dose: 1 appl Ondansetron HCl (Zofran) 4 mg IV Q8H PRN PRN Reason: Nausea / Vomiting Stop: 06/10/18 19:08 Last Admin: 04/13/18 21:37 Dose: 4 mg Pantoprazole Sodium (Protonix) 40 mg IVP DAILY [facility] Stop: 06/13/18 08:59 Last Admin: 04/14/18 09:59 Dose: 40 mg Tamsulosin HCl (Flomax) 0.4 mg PO HS [facility] Stop: 06/10/18 20:59 Last Admin: 04/13/18 21:37 Dose: 0.4 mg Zinc Sulfate (Zinc Sulfate) 220 mg PO DAILY [facility] Stop: 06/11/18 08:59 Last Admin: 04/14/18 09:44 Dose: Not Given General: weak, alert HEENT: NC/AT, PERRLA Neck: Supple Lungs: CTAB Cardiovascular: RRR, Normal S1, Normal S2, without murmur Abdomen: distended (mildly distended) Extremities: excoriation Neurological: alert - Procedures Procedures: Procedures Procedure Code Date PRP I/TING INIT BLOCK >5 YR 48350 06/13/17 REPAIR RIGHT FEMORAL REGION, OPEN APPROACH [id number] 06/13/17 SUPPLEMENT L INGUINAL REGION WITH SYNTH SUB, OPEN APPROACH [id number] 06/13/17 Internal Medicine Assmt/Plan - Assessment Assessment: Pneumonia, acute respiratory failure, methicillin-resistant staphylococcus aureus nares, hypertension, coronary artery disease, history of congestive heart failure, gastroesophageal reflux disease and dementia. - Plan Plan: abd u/s as ordered protonix 40mg ivp daily feSO4 bid follow up labs in am continue current plan of care
[2018-04-15 02:15] LABS: FOLIC ACID 13.4 ng/mL (>3.0)
--- NOTE | 2018-04-15 03:26 | Progress Notes ---
DATE: 04/14/2018 SUBJECTIVE: Staff was spoken to. The patient is interviewed. Mood is noted to be irritable. Affect is constricted. Insight and judgment are noted to be still impaired. Impulse control is poor. The patient is still confused and is not making much sense. ASSESSMENT: The patient is still demented and confused and impulsive. PLAN: To continue the patient with the supportive therapy and followup. JOB# [id number]
[2018-04-15 04:49] LABS: MEAN CORPUSCULAR HEMOGLOBIN 27.3 pg (27.0-31.0); MEAN CORPUSCULAR HGB CONC 34.1 pg (28.0-36.0); MEAN PLATELET VOLUME 6.5 fl; PLATELET COUNT 407 Th/cmm (150-400); RED BLOOD COUNT 2.85 Mil/cmm (3.80-5.80); RED CELL DISTRIBUTION WIDTH 15.9 % (11.5-20.0)
[2018-04-15 05:04] LABS: HEMATOCRIT 22.8 % (41.0-60); HEMOGLOBIN 7.8 gm/dL (12-16)
[2018-04-15 05:30] LABS: INR 1.02 (0.5-1.4); PROTHROMBIN TIME (TEST) 10.6 SECONDS (9.5-11.5)
[2018-04-15 05:53] LABS: ANION GAP 12.8 (7.0-16.0); BUN - UREA NITROGEN 32 mg/dL (7-25); CALCIUM SERUM 8.7 mg/dL (8.6-10.3); CARBON DIOXIDE 26.8 mEq/L (21.0-31.0); CHLORIDE 103 mEq/L (98-107); CREATININE - SERUM 0.7 mg/dL (0.7-1.3); GLUCOSE 168 mg/dL (70-105); POTASSIUM SERUM 3.6 mEq/L (3.5-5.1); SODIUM SERUM 139 mEq/L (136-145)
[2018-04-15 06:54] LABS: BAND NEUTROPHILE 0 % (0-10); EOSINOPHIL 0 % (0-5); LYMPHOCYTE 2 % (20-50); MONOCYTE 5 % (2-10); NEUTROPHILS 93 % (40-80)
[2018-04-15 07:00] LABS: WHITE BLOOD COUNT 15.4 Th/cmm (4.8-10.8)
[2018-04-15] MEDS: Albuterol Nebulizer 2.5mg/3mL HHN SCH ×4 (07:32→19:18)
[2018-04-15] MEDS: Ipratropium Neb 0.5 mg/2.5 mL UD HHN SCH ×4 (07:32→19:17)
[2018-04-15] MEDS ORDERED: Lidocaine 2% Gel 5 mL TP ONE (08:15)
--- NOTE | 2018-04-15 09:06 | Diagnostic Imaging Report ---
Ultrasound abdomen HISTORY: Abdominal distention COMPARISON: CT abdomen and pelvis on 06/13/2017 Technique: Sonography of the abdomen was performed in multiple planes. FINDINGS: Exam is severely limited due to bowel gas and patient being on quadrant. There is suboptimal assessment of the liver. The gallbladder could not be evaluated on this exam. The common bile duct and pancreas could also not be well evaluated on this exam. The right kidney measures 14.2 x 4.2 cm demonstrating cysts the largest measuring 6.5 cm. No hydronephrosis. The left kidney measures 10.0 x 4.9 cm. No evidence of focal lesions or hydronephrosis. The spleen measures 9 cm. IMPRESSION: Limited exam due to bowel gas as the patient was uncooperative. The gallbladder was not able well evaluated on this exam. Large right renal cysts. No hydronephrosis.
[2018-04-15] MEDS: methylPREDNISolone SS 40 mg Vial IVP SCH ×2 (10:07→21:34)
[2018-04-15] MEDS: Dabigatran Mesylate 75 mg Cap PO SCH ×2 (10:24→17:39)
[2018-04-15] MEDS: Ferrous Sulfate 325 MG TAB PO SCH ×2 (10:24→17:39)
[2018-04-15] MEDS: Multivitamin w/ Minerals Tab PO SCH (10:25)
--- NOTE | 2018-04-15 10:33 | Operative Report ---
DATE OF SURGERY: 04/15/2018 PROCEDURE: Esophagogastroscopy with biopsy. PREOPERATIVE DIAGNOSES: Nausea, vomiting and possible upper gastrointestinal bleed in the setting of anemia. POSTOPERATIVE DIAGNOSES: 1. Mild reflux esophagitis, status post biopsy; likely cause of upper gastrointestinal bleed, now stopped. 2. Small to moderate hiatal hernia. 3. Mild gastritis, status post biopsy and CLOtest. INDICATION: An 88-year-old male with nausea, vomiting and upper GI bleed with a drop in hemoglobin undergoing an upper endoscopy for further evaluation. CONSENT: Informed consent was obtained from the patient's family prior to procedure after detailed explanation of risks, benefits, alternatives including, but not limited to infection, bleeding, perforation and . SEDATION: Monitored anesthesia care per Dr. Valiente. DESCRIPTION OF PROCEDURE AND FINDINGS: The procedure took place as an inpatient in the GI suite of [facility]. The patient was kept in a left lateral decubitus position. Adequate sedation was achieved. An Olympus diagnostic upper endoscope was advanced through the patient's mouth and into the esophagus. Here, there was mild erosive esophagitis with the Z-line, slightly irregular-appearing at 36 cm from the gums. Biopsies were obtained from here to rule out short segment Green esophagus versus occult dysplasia. A small to moderate size hiatal hernia was best noted on retroflexed view in the stomach. The diaphragmatic pinch was at 40 cm from the gums. There was therefore a 3-4 cm hiatal hernia identified. Mild gastritis was identified in the antrum. Biopsies were taken for CLOtest as well as pathology. No ulcers or mass lesions were identified within the stomach. The pyloric channel and duodenum up to second portion appeared normal. The scope was then withdrawn from the patient. The patient tolerated the procedure well and no complications were anticipated. IMPRESSION: 1. Follow up biopsy results. 2. Protonix. 3. Resume oral diet. 4. Monitor hemoglobin and transfuse as necessary. Thank you, Dr. Kurtis Valderrama for involving us in the care of your patient. If you have any further questions, please call us. JOB# [id number] MTDD
--- NOTE | 2018-04-15 14:17 | Internal Medicine Prog Note ---
Internal Medicine Subjective - Subjective Service Date: 04/15/18 Patient is:: awake, verbal, agitated, confused Patient Complaints of:: vomitting Per staff patient has:: tolerating meds Internal Medicine Objective - Results Result Diagrams: 04/15/18 04:15 04/15/18 04:15 Recent Labs: Laboratory Last Values WBC 15.4 Th/cmm (4.8-10.8) H D 04/15/18 04:15 RBC 2.85 Mil/cmm (3.80-5.80) L 04/15/18 04:15 Hgb 7.8 gm/dL (12-16) L* 04/15/18 04:15 Hct 22.8 % (41.0-60) L 04/15/18 04:15 MCV 80.0 fl (80-99) 04/15/18 04:15 MCH 27.3 pg (27.0-31.0) 04/15/18 04:15 MCHC Differential 34.1 pg (28.0-36.0) 04/15/18 04:15 RDW 15.9 % (11.5-20.0) 04/15/18 04:15 Plt Count 407 Th/cmm (150-400) H 04/15/18 04:15 MPV 6.5 fl 04/15/18 04:15 Add Manual Diff YES 04/15/18 04:15 Neutrophils % 79.6 % (40.0-80.0) 04/13/18 04:50 Band Neutrophils % 0 % (0-10) 04/15/18 04:15 Lymphocytes % 7.9 % (20.0-50.0) L 04/13/18 04:50 Monocytes % 9.8 % (2.0-10.0) 04/13/18 04:50 Eosinophils % 0.2 % (0.0-5.0) 04/13/18 04:50 Basophils % 0.0 % (0.0-2.0) 04/13/18 04:50 Neutrophils (Manual) 93 % (40-80) H 04/15/18 04:15 Lymphocytes 2 % (20-50) L 04/15/18 04:15 Monocytes 5 % (2-10) 04/15/18 04:15 Eosinophils 0 % (0-5) 04/15/18 04:15 Basophils 0 % (0-3) 04/14/18 04:20 PT 10.6 SECONDS (9.5-11.5) 04/15/18 04:15 INR 1.02 (0.5-1.4) 04/15/18 04:15 PTT (Actin FS) 30.7 SECONDS (26.0-38.0) 04/15/18 04:15 Sodium 139 mEq/L (136-145) 04/15/18 04:15 Potassium 3.6 mEq/L (3.5-5.1) 04/15/18 04:15 Chloride 103 mEq/L (98-107) 04/15/18 04:15 Carbon Dioxide 26.8 mEq/L (21.0-31.0) 04/15/18 04:15 Anion Gap 12.8 (7.0-16.0) 04/15/18 04:15 BUN 32 mg/dL (7-25) H 04/15/18 04:15 Creatinine 0.7 mg/dL (0.7-1.3) 04/15/18 04:15 Est GFR ( Amer) TNP 04/15/18 04:15 Est GFR (Non-Af Amer) TNP 04/15/18 04:15 BUN/Creatinine Ratio 45.7 04/15/18 04:15 Glucose 168 mg/dL (70-105) H 04/15/18 04:15 Whole Bld Lactic Acid 1.29 mmol/L (0.60-1.99) 04/11/18 15:14 Calcium 8.7 mg/dL (8.6-10.3) 04/15/18 04:15 Phosphorus 3.4 mg/dL (2.5-5.0) 04/11/18 15:14 Magnesium 2.0 mg/dL (1.9-2.7) 04/11/18 15:14 Iron 17 ug/dL (38-169) L 04/12/18 05:30 TIBC 258 ug/dL (250-450) 04/12/18 05:30 Iron Saturation 7 % (15-55) L 04/12/18 05:30 Unsaturated IBC 241 ug/dL (111-343) 04/12/18 05:30 Total Bilirubin 0.3 mg/dL (0.3-1.0) 04/11/18 15:14 AST 15 U/L (13-39) 04/11/18 15:14 ALT 14 U/L (7-52) 04/11/18 15:14 Alkaline Phosphatase 55 U/L (34-104) 04/11/18 15:14 Ammonia 39 umol/L (16-53) 04/12/18 05:30 Creatine Kinase 26 U/L (30-223) L 04/11/18 15:14 Total Protein 6.1 gm/dL (6.0-8.3) 04/11/18 15:14 Albumin 3.2 gm/dL (4.2-5.5) L 04/11/18 15:14 Globulin 2.9 gm/dL 04/11/18 15:14 Albumin/Globulin Ratio 1.1 (1.0-1.8) 04/11/18 15:14 Vitamin B12 912 pg/mL (232-1245) 04/12/18 05:30 Folic Acid 13.4 ng/mL (>3.0) 04/12/18 05:30 TSH 1.07 uIU/ml (0.34-5.60) 04/11/18 15:14 Urine Source RANDOM 04/12/18 11:30 Urine Color YELLOW 04/12/18 11:30 Urine Clarity CLEAR (CLEAR) 04/12/18 11:30 Urine pH 7.0 (4.6 - 8.0) 04/12/18 11:30 Ur Specific [place] 1.015 (1.005-1.030) 04/12/18 11:30 Urine Protein NEGATIVE mg/dL (NEGATIVE) 04/12/18 11:30 Urine Glucose (UA) NEGATIVE mg/dL (NEGATIVE) 04/12/18 11:30 Urine Ketones NEGATIVE mg/dL (NEGATIVE) 04/12/18 11:30 Urine Blood NEGATIVE (NEGATIVE) 04/12/18 11:30 Urine Nitrate NEGATIVE (NEGATIVE) 04/12/18 11:30 Urine Bilirubin NEGATIVE (NEGATIVE) 04/12/18 11:30 Urine Urobilinogen 0.2 E.U./dL (0.2 - 1.0) 04/12/18 11:30 Ur Leukocyte Esterase NEGATIVE (NEGATIVE) 04/12/18 11:30 Stool Occult Blood NEGATIVE (NEGATIVE) 04/13/18 05:50 Urine Opiates Screen NEGATIVE (NEGATIVE) 04/12/18 11:30 Urine Methadone Screen NEGATIVE (NEGATIVE) 04/12/18 11:30 Ur Barbiturates Screen NEGATIVE (NEGATIVE) 04/12/18 11:30 Ur Tricyclics Screen NEGATIVE (NEGATIVE) 04/12/18 11:30 Ur Phencyclidine Scrn NEGATIVE (NEGATIVE) 04/12/18 11:30 Amphetamines Screen NEGATIVE (NEGATIVE) 04/12/18 11:30 U Methamphetamines Scrn NEGATIVE (NEGATIVE) 04/12/18 11:30 U Benzodiazepines Scrn NEGATIVE (NEGATIVE) 04/12/18 11:30 U Cocaine Metab Screen NEGATIVE (NEGATIVE) 04/12/18 11:30 U Cannabinoids Screen NEGATIVE (NEGATIVE) 04/12/18 11:30 - Physical Exam Vitals and I&O: Vital Signs Temp 97.3 F 04/15/18 13:27 Pulse 84 04/15/18 13:27 Resp 22 04/15/18 13:27 BP 112/50 04/15/18 13:27 Pulse Ox 97 04/15/18 11:41 Intake & Output 04/14/18 04/15/18 04/15/18 18:59 06:59 18:59 Intake Total 50 1050 Balance 50 1050 Weight (lbs) 152 lb 8 oz Intake: Intake, IV Amount 50 1050 Cefepime 1 gm In Dextrose 50 50 5% 50 ml @ 100 mls/hr IV Q12HR [facility] Rx#:[id number] D5-0.45NS 1,000 ml @ 80 1000 mls/hr IV .[id number] [facility] Rx #:[id number] Other: # Voids 2 # Bowel Movements 1 Stool Characteristics Soft Soft Soft Liquid Liquid Liquid Brown Brown Brown Black Black Black Weight Source Bedscale Active Medications: Current Medications Acetaminophen (Tylenol Extra Strength) 500 mg PO Q6HR PRN PRN Reason: Pain (Mild) 1-3 Stop: 06/10/18 19:04 Last Admin: 04/13/18 21:37 Dose: 500 mg Albuterol Sulfate (Albuterol 2.5mg/3ml Neb Ud) 2.5 mg HHN QIDRT [facility] Stop: 06/11/18 06:59 Last Admin: 04/15/18 11:17 Dose: 2.5 mg Albuterol/Ipratropium (Duoneb Neb) 3 ml HHN Q4H PRN PRN Reason: Wheezing Stop: 06/12/18 19:10 Ascorbic Acid (Vitamin C) 500 mg PO DAILY [facility] Stop: 06/11/18 08:59 Last Admin: 04/15/18 10:24 Dose: Not Given Docusate Sodium (Colace) 100 mg PO BID [facility] Stop: 06/12/18 16:59 Last Admin: 04/15/18 10:24 Dose: Not Given Ferrous Sulfate (Iron) 325 mg PO BID [facility] Stop: 06/12/18 16:59 Last Admin: 04/15/18 10:24 Dose: Not Given Guaifenesin (Robitussin) 200 mg PO Q4HR PRN PRN Reason: Cough or Congestion Stop: 06/10/18 19:08 Last Admin: 04/13/18 21:37 Dose: 200 mg Cefepime HCl 1 gm/ Dextrose 50 mls @ 100 mls/hr IV Q12HR [facility] Stop: 06/10/18 20:59 Last Admin: 04/15/18 10:05 Dose: 100 mls/hr Dextrose/Sodium Chloride (D5-0.45ns) 1,000 mls @ 50 mls/hr IV .Q20H [facility] Stop: 06/14/18 12:29 Ipratropium [place] (Atrovent Neb 0.5mg/2.5ml) 0.5 mg HHN QIDRT [facility] Stop: 06/11/18 06:59 Last Admin: 04/15/18 11:17 Dose: 0.5 mg Methylprednisolone Sodium Succinate (Solu-Medrol) 20 mg IVP Q12HR [facility] Stop: 06/14/18 20:59 Mupirocin (Bactroban Oint) 1 appl NS BID [facility] Stop: 04/17/18 09:01 Last Admin: 04/15/18 10:07 Dose: 1 appl Ondansetron HCl (Zofran) 4 mg IV Q8H PRN PRN Reason: Nausea / Vomiting Stop: 06/10/18 19:08 Last Admin: 04/13/18 21:37 Dose: 4 mg Pantoprazole Sodium (Protonix) 40 mg IVP DAILY [facility] Stop: 06/13/18 08:59 Last Admin: 04/15/18 10:07 Dose: 40 mg Tamsulosin HCl (Flomax) 0.4 mg PO HS [facility] Stop: 06/10/18 20:59 Last Admin: 04/14/18 21:08 Dose: Not Given Zinc Sulfate (Zinc Sulfate) 220 mg PO DAILY [facility] Stop: 06/11/18 08:59 Last Admin: 04/15/18 10:25 Dose: Not Given General: weak, alert HEENT: NC/AT, PERRLA Neck: Supple Lungs: CTAB Cardiovascular: RRR, Normal S1, Normal S2, without murmur Abdomen: distended (mildly distended) Extremities: excoriation Neurological: alert - Procedures Procedures: Procedures Procedure Code Date PRP I/TING INIT BLOCK >5 YR 66231 06/13/17 REPAIR RIGHT FEMORAL REGION, OPEN APPROACH [id number] 06/13/17 SUPPLEMENT L INGUINAL REGION WITH SYNTH SUB, OPEN APPROACH [id number] 06/13/17 Internal Medicine Assmt/Plan - Assessment Assessment: s/p egd gastritis, Pneumonia, acute respiratory failure, methicillin-resistant staphylococcus aureus nares, hypertension, coronary artery disease, history of congestive heart failure, gastroesophageal reflux disease and dementia. - Plan Plan: protonix 40mg ivp daily feSO4 bid follow up labs in am continue current plan of care
[2018-04-15] MEDS: D5-0.45NS 1,000 ML IV SCH (15:35)
[2018-04-16 05:24] LABS: MEAN CELL VOLUME 80.2 fl (80-99); MEAN CORPUSCULAR HEMOGLOBIN 27.2 pg (27.0-31.0); MEAN CORPUSCULAR HGB CONC 33.9 pg (28.0-36.0); MEAN PLATELET VOLUME 6.3 fl; PLATELET COUNT 394 Th/cmm (150-400); RED BLOOD COUNT 2.49 Mil/cmm (3.80-5.80); WHITE BLOOD COUNT 10.1 Th/cmm (4.8-10.8)
[2018-04-16 05:41] LABS: HEMOGLOBIN 6.8 gm/dL (12-16)
[2018-04-16 06:52] LABS: BAND NEUTROPHILE 1 % (0-10); BASOPHIL 0 % (0-3); EOSINOPHIL 0 % (0-5); LYMPHOCYTE 3 % (20-50); MONOCYTE 2 % (2-10); NEUTROPHILS 94 % (40-80)
[2018-04-16 07:23] LABS: ANION GAP 11.2 (7.0-16.0); BUN - UREA NITROGEN 23 mg/dL (7-25); CALCIUM SERUM 8.6 mg/dL (8.6-10.3); CARBON DIOXIDE 27.6 mEq/L (21.0-31.0); CHLORIDE 105 mEq/L (98-107); CREATININE - SERUM 0.7 mg/dL (0.7-1.3); GLUCOSE 143 mg/dL (70-105); POTASSIUM SERUM 3.8 mEq/L (3.5-5.1); SODIUM SERUM 140 mEq/L (136-145)
--- NOTE | 2018-04-16 07:44 | GI Progress Note ---
Subjective - Review of Systems Service Date: 04/16/18 Subjective: EVENTS NOTED. NOT EATING MUCH. Objective - Results Result Diagrams: 04/16/18 05:00 04/16/18 05:00 Recent Labs: Laboratory Last Values WBC 10.1 Th/cmm (4.8-10.8) 04/16/18 05:00 RBC 2.49 Mil/cmm (3.80-5.80) L 04/16/18 05:00 Hgb 6.8 gm/dL (12-16) L* 04/16/18 05:00 Hct 20.0 % (41.0-60) L* 04/16/18 05:00 MCV 80.2 fl (80-99) 04/16/18 05:00 MCH 27.2 pg (27.0-31.0) 04/16/18 05:00 MCHC Differential 33.9 pg (28.0-36.0) 04/16/18 05:00 RDW 17.0 % (11.5-20.0) 04/16/18 05:00 Plt Count 394 Th/cmm (150-400) 04/16/18 05:00 MPV 6.3 fl 04/16/18 05:00 Add Manual Diff YES 04/16/18 05:00 Neutrophils % 79.6 % (40.0-80.0) 04/13/18 04:50 Band Neutrophils % 1 % (0-10) 04/16/18 05:00 Lymphocytes % 7.9 % (20.0-50.0) L 04/13/18 04:50 Monocytes % 9.8 % (2.0-10.0) 04/13/18 04:50 Eosinophils % 0.2 % (0.0-5.0) 04/13/18 04:50 Basophils % 0.0 % (0.0-2.0) 04/13/18 04:50 Neutrophils (Manual) 94 % (40-80) H 04/16/18 05:00 Lymphocytes 3 % (20-50) L 04/16/18 05:00 Monocytes 2 % (2-10) 04/16/18 05:00 Eosinophils 0 % (0-5) 04/16/18 05:00 Basophils 0 % (0-3) 04/16/18 05:00 PT 10.6 SECONDS (9.5-11.5) 04/15/18 04:15 INR 1.02 (0.5-1.4) 04/15/18 04:15 PTT (Actin FS) 30.7 SECONDS (26.0-38.0) 04/15/18 04:15 Sodium 140 mEq/L (136-145) 04/16/18 05:00 Potassium 3.8 mEq/L (3.5-5.1) 04/16/18 05:00 Chloride 105 mEq/L (98-107) 04/16/18 05:00 Carbon Dioxide 27.6 mEq/L (21.0-31.0) 04/16/18 05:00 Anion Gap 11.2 (7.0-16.0) 04/16/18 05:00 BUN 23 mg/dL (7-25) 04/16/18 05:00 Creatinine 0.7 mg/dL (0.7-1.3) 04/16/18 05:00 Est GFR ( Amer) TNP 04/16/18 05:00 Est GFR (Non-Af Amer) TNP 04/16/18 05:00 BUN/Creatinine Ratio 32.9 04/16/18 05:00 Glucose 143 mg/dL (70-105) H 04/16/18 05:00 Whole Bld Lactic Acid 1.29 mmol/L (0.60-1.99) 04/11/18 15:14 Calcium 8.6 mg/dL (8.6-10.3) 04/16/18 05:00 Phosphorus 3.4 mg/dL (2.5-5.0) 04/11/18 15:14 Magnesium 2.0 mg/dL (1.9-2.7) 04/11/18 15:14 Iron 17 ug/dL (38-169) L 04/12/18 05:30 TIBC 258 ug/dL (250-450) 04/12/18 05:30 Iron Saturation 7 % (15-55) L 04/12/18 05:30 Unsaturated IBC 241 ug/dL (111-343) 04/12/18 05:30 Total Bilirubin 0.3 mg/dL (0.3-1.0) 04/11/18 15:14 AST 15 U/L (13-39) 04/11/18 15:14 ALT 14 U/L (7-52) 04/11/18 15:14 Alkaline Phosphatase 55 U/L (34-104) 04/11/18 15:14 Ammonia 39 umol/L (16-53) 04/12/18 05:30 Creatine Kinase 26 U/L (30-223) L 04/11/18 15:14 Total Protein 6.1 gm/dL (6.0-8.3) 04/11/18 15:14 Albumin 3.2 gm/dL (4.2-5.5) L 04/11/18 15:14 Globulin 2.9 gm/dL 04/11/18 15:14 Albumin/Globulin Ratio 1.1 (1.0-1.8) 04/11/18 15:14 Vitamin B12 912 pg/mL (232-1245) 04/12/18 05:30 Folic Acid 13.4 ng/mL (>3.0) 04/12/18 05:30 TSH 1.07 uIU/ml (0.34-5.60) 04/11/18 15:14 Urine Source RANDOM 04/12/18 11:30 Urine Color YELLOW 04/12/18 11:30 Urine Clarity CLEAR (CLEAR) 04/12/18 11:30 Urine pH 7.0 (4.6 - 8.0) 04/12/18 11:30 Ur Specific [place] 1.015 (1.005-1.030) 04/12/18 11:30 Urine Protein NEGATIVE mg/dL (NEGATIVE) 04/12/18 11:30 Urine Glucose (UA) NEGATIVE mg/dL (NEGATIVE) 04/12/18 11:30 Urine Ketones NEGATIVE mg/dL (NEGATIVE) 04/12/18 11:30 Urine Blood NEGATIVE (NEGATIVE) 04/12/18 11:30 Urine Nitrate NEGATIVE (NEGATIVE) 04/12/18 11:30 Urine Bilirubin NEGATIVE (NEGATIVE) 04/12/18 11:30 Urine Urobilinogen 0.2 E.U./dL (0.2 - 1.0) 04/12/18 11:30 Ur Leukocyte Esterase NEGATIVE (NEGATIVE) 04/12/18 11:30 Stool Occult Blood NEGATIVE (NEGATIVE) 04/13/18 05:50 Urine Opiates Screen NEGATIVE (NEGATIVE) 04/12/18 11:30 Urine Methadone Screen NEGATIVE (NEGATIVE) 04/12/18 11:30 Ur Barbiturates Screen NEGATIVE (NEGATIVE) 04/12/18 11:30 Ur Tricyclics Screen NEGATIVE (NEGATIVE) 04/12/18 11:30 Ur Phencyclidine Scrn NEGATIVE (NEGATIVE) 04/12/18 11:30 Amphetamines Screen NEGATIVE (NEGATIVE) 04/12/18 11:30 U Methamphetamines Scrn NEGATIVE (NEGATIVE) 04/12/18 11:30 U Benzodiazepines Scrn NEGATIVE (NEGATIVE) 04/12/18 11:30 U Cocaine Metab Screen NEGATIVE (NEGATIVE) 04/12/18 11:30 U Cannabinoids Screen NEGATIVE (NEGATIVE) 04/12/18 11:30 - Physical Exam Vitals and I&O: Vital Signs Temp 97.5 F 04/16/18 04:00 Pulse 81 04/16/18 04:00 Resp 17 04/16/18 04:00 BP 113/59 04/16/18 04:00 Pulse Ox 97 04/16/18 04:00 Intake & Output 04/15/18 04/16/18 04/16/18 18:59 06:59 18:59 Intake Total 50 Balance 50 Weight (lbs) 69.173 kg Intake: Intake, IV Amount 50 Cefepime 1 gm In Dextrose 50 5% 50 ml @ 100 mls/hr IV Q12HR [facility] Rx#:[id number] Other: # Voids 2 # Bowel Movements 1 Stool Characteristics Soft Soft Liquid Liquid Brown Brown Black Black Weight Source Bedscale Active Medications: Current Medications Acetaminophen (Tylenol Extra Strength) 500 mg PO Q6HR PRN PRN Reason: Pain (Mild) 1-3 Stop: 06/10/18 19:04 Last Admin: 04/13/18 21:37 Dose: 500 mg Albuterol Sulfate (Albuterol 2.5mg/3ml Neb Ud) 2.5 mg HHN QIDRT [facility] Stop: 06/11/18 06:59 Last Admin: 04/15/18 19:18 Dose: 2.5 mg Albuterol/Ipratropium (Duoneb Neb) 3 ml HHN Q4H PRN PRN Reason: Wheezing Stop: 06/12/18 19:10 Ascorbic Acid (Vitamin C) 500 mg PO DAILY [facility] Stop: 06/11/18 08:59 Last Admin: 04/15/18 10:24 Dose: Not Given Docusate Sodium (Colace) 100 mg PO BID [facility] Stop: 06/12/18 16:59 Last Admin: 04/15/18 17:39 Dose: Not Given Ferrous Sulfate (Iron) 325 mg PO BID [facility] Stop: 06/12/18 16:59 Last Admin: 04/15/18 17:39 Dose: Not Given Guaifenesin (Robitussin) 200 mg PO Q4HR PRN PRN Reason: Cough or Congestion Stop: 06/10/18 19:08 Last Admin: 04/13/18 21:37 Dose: 200 mg Cefepime HCl 1 gm/ Dextrose 50 mls @ 100 mls/hr IV Q12HR [facility] Stop: 06/10/18 20:59 Last Admin: 04/15/18 21:35 Dose: 100 mls/hr Dextrose/Sodium Chloride (D5-0.45ns) 1,000 mls @ 50 mls/hr IV .Q20H [facility] Stop: 06/14/18 12:29 Last Admin: 04/15/18 15:35 Dose: 50 mls/hr Ipratropium [place] (Atrovent Neb 0.5mg/2.5ml) 0.5 mg HHN QIDRT [facility] Stop: 06/11/18 06:59 Last Admin: 04/15/18 19:17 Dose: 0.5 mg Methylprednisolone Sodium Succinate (Solu-Medrol) 20 mg IVP Q12HR [facility] Stop: 06/14/18 20:59 Last Admin: 04/15/18 21:34 Dose: 20 mg Mupirocin (Bactroban Oint) 1 appl NS BID [facility] Stop: 04/17/18 09:01 Last Admin: 04/15/18 17:00 Dose: 1 appl Ondansetron HCl (Zofran) 4 mg IV Q8H PRN PRN Reason: Nausea / Vomiting Stop: 06/10/18 19:08 Last Admin: 04/13/18 21:37 Dose: 4 mg Pantoprazole Sodium (Protonix) 40 mg IVP DAILY [facility] Stop: 06/13/18 08:59 Last Admin: 04/15/18 10:07 Dose: 40 mg Tamsulosin HCl (Flomax) 0.4 mg PO HS [facility] Stop: 06/10/18 20:59 Last Admin: 04/14/18 21:08 Dose: Not Given Zinc Sulfate (Zinc Sulfate) 220 mg PO DAILY [facility] Stop: 06/11/18 08:59 Last Admin: 04/15/18 10:25 Dose: Not Given General: No acute distress HEENT: Atraumatic Neck: Supple Cardiovascular: Regular rate Lungs: Clear to auscultation Abdomen: Bowel sounds, Soft - Procedures Procedures: Procedures Procedure Code Date PRP I/TING INIT BLOCK >5 YR 13461 06/13/17 REPAIR RIGHT FEMORAL REGION, OPEN APPROACH [id number] 06/13/17 SUPPLEMENT L INGUINAL REGION WITH SYNTH SUB, OPEN APPROACH [id number] 06/13/17 Assessment/Plan - Problem List Patient Problems: All Active Problems COUGH AND CONGESTION (Acute) - Assessment Assessment: IMPRESSION: 1. N/V AND MILD ABD DISTENSION - R/O ILEUS AND/OR CONSTIPATION, IMPROVED. 2. ANEMIA WITHOUT OVERT GI BLEED. EGD SHOWED ESOPHAGITIS, SM-MOD HIATAL HERNIA , GASTRITIS. 3. DEMENTIA. 4. HISTORY PNEUMONIA. 5. ANOREXIA. RECS: 1. F/U BX RESULTS. 2. WILL TRANSFUSE 2 UNITS PRBCS TODAY. 3. PROTONIX. 4. ZOFRAN. 5. COLACE. 6. ENSURE SUPPLEMENTS; MAY NEED PEG IF ORAL INTAKE REMAINS POOR. 7. ON IRON. 8. HIGH RISK FOR COLONOSCOPY CURRENTLY GIVEN DIFFICULTY IN DRINKING PREP ORALLY.
[2018-04-16] MEDS: Ipratropium Neb 0.5 mg/2.5 mL UD HHN SCH ×3 (08:02→14:25)
[2018-04-16] MEDS: Albuterol Nebulizer 2.5mg/3mL HHN SCH ×3 (08:02→14:25)
[2018-04-16] MEDS: D5-0.45NS 1,000 ML IV SCH (08:57)
[2018-04-16] MEDS: methylPREDNISolone SS 40 mg Vial IVP SCH (08:58)
[2018-04-16] MEDS: Ferrous Sulfate 325 MG TAB PO SCH ×2 (08:58→17:32)
[2018-04-16] MEDS: Multivitamin w/ Minerals Tab PO SCH (08:58)
[2018-04-16] MEDS ORDERED: Probiotic Screen MC PRN (14:42)
--- NOTE | 2018-04-16 15:16 | Internal Medicine Prog Note ---
Internal Medicine Subjective - Subjective Service Date: 04/16/18 Patient is:: awake, verbal, agitated, confused Patient Complaints of:: vomitting Per staff patient has:: tolerating meds Internal Medicine Objective - Results Result Diagrams: 04/16/18 05:00 04/16/18 05:00 Recent Labs: Laboratory Last Values WBC 10.1 Th/cmm (4.8-10.8) 04/16/18 05:00 RBC 2.49 Mil/cmm (3.80-5.80) L 04/16/18 05:00 Hgb 6.8 gm/dL (12-16) L* 04/16/18 05:00 Hct 20.0 % (41.0-60) L* 04/16/18 05:00 MCV 80.2 fl (80-99) 04/16/18 05:00 MCH 27.2 pg (27.0-31.0) 04/16/18 05:00 MCHC Differential 33.9 pg (28.0-36.0) 04/16/18 05:00 RDW 17.0 % (11.5-20.0) 04/16/18 05:00 Plt Count 394 Th/cmm (150-400) 04/16/18 05:00 MPV 6.3 fl 04/16/18 05:00 Add Manual Diff YES 04/16/18 05:00 Neutrophils % 79.6 % (40.0-80.0) 04/13/18 04:50 Band Neutrophils % 1 % (0-10) 04/16/18 05:00 Lymphocytes % 7.9 % (20.0-50.0) L 04/13/18 04:50 Monocytes % 9.8 % (2.0-10.0) 04/13/18 04:50 Eosinophils % 0.2 % (0.0-5.0) 04/13/18 04:50 Basophils % 0.0 % (0.0-2.0) 04/13/18 04:50 Neutrophils (Manual) 94 % (40-80) H 04/16/18 05:00 Lymphocytes 3 % (20-50) L 04/16/18 05:00 Monocytes 2 % (2-10) 04/16/18 05:00 Eosinophils 0 % (0-5) 04/16/18 05:00 Basophils 0 % (0-3) 04/16/18 05:00 PT 10.6 SECONDS (9.5-11.5) 04/15/18 04:15 INR 1.02 (0.5-1.4) 04/15/18 04:15 PTT (Actin FS) 30.7 SECONDS (26.0-38.0) 04/15/18 04:15 Sodium 140 mEq/L (136-145) 04/16/18 05:00 Potassium 3.8 mEq/L (3.5-5.1) 04/16/18 05:00 Chloride 105 mEq/L (98-107) 04/16/18 05:00 Carbon Dioxide 27.6 mEq/L (21.0-31.0) 04/16/18 05:00 Anion Gap 11.2 (7.0-16.0) 04/16/18 05:00 BUN 23 mg/dL (7-25) 04/16/18 05:00 Creatinine 0.7 mg/dL (0.7-1.3) 04/16/18 05:00 Est GFR ( Amer) TNP 04/16/18 05:00 Est GFR (Non-Af Amer) TNP 04/16/18 05:00 BUN/Creatinine Ratio 32.9 04/16/18 05:00 Glucose 143 mg/dL (70-105) H 04/16/18 05:00 Whole Bld Lactic Acid 1.29 mmol/L (0.60-1.99) 04/11/18 15:14 Calcium 8.6 mg/dL (8.6-10.3) 04/16/18 05:00 Phosphorus 3.4 mg/dL (2.5-5.0) 04/11/18 15:14 Magnesium 2.0 mg/dL (1.9-2.7) 04/11/18 15:14 Iron 17 ug/dL (38-169) L 04/12/18 05:30 TIBC 258 ug/dL (250-450) 04/12/18 05:30 Iron Saturation 7 % (15-55) L 04/12/18 05:30 Unsaturated IBC 241 ug/dL (111-343) 04/12/18 05:30 Total Bilirubin 0.3 mg/dL (0.3-1.0) 04/11/18 15:14 AST 15 U/L (13-39) 04/11/18 15:14 ALT 14 U/L (7-52) 04/11/18 15:14 Alkaline Phosphatase 55 U/L (34-104) 04/11/18 15:14 Ammonia 39 umol/L (16-53) 04/12/18 05:30 Creatine Kinase 26 U/L (30-223) L 04/11/18 15:14 Total Protein 6.1 gm/dL (6.0-8.3) 04/11/18 15:14 Albumin 3.2 gm/dL (4.2-5.5) L 04/11/18 15:14 Globulin 2.9 gm/dL 04/11/18 15:14 Albumin/Globulin Ratio 1.1 (1.0-1.8) 04/11/18 15:14 Vitamin B12 912 pg/mL (232-1245) 04/12/18 05:30 Folic Acid 13.4 ng/mL (>3.0) 04/12/18 05:30 TSH 1.07 uIU/ml (0.34-5.60) 04/11/18 15:14 Urine Source RANDOM 04/12/18 11:30 Urine Color YELLOW 04/12/18 11:30 Urine Clarity CLEAR (CLEAR) 04/12/18 11:30 Urine pH 7.0 (4.6 - 8.0) 04/12/18 11:30 Ur Specific [place] 1.015 (1.005-1.030) 04/12/18 11:30 Urine Protein NEGATIVE mg/dL (NEGATIVE) 04/12/18 11:30 Urine Glucose (UA) NEGATIVE mg/dL (NEGATIVE) 04/12/18 11:30 Urine Ketones NEGATIVE mg/dL (NEGATIVE) 04/12/18 11:30 Urine Blood NEGATIVE (NEGATIVE) 04/12/18 11:30 Urine Nitrate NEGATIVE (NEGATIVE) 04/12/18 11:30 Urine Bilirubin NEGATIVE (NEGATIVE) 04/12/18 11:30 Urine Urobilinogen 0.2 E.U./dL (0.2 - 1.0) 04/12/18 11:30 Ur Leukocyte Esterase NEGATIVE (NEGATIVE) 04/12/18 11:30 Stool Occult Blood NEGATIVE (NEGATIVE) 04/13/18 05:50 Urine Opiates Screen NEGATIVE (NEGATIVE) 04/12/18 11:30 Urine Methadone Screen NEGATIVE (NEGATIVE) 04/12/18 11:30 Ur Barbiturates Screen NEGATIVE (NEGATIVE) 04/12/18 11:30 Ur Tricyclics Screen NEGATIVE (NEGATIVE) 04/12/18 11:30 Ur Phencyclidine Scrn NEGATIVE (NEGATIVE) 04/12/18 11:30 Amphetamines Screen NEGATIVE (NEGATIVE) 04/12/18 11:30 U Methamphetamines Scrn NEGATIVE (NEGATIVE) 04/12/18 11:30 U Benzodiazepines Scrn NEGATIVE (NEGATIVE) 04/12/18 11:30 U Cocaine Metab Screen NEGATIVE (NEGATIVE) 04/12/18 11:30 U Cannabinoids Screen NEGATIVE (NEGATIVE) 04/12/18 11:30 Helicobacter pylori Ab NEGATIVE (NEGATIVE) 04/15/18 09:10 Blood Type A POSITIVE 04/16/18 08:00 Antibody Screen NEGATIVE 04/16/18 08:00 Crossmatch See Detail 04/16/18 08:00 - Physical Exam Vitals and I&O: Vital Signs Temp 96.9 F 04/16/18 14:44 Pulse 60 04/16/18 14:44 Resp 18 04/16/18 14:44 BP 110/60 04/16/18 14:44 Pulse Ox 100 04/16/18 14:44 Intake & Output 04/15/18 04/16/18 04/16/18 18:59 06:59 18:59 Intake Total 50 50 918.333 Balance 50 50 918.333 Weight (lbs) 152 lb 8 oz 152 lb Intake: Intake, IV Amount 50 50 868.333 Cefepime 1 gm In Dextrose 50 50 5% 50 ml @ 100 mls/hr IV Q12HR [facility] Rx#:[id number] D5-0.45NS 1,000 ml @ 50 868.333 mls/hr IV .Q20H [facility] Rx#: [id number] Oral 50 Other: # Voids 2 3 # Bowel Movements 1 0 Stool Characteristics Soft Soft Liquid Liquid Brown Brown Black Black Weight Source Bedscale Bedscale Active Medications: Current Medications Acetaminophen (Tylenol Extra Strength) 500 mg PO Q6HR PRN PRN Reason: Pain (Mild) 1-3 Stop: 06/10/18 19:04 Last Admin: 04/13/18 21:37 Dose: 500 mg Albuterol Sulfate (Albuterol 2.5mg/3ml Neb Ud) 2.5 mg HHN QIDRT [facility] Stop: 06/11/18 06:59 Last Admin: 04/16/18 14:25 Dose: 2.5 mg Albuterol/Ipratropium (Duoneb Neb) 3 ml HHN Q4H PRN PRN Reason: Wheezing Stop: 06/12/18 19:10 Ascorbic Acid (Vitamin C) 500 mg PO DAILY [facility] Stop: 06/11/18 08:59 Last Admin: 04/16/18 08:58 Dose: 500 mg Docusate Sodium (Colace) 100 mg PO BID [facility] Stop: 06/12/18 16:59 Last Admin: 04/16/18 08:58 Dose: 100 mg Ferrous Sulfate (Iron) 325 mg PO BID [facility] Stop: 06/12/18 16:59 Last Admin: 04/16/18 08:58 Dose: 325 mg Guaifenesin (Robitussin) 200 mg PO Q4HR PRN PRN Reason: Cough or Congestion Stop: 06/10/18 19:08 Last Admin: 04/13/18 21:37 Dose: 200 mg Cefepime HCl 1 gm/ Dextrose 50 mls @ 100 mls/hr IV Q12HR [facility] Stop: 06/10/18 20:59 Last Admin: 04/16/18 09:00 Dose: 100 mls/hr Ipratropium [place] (Atrovent Neb 0.5mg/2.5ml) 0.5 mg HHN QIDRT [facility] Stop: 06/11/18 06:59 Last Admin: 04/16/18 14:25 Dose: 0.5 mg Miscellaneous (Probiotic Screen) 1 ea MC PRN PRN PRN Reason: PROTOCOL Stop: 06/15/18 14:41 Mupirocin (Bactroban Oint) 1 appl NS BID [facility] Stop: 04/17/18 09:01 Last Admin: 04/16/18 09:00 Dose: 1 appl Ondansetron HCl (Zofran) 4 mg IV Q8H PRN PRN Reason: Nausea / Vomiting Stop: 06/10/18 19:08 Last Admin: 04/13/18 21:37 Dose: 4 mg Pantoprazole Sodium (Protonix) 40 mg PO BID [facility] Stop: 06/15/18 16:59 Prednisone (Deltasone) 10 mg PO BID [facility] Stop: 04/23/18 16:59 Tamsulosin HCl (Flomax) 0.4 mg PO HS [facility] Stop: 06/10/18 20:59 Last Admin: 04/14/18 21:08 Dose: Not Given Zinc Sulfate (Zinc Sulfate) 220 mg PO DAILY [facility] Stop: 06/11/18 08:59 Last Admin: 04/16/18 08:58 Dose: 220 mg General: weak, alert HEENT: NC/AT, PERRLA Neck: Supple Lungs: CTAB Cardiovascular: RRR, Normal S1, Normal S2, without murmur Abdomen: distended (mildly distended) Extremities: excoriation Neurological: alert - Procedures Procedures: Procedures Procedure Code Date EXCISION OF STOMACH, PYLORUS, ENDO, DIAGN [id number] 04/11/18 PRP I/TING INIT BLOCK >5 YR 85220 06/13/17 REPAIR RIGHT FEMORAL REGION, OPEN APPROACH [id number] 06/13/17 SUPPLEMENT L INGUINAL REGION WITH SYNTH SUB, OPEN APPROACH [id number] 06/13/17 Internal Medicine Assmt/Plan - Assessment Assessment: s/p egd gastritis, Pneumonia, acute respiratory failure, methicillin-resistant staphylococcus aureus nares, hypertension, coronary artery disease, history of congestive heart failure, gastroesophageal reflux disease and dementia. - Plan Plan: dc planning after blood transfusion feSO4 bid follow up labs in am continue current plan of care Nutritional Asmnt/Malnutr-PDOC - Dietary Evaluation Malnutrition Findings (Please click <Entered> for more info): Nutritional Asmnt/Malnutrition Start: 04/15/18 17: 26 Text: Status: Complete Freq: Protocol: Document 04/15/18 17:26 [facility] (Rec: 04/15/18 17:52 [facility] [email or web address]) Nutritional Asmnt/Malnutrition Patient General Information Nutritional Screening Moderate Risk Diagnosis pneumonia & respiratory failure Pertinent Medical Hx/Surgical Hx HTN, CAD, CHF, GERD, arthritis , dementia, rhabdomyolysis, anemia Subjective Information Pt sleeping at time of visit. Pt was NPO d/t EGD procedure, but has resumed pureed diet post-op. Nursing noted PO intake: 50% prior to EGD. Per MD note, pt had nausea/ vomiting. Coffee ground emesis was seen per nurse note. Current Diet Order/ Nutrition Support Pureed Pertinent Medications Vit C, D5-0.45ns, colace, iron , protonix, zinc sulfate Pertinent Labs 04/15: Na 139, Cl 103, BUN 32, glucose 168 04/14: Na 133, Cl 97, BUN 26, glucose 190 Nutritional Hx/Data Height 5 ft 7 in Height (Calculated Centimeters) 170.2 Current Weight (lbs) 152 lb 8 oz Weight (Calculated Kilograms) 69.2 Weight (Calculated Grams) 29932.8 [place] Body Weight 148 lb Body Mass Index (BMI) 23.8 Weight Status Approriate GI Symptoms GI Symptoms None Last BM 04/15 Difficult in: None Food Allergies No Skin Integrity/Comment: keisha, carlos 13 Current %PO Fair (50-74%) Estimated Nutritional Goals BEE in Kcals: Using Current wt Calories/Kcals/Kg 27-32 Kcals Calculated 9419-2633 Protein: Using Current wt Protein g/k.0-1.2 Protein Calculated 69-83 g Fluid: ml 7783-2864 (1 ml/kcal) Nutritional Problem 2. Problem Problem Increased nutrient needs Etiology metabolic stress Signs/Symptoms: dx of sepsis and respiratory failure 1. Problem Problem Inadequate oral intake Etiology possible GI dysfunction Signs/Symptoms: PO intake 50% Intervention/Recommendation Comments 1. Continue with pureed diet as ordered and assist with meals as needed. Diet will provide sufficent nutrients for increased needs 2. Consider adding nutrition supplement if PO intake stays at 50% 3. Monitor PO intake, wt, skin integrity, and nutrition related labs 4. F/U as moderate risk in 3-5 days, 04/18- Expected Outcomes/Goals Expected Outcomes/Goals 1. PO intake to meet at least 75% of all meals 2. Wt stability, skin to remain intact, nutrition related labs to approach normal limits Reviewed by Iraida Puga RD
--- NOTE | 2018-04-16 15:55 | Pathology Report ---
[id number] Collection Date: 04/15/2018 Surgeon: Dr. Leo Cardona Specimen Description: 1: Antrum biopsy. 2: Esophageal biopsy. Gross Description: Part I: Received in formalin are 2 al soft tissue fragments ranging from 0.1 to 0.2 cm in greatest dimension. Totally submitted in one cassette labeled A. Gross Description: Part II: Received in formalin is a single al soft tissue fragment measuring 0.1 cm in greatest dimension. Totally submitted in one cassette labeled B. Microscopic Description: Part I: The histologic sections show gastric mucosa with mild chronic inflammation present consisting of small numbers of lymphocytes and plasma cells. The Giemsa stains show no evidence for Helicobacter pylori. Diagnoses: Part I: 1. Mild chronic gastritis, antrum biopsy. 2. The Giemsa stain is negative for Helicobacter pylori. Microscopic Description: Part II: The histologic sections show ulcerated squamous mucosa with acute on chronic inflammation present consisting of lymphocytes and neutrophils. There are reactive/inflammatory epithelial changes and fibrovascular proliferation associated with the ulceration, which is consistent with granulation tissue. The PAS stain shows no evidence for fungal organisms. The Alcian blue stain shows no significant abnormalities. Diagnoses: Part II: 1. Ulcerated esophageal mucosa showing acute and chronic inflammation, consistent with erosive esophagitis. 2. There is also extensive granulation tissue reaction associated with the ulcer. Comment: There is no evidence for malignancy. JOB# [id number] MTDD
[2018-04-16] MEDS ORDERED: Pantoprazole 40 mg EC Tab PO SCH (17:00)
[2018-04-16 18:43] LABS: % BASOPHILS 0.2 % (0.0-2.0); % EOSINOPHILS 0.4 % (0.0-5.0); % LYMPHOCYTES 3.1 % (20.0-50.0); % MONOCYTES 9.2 % (2.0-10.0); % NEUTROPHILS 87.1 % (40.0-80.0); LYMPHOCYTE ABSOLUTE 0.4 Th/cmm (1.5-3.0); MEAN CELL VOLUME 82.1 fl (80-99); MEAN CORPUSCULAR HEMOGLOBIN 26.9 pg (27.0-31.0); MEAN CORPUSCULAR HGB CONC 32.8 pg (28.0-36.0); MEAN PLATELET VOLUME 6.2 fl; NEUTROPHILE ABSOLUTE 9.9 Th/cmm (1.8-8.0); PLATELET COUNT 406 Th/cmm (150-400); RED BLOOD COUNT 3.73 Mil/cmm (3.80-5.80); RED CELL DISTRIBUTION WIDTH 15.4 % (11.5-20.0); WHITE BLOOD COUNT 11.3 Th/cmm (4.8-10.8)
[2018-04-16 18:57] LABS: HEMATOCRIT 30.6 % (41.0-60); HEMOGLOBIN 10.1 gm/dL (12-16)
== END 2018-04-16 22:00 | DRG 871 ==
LOC: ER 14:38 → MSI 15:15
PROVIDERS: ADMIT Internal Medicine; ATTEND Internal Medicine
PROC: 0DB78ZX Excision of Stomach, Pylorus, Via Natural or Artificial Opening Endoscopic, Diagnostic (ICD-10-PCS; principal; 2018-04-15)
PROC: 0DB58ZX Excision of Esophagus, Via Natural or Artificial Opening Endoscopic, Diagnostic (ICD-10-PCS; 2018-04-15)
PROC: 30233N1 Transfusion of Nonautologous Red Blood Cells into Peripheral Vein, Percutaneous Approach (ICD-10-PCS; 2018-04-16)
DX: A41.9 Sepsis, unspecified organism (principal); J96.00 Acute respiratory failure, unspecified whether with hypoxia or hypercapnia; J18.1 Lobar pneumonia, unspecified organism; K29.71 Gastritis, unspecified, with bleeding; K22.11 Ulcer of esophagus with bleeding; F03.91 Unspecified dementia, unspecified severity, with behavioral disturbance; I25.10 Atherosclerotic heart disease of native coronary artery without angina pectoris; F03.90 Unspecified dementia, unspecified severity, without behavioral disturbance, psychotic disturbance, mood disturbance, and anxiety; K21.9 Gastro-esophageal reflux disease without esophagitis; I50.9 Heart failure, unspecified; I11.0 Hypertensive heart disease with heart failure; M19.90 Unspecified osteoarthritis, unspecified site; D64.9 Anemia, unspecified; F29 Unspecified psychosis not due to a substance or known physiological condition; K44.9 Diaphragmatic hernia without obstruction or gangrene; R63.0 Anorexia; Z68.23 Body mass index [BMI] 23.0-23.9, adult; Z88.5 Allergy status to narcotic agent
CPT/HCPCS: 36415-UA; 71045-TC; 74000-TC; 76700-TC; 80048-TC; 80053-TC; 80307; 81003-TC; 82140-TC; 82270-TC; 82550-TC; 82607-90; 82746-90; 83036-90; 83540-90; 83550-90; 83605; 83735-TC; 84100-TC; 84443-TC; 85007-TC; 85025-TC; 85610-TC; 85730-TC; 86850-TC; 86900-TC; 86901-TC; 86922-TC; 87070; 87338-TC; 90779; 94760; C9113; J0692; J2060; J2405; J2920; J3490; J7613; P9016; Z7610